=== PATIENT | female | born 1950 | race Caucasian/White ===

== ENCOUNTER → 2016-12-08 | Outpatient (CLI) | payer MEDICARE | END | disposition home or self-care (01) | LOC: LABPAT 14:42 | PROVIDERS: ATTEND Orthopaedic Surgery | DX: Z01.812 Encounter for preprocedural laboratory examination (principal) | CPT/HCPCS: 87070 ==

== ENCOUNTER 2016-12-23 07:20 | Inpatient (IN) | payer MEDICARE ==
--- NOTE | 2016-12-22 10:36 | HP ---
DATE OF ADMISSION: CHIEF COMPLAINT: Right knee pain. HISTORY OF PRESENT ILLNESS: The patient is a 65-year-old retired female who presents with progressive right knee pain secondary to osteoarthrosis, despite extensive conservative treatment. She has tried previous medications along with injections with only partial temporary relief. She notes knee pain severely limits her normal function and activities. PAST MEDICAL HISTORY: Significant for arthritis, hypertension. PAST SURGICAL HISTORY: Significant for cholecystectomy, hysterectomy, left total knee arthroplasty, right foot surgery and tonsillectomy. CURRENT MEDICATIONS: 1. Aleve. 2. Aspirin. 3. Atenolol. 4. Benadryl. 5. Lisinopril. 6. Prilosec. 7. Simvastatin. She denies drug allergies. FAMILY HISTORY: Significant for COPD and Parkinson's. SOCIAL HISTORY: Negative for current tobacco or alcohol use. A 16-point review of systems otherwise reviewed and is noncontributory. On examination, the patient is approximately 5 foot 1, 184 pounds of endomorphic habitus. HEENT exam is nonfocal. Neck is supple. She is nontender about the cervical, thoracic and lumbar spine. She has painless passive motion of the right hip. Straight leg raise is negative. Active motion right knee -7 to 105 degrees of flexion. She has a moderate effusion. She is tender about the medial joint line. Collaterals are stable, Solomon is negative, Elke's is equivocal. She has genu varum alignment. Her distal neurovascular exam appears be intact in the right lower extremity. Previous x-rays to include weight-bearing, notch, lateral, and merchant views of the right knee obtained in the office show severe medial and patellofemoral compartment narrowing. IMPRESSION: 1. Right knee severe medial and patellofemoral compartment osteoarthrosis. 2. Increased body mass index. RECOMMENDATIONS: I talked to the patient at length regarding her treatment options. At this point, she opts to proceed with surgery. We will plan to proceed with right total knee arthroplasty. Risks and benefits are discussed at length in layman's terms. We will institute DVT prophylaxis postoperatively. The patient underwent preoperative medical evaluation by Dr. Ledesma.
[~2016-12-23 07:20] MED LIST: ACETAMINOPHEN TAB 500 MG TAB PO ONE; DEXAMETHASONE SOD PHOSPHATE 10 MG/ML 1 ML VIAL IV ONE; HYDROmorphone 1 MG/ML 1 ML SYRINGE IVP PRN; LACTATED RINGERS 1,000 ML IV SCH; MELOXICAM 7.5 MG TAB PO ONE; MIDAZOLAM 2 MG/2 ML VIAL IV PRN; ONDANSETRON 4 MG/2 ML VIAL IVP ONE; TRANEXAMIC ACID 1,000 MG in SODIUM CHLORIDE 0.9% 100 ML IVPB ONE; ceFAZolin 2 GM in SODIUM CHLORIDE 0.9% 100 ML IVPB ONE
[2016-12-23 11:57] VITALS: RESP 16
[2016-12-23] MEDS ORDERED: LIDOCAINE 1% 20 ML VIAL (10MG/ML) FOR IV START INTRADERMA ONE (12:03)
[2016-12-23] MEDS ORDERED: ROPIVACAINE 1,100 MG, SODIUM CHLORIDE 0.9% 330 ML MISCELLANE PRN ×2 (13:27)
--- NOTE | 2016-12-23 13:30 | P.ONQ ---
Anesthesiology Proc Note - PNB - Peripheral Nerve Block Performed Right Adductor Canal Time Out Performed: Yes (12:16) Indication: Acute Post-Operative Pain, Requested by physician (Dr Cabrales) Sedation Type: Sedate with meaningful contact maintained Preparation: Sterile Dressing Position: Supine Catheter: Indwelling Needle Types: On-Q Needle Size: 100mm (4") Needle Gauge: 20 Technique: Ultrasound Injectate: 0.5% Ropivacaine (see comment for volume) (22cc) Blood Aspirated: No Pain Paresthesia on Injection Noted: No Resistance on Injection: Normal Events: Uneventful and Well Tolerated
[2016-12-23] MEDS ORDERED: ROPIVACAINE 246.25 MG, EPINEPHrine 0.5 MG, KETOROLAC 30 MG, cloNIDine HCL/PF 80 MCG, WA... MISCELLANE ONE ×5 (13:40)
[2016-12-23] MEDS ORDERED: GLYCOPYRROLATE 0.2 MG/ML 2 ML VIAL ONE (14:06)
[2016-12-23] MEDS ORDERED: MIDAZOLAM 2 MG/2 ML VIAL ONE (14:06)
[2016-12-23] MEDS ORDERED: LIDOCAINE 1% INJ 10MG/ML (20 ML MDV) ONE (14:06)
[2016-12-23] MEDS ORDERED: ROCURONIUM BROMIDE 10 MG/ML 10 ML VIAL IV ONE (14:06)
[2016-12-23] MEDS ORDERED: PROPOFOL 10 MG/ML 20 ML VIAL IV ONE (14:06)
[2016-12-23] MEDS ORDERED: NEOSTIGMINE 1 MG/ML 10 ML VIAL ONE (14:06)
[2016-12-23] MEDS ORDERED: SUCCINYLCHOLINE CHLORIDE 100 MG/5 ML SYR IV ONE (14:06)
[2016-12-23] MEDS ORDERED: fentaNYL (PF) 50 MCG/ML 2 ML AMP ONE (14:06)
[2016-12-23] MEDS ORDERED: ceFAZolin 3,000 MG in SODIUM CHLORIDE 0.9% IRRIGATIO 3,000 ML IRRIGATION ONE (14:52)
[2016-12-23] MEDS ORDERED: LACTATED RINGERS 1,000 ML IV ONE ×2 (15:05→16:08)
[2016-12-23] MEDS ORDERED: HYDROmorphone 1 MG/ML 1 ML SYRINGE IVP PRN ×2 (16:21)
[2016-12-23] MEDS ORDERED: HYDROcodone/APAP 5-325MG 1 EACH TAB PO PRN (16:21)
[2016-12-23] MEDS ORDERED: ONDANSETRON 4 MG/2 ML VIAL IVP PRN (16:21)
[2016-12-23] MEDS ORDERED: traMADol 50 MG TAB PO PRN (16:21)
[2016-12-23] MEDS ORDERED: MAGNESIUM HYDROXIDE 2,400 MG/10 ML CUP PO PRN (16:21)
[2016-12-23] MEDS ORDERED: NALOXONE 0.4 MG/ML 1 ML VIAL IV PRN (16:21)
--- NOTE | 2016-12-23 16:44 | P.OP ---
Date of Procedure: 12/23/16 Preoperative Diagnosis: Severe right knee tricompartmental osteoarthrosis-primary Postoperative Diagnosis: Same Procedure(s) Performed: Right total knee gwlbvincrrnq-khhaurnn-dcvlgzra retaining Implants: Depuy Attune size 5 cemented femoral component, size 4 cemented tibial component , 9 mm articular surface, 35 mm cemented patellar component. This is a cruciate retaining implant. Anesthesia: GETA, regional, local Surgeon: Alex Cabrales Senior Tax Specialist #1: Mani Augustine Estimated Blood Loss (ml): 50 Pathology: other (Bone fragments) Condition: stable Disposition: PACU Indications for Procedure: The patient's a 65-year-old female presents with progressive right knee pain secondary to osteoarthrosis despite conservative measures. A discussion of the risks and benefits of operative intervention versus continued conservative measures was made with patient. She opted to proceed with surgery. Operative risks to include infection, neurovascular injury, development of blood clots, possible component loosening, possible component failure and need for subsequent procedures was discussed. Informed consent was obtained. Operative Findings: Severe tricompartmental osteoarthrosis Description of Procedure: The patient was brought to the operating room, and after induction of general anesthesia as a spinal anesthetic was not obtainable, the right lower extremity was prepped and draped in a normal fashion. The limb was elevated to facilitate exsanguination. The tourniquet was inflated to 270 mm mode. A longitudinal incision extending 3 finger breaths above this year pole of patella extending to the medial aspect of the tibial tubercle was then made. The skin and subcutaneous tissues were divided sharply. Electrocautery was used for hemostasis. A medial parapatellar arthrotomy was performed. The medial soft tissues to include the superficial and deep portions of the medial collateral ligament as well as the medial hamstring tendons were elevated subperiosteally. Medial proximal tibial osteophytes were carefully removed. The patella was everted. The portion of the retropatellar fat pad was excised sharply. The knee was then flexed. The anterior cruciate ligament was sacrificed. Blunt retractors were placed. A starting hole was made in the distal femur 1 cm anterior to the posterior cruciate ligament origin. An intramedullary guide was then gently inserted planning on 5 valgus distal cut with 9 mm distal resection. The cutting block was pinned in place. The distal cut was then made. The posterior referencing sizing guide was utilized. 3 of external rotation was built into the system and verified off the trans- epicondylar axis and the posterior condyles. I felt size 5 was most appropriate. The cutting block was pinned in place. The anterior, posterior, and chamfer cuts were then made. The bone fragments were removed. The notch cut was then made with the appropriate guide. The trial size 5 femoral component was placed and was fully seated. There was good anterior to posterior and medial to lateral fit. The peg holes were drilled. The trial component was removed. An extra medullary tibial guide was utilized in line with the tibial shaft and second metatarsal distally. I planned on 7 mm of posterior slope. I planned on 2 mm resection from the medial compartment. The cutting block was pinned in place. The posterior cruciate ligament was protected with a retractor. The proximal tibial cut was made in the bone was removed in one fragment. The tibia sized most appropriate size 4. The remnants of the medial and lateral menisci were excised the capsule junction with electrocautery. The posterior osteophytes off the distal femur were carefully removed a curved osteotome. The flexion and extension gaps were checked and felt to be symmetric. The trial femoral and tibial components placed along with a 9 mm articular surface. I was able to obtain full flexion and extension with good stability with varus and valgus stress. After several flexion and extension cycles the tibial rotation was marked with electrocautery in line with the medial one third of the tibial tubercle. The patella was prepared with the reamer taking this down to 14 mm of bone stock. A good flush cut was made. Patella sized most appropriately 35 mm. The peg holes were drilled. The trial components placed. The knee was taken through range of motion. I had good patellofemoral tracking with no hands technique. The trial components were removed. The tibia was prepared in the appropriate rotation with appropriate drill and keel punch. The bony surfaces were prepared with pulsatile lavage and dried. The posterior soft tissues were injected with ropivacaine. The tibial component was then cemented in placed and was fully seated. Excess cement was removed. The femoral component cemented in placed and was fully seated. Excess cement was removed. The trial 9 m articular surface was placed and the knee was put in full extension. The patella component was cemented in placed and was fully seated. Excess cement was removed. After the cement had sufficiently hardened, the knee was again taken through range of motion. Again I had good stability with varus and valgus stress in flexion and extension. The trial articular surface was removed and the final 9 mm articular surface placed. This was fully seated. Care was taken to avoid any soft tissue interposition. Pulsatile lavage was utilized. The medial parapatellar arthrotomy was closed with running #2 Ethibond suture. A deep drain was placed exiting laterally. The tourniquet was deflated with proximally 70 minutes total tourniquet time. Final hemostasis was obtained with electrocautery. The subcu tissues reapproximated interrupted 2-0 Vicryl sutures. The skin was repaired with 3-0 subcuticular strata fix suture. Skin tape and adhesive was applied. A sterile dressing was applied. The patient was awoken from general anesthesia and transferred to the recovery room in good condition. Blood loss was estimated at 80 mL. No complications were incurred. Sponge and needle counts were correct at the end the case.
--- NOTE | 2016-12-23 16:52 | XR ---
EXAMINATION TYPE: XR knee limited RT DATE OF EXAM: 12/23/2016 4:44 PM COMPARISON: NONE TECHNIQUE: One view submitted HISTORY: Post op FINDINGS: There is a prosthetic knee in near anatomic alignment. There is soft tissue edema and emphysema. Boss rgical drain noted. IMPRESSION: 1. Postoperative change. Appears in near-anatomic alignment
[2016-12-23] MEDS ORDERED: ROPIVACAINE 5 MG/ML 30 ML VIAL MISCELLANE ONE (16:54)
[2016-12-23] MEDS: SENNOSIDES-DOCUSATE SODIUM 1 EACH TAB PO SCH (20:11)
[2016-12-23] MEDS ORDERED: ACETAMINOPHEN TAB 500 MG TAB PO PRN (20:56)
[2016-12-23] MEDS: ceFAZolin 2 GM in SODIUM CHLORIDE 0.9% 100 ML IVPB SCH (21:20)
[2016-12-23] MEDS: DULoxetine HCL 60 MG CAPSULE.DR PO SCH (21:22)
[2016-12-23] MEDS: CHOLECALCIFEROL 1,000 UNIT TAB PO SCH (21:22)
[2016-12-23] MEDS: diphenhydrAMINE 25 MG CAP PO PRN (21:22)
[2016-12-23] MEDS: PANTOPRAZOLE 40 MG TABLET PO SCH (21:22)
[2016-12-23] MEDS: ATORVASTATIN 20 MG TAB PO SCH (21:22)
[2016-12-23 21:30] VITALS: BMI 29.2
[2016-12-23] MEDS: HYDROcodone/APAP 5-325MG 1 EACH TAB PO PRN (23:03)
--- NOTE | 2016-12-23 23:08 | P.CONS ---
History of Present Illness - Reason for Consult Consult date: 12/23/16 Medical management Requesting physician: Alex Cabrales - Chief Complaint Post right total knee arthroplasty, hypertension, hyperlipidemia, hypothyro - History of Present Illness 65-year-old female with past medical history of hypertension, hyperlipidemia hypothyroidism and Raynaud's who had left total knee arthroplasty long time ago and has done very well with it. Patient had developed severe increased arthritis of the right knee for the last 2 years become much worse the last few month had affected her ability to ambulate be active and be able to enjoy life. Patient was seen Dr. Caraballo with her failure to conservative management patient was scheduled for elective right total knee arthroplasty which was done today successfully with no major complication. Patient was admitted to the surgical floor afterward has been watch and monitor hemodynamically pain is under control so far patient is doing well. Review of Systems Constitutional: Reports fatigue, Reports lethargy, Reports malaise, Reports weakness, Denies as per HPI, Denies anorexia, Denies chills, Denies chronic headaches, Denies chronic pain, Denies daytime sleepiness, Denies fever, Denies night sweats, Denies poor appetite, Denies sweats, Denies weight gain, Denies weight loss Eyes: bilateral as per HPI Ears: bilateral: decreased hearing Ears, nose, mouth and throat: Reports ant. neck pain, Reports nasal discharge, Reports sinus pain, Reports sinus pressure, Denies as per HPI, Denies bleeding gums, Denies dental pain, Denies dysphagia, Denies epistaxis, Denies headache, Denies hoarseness, Denies mouth pain, Denies nasal congestion, Denies neck fullness/pressure, Denies neck lump, Denies nose pain, Denies odynophagia, Denies post-nasal drip, Denies swelling in mouth, Denies swelling in throat, Denies sore throat, Denies vertigo, Denies voice changes Cardiovascular: Reports leg edema, Denies as per HPI, Denies chest pain, Denies claudication, Denies decreased exercise tolerance, Denies dyspnea on exertion, Denies edema, Denies high blood pressure, Denies irregular heart beat, Denies lightheadedness, Denies orthopnea, Denies palpitations, Denies paroxysmal nocturnal dyspnea, Denies phlebitis, Denies rapid heart beat, Denies shortness of breath, Denies syncope Respiratory: Reports congestion, Reports cough, Denies as per HPI, Denies cough with sputum, Denies dyspnea, Denies excessive sputum, Denies hemoptysis, Denies home oxygen, Denies pain, Denies pain on inspiration, Denies pleurisy, Denies respiratory infections, Denies sleep apnea, Denies snoring, Denies wheezing Gastrointestinal: Reports abdominal pain, Reports dyspepsia, Reports early satiety, Reports indigestion, Reports nausea, Denies as per HPI, Denies belching , Denies bloating, Denies BRBPR, Denies change in bowel habits, Denies coffee ground emesis, Denies constipation, Denies diarrhea, Denies excessive gas, Denies heartburn, Denies hematemesis, Denies hematochezia, Denies jaundice, Denies lactose intolerance, Denies loss of appetite, Denies melena, Denies vomiting Genitourinary: Denies as per HPI, Denies abnormal vaginal bleeding, Denies decreased libido, Denies difficulty conceiving, Denies difficulty voiding, Denies dysmenorrhea, Denies dyspareunia, Denies dysuria, Denies flank pain, Denies genital sores, Denies hematuria, Denies hot flashes, Denies incomplete emptying, Denies kidney stones, Denies menorrhagia, Denies mixed incontinence, Denies nocturia, Denies pelvic pain, Denies post void dribbling, Denies , Denies prolapse symptoms, Denies stress incontinence, Denies urge incontinence , Denies urgency, Denies urinary frequency, Denies vaginal discharge, Denies vaginal dryness, Denies vaginal itching, Denies vaginal odor Musculoskeletal: Reports myalgias, Reports neck pain, Reports neck stiffness, Denies as per HPI, Denies arm numbness/tingling, Denies atrophy, Denies fractures, Denies frequent falls, Denies gait dysfunction, Denies hot joints, Denies leg numbness/tingling, Denies limitation of motion, Denies loss of height , Denies low back pain, Denies morning stiffness, Denies muscle cramps, Denies muscle weakness, Denies prior amputations, Denies redness of joints, Denies shooting arm pain, Denies shooting leg pain Integumentary: Reports pruritus, Reports rash, Denies as per HPI, Denies acne, Denies boils, Denies brittle nails, Denies change in hair/nails, Denies color changes, Denies darkening of skin, Denies depigmentation, Denies dryness, Denies foot/leg ulcers, Denies growths, Denies hirsutism, Denies lesions, Denies onychomycosis, Denies sores, Denies striae, Denies unusual bruising, Denies wounds Neurological: Denies as per HPI, Denies aphasia, Denies ataxia, Denies balance difficulties, Denies burning pain, Denies change in mentation, Denies change in smell/taste, Denies change in speech, Denies confusion, Denies convulsions, Denies double vision, Denies gait dysfunction, Denies head injury, Denies headaches, Denies hearing difficulties, Denies lack of coordination, Denies loss of vision, Denies memory loss, Denies migraines, Denies motor disturbance, Denies numbness, Denies paralysis, Denies paresthesias, Denies seizures, Denies sensory deficit, Denies spasticity, Denies syncope, Denies tic, Denies tingling , Denies transient paralysis, Denies tremors, Denies vertigo, Denies weakness, Denies visual changes Psychiatric: Reports anhedonia, Reports depression, Reports mood swings, Reports sadness/tearfulness, Denies as per HPI, Denies anxiety, Denies anxiety attacks, Denies change in appetite, Denies change in libido, Denies change in sleep habits, Denies confusion, Denies difficulty concentrating, Denies disorientation, Denies hallucinations, Denies hopelessness, Denies hypersomnia, Denies insomnia, Denies irritability, Denies memory loss, Denies paranoia, Denies sleep disturbances, Denies suicidal ideation Endocrine: Reports nocturia, Reports polyphagia, Reports polyuria, Denies as per HPI, Denies cold intolerance, Denies deepening of the voice, Denies excessive sweating, Denies excessive thirst, Denies fatigue, Denies flushing, Denies heat intolerance, Denies high blood sugars, Denies increase in ring/shoe/ hat size, Denies low blood sugars, Denies palpitations, Denies polydipsia, Denies proptosis, Denies recent glucocorticoid use, Denies thyroid mass, Denies weight change Hematologic/Lymphatic: Denies as per HPI, Denies easy bleeding, Denies easy bruising, Denies lymphadenopathy, Denies lymphedema, Denies thrombophilia Allergic/Immunologic: Denies as per HPI, Denies allergic rhinitis, Denies anaphylaxis, Denies angioedema, Denies gluten intolerance, Denies persistent infections, Denies seasonal allergies, Denies urticaria, Denies wheezing Past Medical History Past Medical History: Chest Pain / Angina, Hyperlipidemia, Hypertension, Osteoarthritis (OA), Thyroid Disorder Additional Past Medical History / Comment(s): Raynauds, varicose veins, hx frequent UTI's History of Any Multi-Drug Resistant Organisms: None Reported Past Surgical History: Cholecystectomy, Heart Catheterization, Hysterectomy, Joint Replacement, Orthopedic Surgery, Tonsillectomy Additional Past Surgical History / Comment(s): left knee replacement, surgery hammertoes darrell feet, heel spur rt foot, wrist right tendonitis surgery Past Anesthesia/Blood Transfusion Reactions: Family History of Problems w/ Anesthesia Additional Past Anesthesia/Blood Transfusion Reaction / Comm: sister-pt not sure of what problems(will try to find out prior to surgery) Past Psychological History: Depression Smoking Status: Never smoker Past Alcohol Use History: Rare Past Drug Use History: None Reported - Past Family History Mother Family Medical History: Congestive Heart Failure (CHF) Father Family Medical History: Myocardial Infarction ([place]) Medications and Allergies Home Medications Medication Instructions Recorded Confirmed Type Acetaminophen [Tylenol] 500 mg PO Q4H PRN 12/18/16 12/23/16 History Aspirin [Adult Low Dose Aspirin EC] 81 mg PO DAILY 12/18/16 12/23/16 History Cholecalciferol [Vitamin D3] 1,000 unit PO BID 12/18/16 12/23/16 History DULoxetine HCL [Cymbalta] 60 mg PO HS 12/18/16 12/23/16 History Lisinopril [Zestril] 10 mg PO DAILY 12/18/16 12/23/16 History Multivitamins, Thera [Multivitamin] 1 tab PO DAILY 12/18/16 12/23/16 History NIFEdipine [NIFEdipine ER] 60 mg PO DAILY 12/18/16 12/23/16 History Naproxen Sodium [Aleve] 220 mg PO Q12HR 12/18/16 12/23/16 History Omeprazole 40 mg PO BID 12/18/16 12/23/16 History Simvastatin [Zocor] 40 mg PO HS 12/18/16 12/23/16 History diphenhydrAMINE HCL [Benadryl] 25 mg PO Q4H PRN 12/18/16 12/23/16 History Allergies Allergy/AdvReac Type Severity Reaction Status Date / Time No Known Allergies Allergy Verified 12/23/16 17:10 Physical Exam Vitals: Vital Signs Temp Pulse Pulse Resp BP BP Pulse Ox 12/23/16 20:36 97 12/23/16 19:30 89 121/79 12/23/16 19:15 87 124/74 12/23/16 19:00 85 120/71 12/23/16 18:45 86 116/70 12/23/16 18:30 88 121/68 12/23/16 18:15 82 121/70 12/23/16 18:00 85 111/70 12/23/16 17:45 93 116/72 12/23/16 17:30 97.1 F L 85 16 115/69 97 12/23/16 17:15 87 16 127/55 96 12/23/16 17:00 85 16 129/65 97 12/23/16 16:45 88 16 124/65 97 12/23/16 16:34 98.0 F 91 16 123/64 97 12/23/16 11:55 98.2 F 95 16 126/73 95 Intake and Output 12/23/16 12/23/16 12/23/16 06:59 14:59 22:59 Intake Total 1101 4099 Output Total 225 Balance 1101 3874 Intake: IV 1101 4099 Output: Urine 175 Estimated Blood Loss 50 Other: Weight 72.575 kg Patient Weight 12/24/16 06:59 Weight 72.575 kg - Constitutional General appearance: no average body habitus, cooperative, no disheveled, no mild distress, no morbidly obese, no acute distress, no obese, no severe distress, no thin - EENT Eyes: no abnormal pupil, no anicteric sclerae, no disc margins sharp, no edentulous, no EOMI, no PERRLA, no fundus normal, no photophobia, no dentition normal, no poor dentition, no ptosis, no scleral icterus, normal appearance ENT: no hard of hearing, no hearing grossly normal, no NA/AT, no normal oropharynx, no other, pharyngeal erythema, no thrush, no tonsillar exudates, no tonsillar swelling Ears: bilateral: normal - Neck Neck: no lymphadenopathy, normal ROM, no other, no rigidity, no stridor, no thyromegaly Carotids: bilateral: upstroke normal Thyroid: bilateral: normal size - Respiratory Respiratory: bilateral: CTA - Cardiovascular Rhythm: regular Heart sounds: normal: S1, S2 Abnormal Heart Sounds: systolic murmur - Gastrointestinal General gastrointestinal: no absent bowel sounds, no decreased bowel sounds, no distended, no hepatomegaly, no hyperactive bowel sounds, normal bowel sounds, no organomegaly, no rigid, no scaphoid, soft, no splenomegaly, no tenderness, no umbilical hernia, no ventral hernia - Integumentary Integumentary: no calor, no cellulitis, no cyanotic, no decreased turgor, no flushed, no jaundiced, normal, no normal turgor, pale, no rash, no ulcer - Neurologic Neurologic: CNII-XII intact - Musculoskeletal Musculoskeletal: gait normal, generalized weakness, strength equal bilaterally, no right sided weakness, no left sided weakness - Psychiatric Psychiatric: A&O x's 3, appropriate affect Assessment and Plan Plan: 1 post right total knee arthroplasty: Stable resume home meds, watch patient hemodynamic status, GI, DVT, pulmonary prophylaxis protocol will be use. 2 hypertension: Has been well controlled on nifedipine and lisinopril continue both medication. 3 hyperlipidemia: Has been on Zocor 40 mg daily. 4 severe GERD: Has been on omeprazole 40 mg twice a day continue medication. 5 depression: Has been on Cymbalta 60 mg daily. 6 DVT prophylaxis: Patient was started on Xarelto 10 mg daily for the next 4 weeks. 7 pain management: Patient has a block currently and was started on hydrocodone orally as needed. CODE STATUS: Full code. Dr. Cabrales thank you very much for the consult if I can be any further help to please let me know.
[2016-12-24] MEDS: diphenhydrAMINE 25 MG CAP PO PRN ×2 (01:10→22:16)
[2016-12-24] MEDS: HYDROcodone/APAP 5-325MG 1 EACH TAB PO PRN ×4 (04:16→19:59)
[2016-12-24] MEDS: ceFAZolin 2 GM in SODIUM CHLORIDE 0.9% 100 ML IVPB SCH (05:24)
[2016-12-24 07:20] LABS: Basophils % (A) 0 %; CHCM 33.2; Eosinophils % (A) 0 %; HDW 2.36; HGB 10.9 gm/dL (11.4-16.0); Luc # (Auto) 0.15; Luc % (Auto) 2; Lymphocytes # (A) 1.4 k/uL (1.0-4.8); Lymphocytes % (A) 18 %; MCH 31.9 pg (25.0-35.0); MCV 96.8 fL (80.0-100.0); Mean Platelet Volume 6.7; Monocytes # (A) 0.5 k/uL (0-1.0); Monocytes % (A) 7 %; Neutrophils % (A) 74 %; RBC 3.41 m/uL (3.80-5.40); RDW 12.3 % (11.5-15.5); WBC 8.2 k/uL (3.8-10.6); WBC (Perox) 8.68
[2016-12-24] MEDS: PANTOPRAZOLE 40 MG TABLET PO SCH ×2 (08:48→17:57)
[2016-12-24] MEDS: FAMOTIDINE 20 MG TAB PO SCH (08:48)
[2016-12-24] MEDS: ASPIRIN 81 MG CHEW PO SCH (08:48)
[2016-12-24] MEDS: RIVAROXABAN 10 MG TAB PO SCH (08:49)
[2016-12-24] MEDS: CHOLECALCIFEROL 1,000 UNIT TAB PO SCH ×2 (08:49→19:59)
[2016-12-24] MEDS: LISINOPRIL 10 MG TAB PO SCH (08:49)
[2016-12-24] MEDS: MULTIVITAMINS, THERA 1 EACH TAB PO SCH (08:50)
--- NOTE | 2016-12-24 10:10 | P.PN ---
Progress Note - Text . Postoperative day # 1 status post total right knee arthroplasty, and adductor canal catheter placed for postoperative analgesia, currently at ropivacaine 0.2% 8 mL per hour and continuous infusion, catheter site local. There is no erythema, and there is no tenderness, visual analogue scale is 4/10 , patient using oral pain medication for breakthrough pain. Assessment and plan= Acute postoperative pain, adductor canal catheter for pain control, pain is well controlled we'll continue the same management.
--- NOTE | 2016-12-24 12:29 | P.PN ---
Subjective Principal diagnosis: Status post right total knee arthroplasty Patient is seen today resting in her hospital bed, she appears comfortable. Pain is well-controlled at this time. She denies any chest pain, shortness of breath, fever chills, lightheadedness. Objective - Vital Signs Vital signs: Vital Signs Temp 98.9 F 12/24/16 11:57 Pulse 86 12/24/16 11:57 Resp 16 12/24/16 11:57 BP 142/64 12/24/16 11:57 Pulse Ox 95 12/24/16 11:57 Intake & Output 12/23/16 12/24/16 12/24/16 18:59 06:59 18:59 Intake Total 5200 500 500 Output Total 225 1450 1900 Balance 4975 -950 -1400 Weight 72.575 kg Intake: IV 5200 500 Lactated Ringers 1,000 ml 450 @ 50 mls/hr IV .Q20H TONY Rx#:[id number] ceFAZolin 2 gm In Sodium 50 Chloride 0.9% 100 ml @ 100 mls/hr IVPB ONCE ONE Rx#:[id number] Oral 500 Output: Drainage 250 Right Knee 250 Urine 175 1200 1900 Uretheral (Sandra) 1200 1900 Estimated Blood Loss 50 Other: Voiding Method Indwelling Catheter Indwelling Catheter - Exam Right lower extremity: Incision is clean, dry and intact. Minimal swelling present around the knee. Calf is soft, no tenderness with palpation. Plantar flexion, dorsiflexion, EHL , FHL are intact. Sensory exam to light touch starting extremities intact, cap refills less than 2 seconds - Labs CBC & Chem 7: 12/24/16 06:58 Labs: Abnormal Lab Results - Last 24 Hours (Table) 12/24/16 Range/Units 06:58 RBC 3.41 L (3.80-5.40) m/uL Hgb 10.9 L (11.4-16.0) gm/dL Hct 33.0 L (34.0-46.0) % Assessment and Plan Plan: Assessment: 1. Postop day #1 status post right total knee arthroplasty Plan: 1. Pain control, continue supportive oral medications 2. Continue use of therapy and CPM 3. Ice and elevate/daily dressing changes 4. Encourage his spirometer 5. GI and DVT prophylaxis 6. Medical recommendations 7. Discharge planning: Patient will likely be discharged home tomorrow Time with Patient: Less than 30
--- NOTE | 2016-12-24 15:57 | P.PN ---
Subjective Principal diagnosis: Post right total knee arthroplasty, hypertension, hyperlipidemia, hypothyro 65-year-old female with past medical history of hypertension, hyperlipidemia hypothyroidism and Raynaud's who had left total knee arthroplasty long time ago and has done very well with it. Patient had developed severe increased arthritis of the right knee for the last 2 years become much worse the last few month had affected her ability to ambulate be active and be able to enjoy life. Patient was seen Dr. Caraballo with her failure to conservative management patient was scheduled for elective right total knee arthroplasty which was done today successfully with no major complication. Patient was admitted to the surgical floor afterward has been watch and monitor hemodynamically pain is under control so far patient is doing well. Pain is well managed through the night, CHILD PROTECTIVE SERVICES SPECIALIST was stopped, fully catheter was removed and patient was start ambulating today with PT. Objective - Vital Signs Vital signs: Vital Signs Temp 97.6 F 12/24/16 15:00 Pulse 86 12/24/16 15:00 Resp 16 12/24/16 15:00 BP 136/58 12/24/16 15:00 Pulse Ox 97 12/24/16 15:00 Intake & Output 12/23/16 12/24/16 12/24/16 18:59 06:59 18:59 Intake Total 5200 500 1000 Output Total 225 1450 1900 Balance 4975 -950 -900 Weight 72.575 kg Intake: IV 5200 500 Lactated Ringers 1,000 ml 450 @ 50 mls/hr IV .Q20H [facility] Rx#:[id number] ceFAZolin 2 gm In Sodium 50 Chloride 0.9% 100 ml @ 100 mls/hr IVPB ONCE ONE Rx#:[id number] Oral 1000 Output: Drainage 250 Right Knee 250 Urine 175 1200 1900 Uretheral (Sandra) 1200 1900 Estimated Blood Loss 50 Other: Voiding Method Indwelling Catheter Indwelling Catheter # Voids 1 - Constitutional General appearance: Present: cooperative, no acute distress. Absent: average body habitus, disheveled, mild distress, morbidly obese, obese, severe distress , thin - EENT Eyes: Present: normal appearance. Absent: abnormal pupil, anicteric sclerae, disc margins sharp, edentulous, EOMI, PERRLA, fundus normal, photophobia, dentition normal, poor dentition, ptosis, scleral icterus ENT: Present: hard of hearing, normal oropharynx. Absent: hearing grossly normal, NA/AT, other, pharyngeal erythema, thrush, tonsillar exudates, tonsillar swelling Ears: bilateral: normal - Neck Neck: Present: normal ROM. Absent: lymphadenopathy, other, rigidity, stridor, thyromegaly Carotids: bilateral: upstroke normal Thyroid: bilateral: normal size - Respiratory Respiratory: bilateral: CTA, diminished - Cardiovascular Rhythm: regular Heart sounds: normal: S1, S2 Abnormal Heart Sounds: Present: systolic murmur - Gastrointestinal General gastrointestinal: Present: decreased bowel sounds, normal bowel sounds, soft. Absent: absent bowel sounds, distended, hepatomegaly, hyperactive bowel sounds, organomegaly, rigid, scaphoid, splenomegaly, tenderness, umbilical hernia, ventral hernia - Integumentary Integumentary Comment(s): Right knee incision looks fine with no induration hematoma or bleeding no calf tenderness and no swelling in the legs. Integumentary: Present: normal, pale, rash. Absent: calor, cellulitis, cyanotic , decreased turgor, flushed, jaundiced, normal turgor, ulcer - Neurologic Neurologic: Present: CNII-XII intact - Musculoskeletal Musculoskeletal: Present: gait normal, generalized weakness, strength equal bilaterally. Absent: right sided weakness, left sided weakness - Psychiatric Psychiatric: Present: A&O x's 3, appropriate affect. Absent: intact judgment & insight - Labs CBC & Chem 7: 12/24/16 06:58 Labs: Abnormal Lab Results - Last 24 Hours (Table) 12/24/16 Range/Units 06:58 RBC 3.41 L (3.80-5.40) m/uL Hgb 10.9 L (11.4-16.0) gm/dL Hct 33.0 L (34.0-46.0) % Assessment and Plan Plan: 1 post right total knee arthroplasty: Stable resume home meds, watch patient hemodynamic status, GI, DVT, pulmonary prophylaxis protocol will be use. 2 hypertension: Has been well controlled on nifedipine and lisinopril continue both medication. 3 hyperlipidemia: Has been on Zocor 40 mg daily. 4 severe GERD: Has been on omeprazole 40 mg twice a day continue medication. 5 depression: Has been on Cymbalta 60 mg daily. 6 DVT prophylaxis: Patient was started on Xarelto 10 mg daily for the next 4 weeks. 7 pain management: Patient has a block currently and was started on hydrocodone orally as needed. Off IV pain meds and tolerating medication well. CODE STATUS: Full code.
[2016-12-24] MEDS: ATORVASTATIN 20 MG TAB PO SCH ×2 (19:59→20:11)
[2016-12-24] MEDS: DULoxetine HCL 60 MG CAPSULE.DR PO SCH (19:59)
[2016-12-24] MEDS: SENNOSIDES-DOCUSATE SODIUM 1 EACH TAB PO SCH (20:01)
[2016-12-25] MEDS: HYDROcodone/APAP 5-325MG 1 EACH TAB PO PRN ×3 (00:59→12:00)
[2016-12-25 07:13] LABS: Basophils % (A) 0 %; CH 31.9; CHCM 32.8; Eosinophils # (A) 0.2 k/uL (0-0.7); Eosinophils % (A) 4 %; HDW 2.36; HGB 11.4 gm/dL (11.4-16.0); Luc # (Auto) 0.12; Luc % (Auto) 2; Lymphocytes # (A) 1.2 k/uL (1.0-4.8); Lymphocytes % (A) 22 %; MCH 31.7 pg (25.0-35.0); MCHC 32.4 g/dL (31.0-37.0); MCV 97.7 fL (80.0-100.0); Mean Platelet Volume 6.7; Monocytes # (A) 0.5 k/uL (0-1.0); Monocytes % (A) 9 %; Neutrophils # (A) 3.4 k/uL (1.3-7.7); Neutrophils % (A) 62 %; RBC 3.59 m/uL (3.80-5.40); RDW 12.4 % (11.5-15.5); WBC 5.4 k/uL (3.8-10.6); WBC (Perox) 5.46
[2016-12-25 07:33] VITALS: BP 126/72; PULSE 82; TEMP 98.1
[2016-12-25 07:39] LABS: ALT 36 U/L (9-52); AST 29 U/L (14-36); Alkaline Phosphatase 63 U/L (38-126); Anion Gap 6 mmol/L; Blood Urea Nitrogen 11 mg/dL (7-17); Calcium 8.5 mg/dL (8.4-10.2); Carbon Dioxide 29 mmol/L (22-30); Chloride 103 mmol/L (98-107); Glucose 100 mg/dL (74-99); Non-African American GFR(MDRD) >60 (>60 ml/min/1.73 sqM); Potassium 4.3 mmol/L (3.5-5.1); Sodium 138 mmol/L (137-145); Total Bilirubin 0.7 mg/dL (0.2-1.3); Total Protein 5.7 g/dL (6.3-8.2)
--- NOTE | 2016-12-25 08:27 | P.PN ---
Progress Note - Text The patient is status post right adductor canal catheter placement. The catheter was placed for postoperative pain control, status post total right arthroplasty. Ropivacaine 0.2% is infusing at 14 mLs per hour. The patient has no complaints of right lower extremity numbness or weakness. Patient's VAS score is 4 -10. The patient has received some supplemental oral pain medicine. Assessment: Patient's adductor canal catheter is in place and working appropriately. Plan: continue infusion and adjust it as needed.
[2016-12-25] MEDS: LISINOPRIL 10 MG TAB PO SCH (09:38)
[2016-12-25] MEDS: CHOLECALCIFEROL 1,000 UNIT TAB PO SCH (09:38)
[2016-12-25] MEDS: MULTIVITAMINS, THERA 1 EACH TAB PO SCH (09:38)
[2016-12-25] MEDS: RIVAROXABAN 10 MG TAB PO SCH (09:38)
[2016-12-25] MEDS: FAMOTIDINE 20 MG TAB PO SCH (09:38)
[2016-12-25] MEDS: ASPIRIN 81 MG CHEW PO SCH (09:38)
[2016-12-25] MEDS: PANTOPRAZOLE 40 MG TABLET PO SCH (09:39)
--- NOTE | 2016-12-25 11:06 | P.DS ---
Providers Date of admission: 12/23/16 11:29 Expected date of discharge: 12/25/16 Attending physician: Alex Cabrales Consults: 12/23/16 16:21 Consult Physician Routine Consulting Provider: Fitz Ledesma Reason/Comments: Medical management Do you want consulting provider notified?: Yes Primary care physician: Fitz Ledesma Hospital Course: Date of admission: 12/23/2016 Date of discharge: 12/25/2016 Admission diagnosis: Status post right total knee arthroplasty Discharge diagnosis: Same Attending physician: Dr. Cabrales Surgical procedures: Right total knee arthroplasty Brief history: Patient is a 65-year-old female with a history of progressive primary right knee osteoarthritis. At this point patient has failed conservative treatment measures and has opted to proceed with a elective right total knee arthroplasty. Hospital course: Details of patient's surgery can be found in operative report. Patient tolerated the procedure well and was subsequently transported to orthopedic floor. Patient's orthopeidc and medical care was provided daily. Patient had daily laboratory tests performed for evaluation of overall blood counts. Patient had daily physical therapy to include strengthening range of motion as well as education with walker ambulation. Patient had daily CPM usage as part of their physical therapy program. Patient was treated with Xarelto for their postoperative DVT prophylaxis during their inpatient stay. Patient was noted to have a relatively uneventful postoperative course. Patient reported satisfactory pain control with oral pain medications by postoperative day 0. Patient showed satisfactory progress with physical therapy. Patient moved steadily through the program and had no difficulty meeting the goals by postoperative day 2. Given patient's otherwise satisfactory course and having met physical therapy goals, plan is to discharge patient home on postoperative day 2. Discharge condition/disposition: Patient will be discharged home in stable condition. Discharge medications: Instructions are given on resumption of patient's normal daily medications per primary care recommendation, in addition patient will be prescribed [place] 5 mg/325 mg, tramadol 50 mg, Colace 100 mg, Xarelto 10 mg. Discharge instructions: 1. Wound care and infection precautions, keep incision dry and covered while showering, no lotions, creams, moisturizers. No soaking, tubs, pools, hottubs. Do not scrub over the incision. 2. Weight-bear as tolerated with walker / cane until follow-up. 3. Ice and elevate when necessary. Do not exceed 20 minutes per hour with ice pack. 4. Utilize compression sleeve until seen at first follow up appointment. 5. Visiting nursing care. 6. Home physical therapy including home CPM. 7. Pain meds and anticoagulants per prescription. 8. Pain medication has potential to cause constipation. Increase oral fluid and fiber intake. Contact primary care provider if you have not had a bowel movement within 48 hours after discharge 9. No anti-inflammatory medication until discussed at first post operative visit, this including Motrin, Aleve, Mobic, Diclofenac. 10. Follow up in office at 2 weeks postop with Orlin Augustine PA-C 11. Follow up with your primary care doctor 7-10 days after discharge. 12. Contact [facility] with any questions, . Procedures: Right total knee arthroplasty Patient Condition at Discharge: Good Plan - Discharge Summary New Discharge Prescriptions: Docusate [Colace] 100 mg PO DAILY #20 capsule Hydrocodone/Acetaminophen [[place] 5-325] 1 - 2 each PO Q6HR PRN #60 tab PRN Reason: Pain Rivaroxaban [Xarelto] 10 mg PO DAILY #12 tab traMADol HCl [Ultram] 50 mg PO Q6H PRN #40 tab PRN Reason: Pain Discharge Medication List Acetaminophen [Tylenol] 500 mg PO Q4H PRN 12/18/16 [History] Aspirin [Adult Low Dose Aspirin EC] 81 mg PO DAILY 12/18/16 [History] Cholecalciferol [Vitamin D3] 1,000 unit PO BID 12/18/16 [History] DULoxetine HCL [Cymbalta] 60 mg PO HS 12/18/16 [History] Lisinopril [Zestril] 10 mg PO DAILY 12/18/16 [History] Multivitamins, Thera [Multivitamin] 1 tab PO DAILY 12/18/16 [History] NIFEdipine [NIFEdipine ER] 60 mg PO DAILY 12/18/16 [History] Naproxen Sodium [Aleve] 220 mg PO Q12HR 12/18/16 [History] Omeprazole 40 mg PO BID 12/18/16 [History] Simvastatin [Zocor] 40 mg PO HS 12/18/16 [History] diphenhydrAMINE HCL [Benadryl] 25 mg PO Q4H PRN 12/18/16 [History] Rivaroxaban [Xarelto] 10 mg PO DAILY #12 tab 12/23/16 [Rx] Docusate [Colace] 100 mg PO DAILY #20 capsule 12/25/16 [Rx] Hydrocodone/Acetaminophen [[place] 5-325] 1 - 2 each PO Q6HR PRN #60 tab 12/25/16 [Rx] traMADol HCl [Ultram] 50 mg PO Q6H PRN #40 tab 12/25/16 [Rx] Follow up Appointment(s)/Referral(s): Mani Augustine PAC [PHYSICIAN PULL WORKER] - 2 Weeks [facility] Visiting Nurse, [NON-STAFF] - Patient Instructions/Handouts: Knee Replacement (DC) Activity/Diet/Wound Care/Special Instructions: Walker - has at home CPM - has at home Orthopedic Discharge Instructions: 1. Wound care and infection precautions, keep incision dry and covered while showering, no lotions, creams, moisturizers. No soaking, pools, hot tubs. Do not scrub over incision. 2. Weight-bear as tolerated with walker / cane until follow-up. 3. Ice and elevate when necessary. Do not exceed 20 minutes per hour with ice pack. 4. Utilize compression sleeve until seen at first follow up appointment. 5. Visiting nursing care. 6. Home physical therapy including home CPM. 7. Pain meds and anticoagulants per prescription. 8. Pain medication has potential to cause constipation. Increase oral fluid and fiber intake. Contact primary care provider if you have not had a bowel movement within 48 hours after discharge. 9. No anti-inflammatory medication until discussed at first post operative visit, this including Motrin, Aleve, Mobic, Diclofenac. 10. Follow up in office at 2 weeks postop with Orlin Augustine PA-C 11. Follow up with your primary care doctor 7-10 days after discharge. 12. Contact [facility] with any questions, . Discharge Disposition: HOME WITH HOME HEALTH SERVICES
--- NOTE | 2016-12-25 11:06 | P.PN ---
Subjective Principal diagnosis: Status post right total knee arthroplasty Patient is seen today resting in her hospital bed, she appears comfortable. Pain is well-controlled at this time. She denies any chest pain, shortness of breath, fever chills, lightheadedness. Objective - Vital Signs Vital signs: Vital Signs Temp 98.1 F 12/25/16 07:00 Pulse 82 12/25/16 07:00 Resp 16 12/25/16 07:00 BP 126/72 12/25/16 07:00 Pulse Ox 93 L 12/25/16 07:00 Intake & Output 12/24/16 12/25/16 12/25/16 18:59 06:59 18:59 Intake Total 1500 240 Output Total 1900 Balance -400 240 Intake: Oral 1500 240 Output: Urine 1900 Uretheral (Sandra) 1900 Other: Voiding Method Indwelling Catheter Toilet Toilet # Voids 1 1 1 - Exam Right lower extremity: Incision is clean, dry and intact. Minimal swelling present around the knee. Calf is soft, no tenderness with palpation. Plantar flexion, dorsiflexion, EHL , FHL are intact. Sensory exam to light touch starting extremities intact, cap refills less than 2 seconds - Labs CBC & Chem 7: 12/25/16 06:35 12/25/16 06:35 Labs: Abnormal Lab Results - Last 24 Hours (Table) 12/25/16 12/25/16 Range/Units 06:35 06:35 RBC 3.59 L (3.80-5.40) m/uL Glucose 100 H (74-99) mg/dL Total Protein 5.7 L (6.3-8.2) g/dL Albumin 3.3 L (3.5-5.0) g/dL Assessment and Plan Plan: Assessment: 1. Postop day #2 status post right total knee arthroplasty Plan: 1. Pain control, continue supportive oral medications 2. Continue use of therapy and CPM 3. Ice and elevate/daily dressing changes 4. Encourage his spirometer 5. GI and DVT prophylaxis 6. Medical recommendations 7. Discharge planning: Patient will likely discharged home when stable Time with Patient: Less than 30
--- NOTE | 2016-12-30 14:28 | P.PN ---
Subjective 65-year-old female with past medical history of hypertension, hyperlipidemia hypothyroidism and Raynaud's who had left total knee arthroplasty long time ago and has done very well with it. Patient had developed severe increased arthritis of the right knee for the last 2 years become much worse the last few month had affected her ability to ambulate be active and be able to enjoy life. Patient was seen Dr. Caraballo with her failure to conservative management patient was scheduled for elective right total knee arthroplasty which was done today successfully with no major complication. Patient was admitted to the surgical floor afterward has been watch and monitor hemodynamically pain is under control so far patient is doing well. Pain is well managed through the night, SUPERVISOR BEET END was stopped, fully catheter was removed and patient was start ambulating today with PT. 12/25: Patient is being prepared for discharge home today. Xarelto samples will be available for patient to pepper picker at Dr. Ledesma's office. Medication reconciliation completed. Objective - Vital Signs Vital signs: Vital Signs Temp 98.1 F 12/25/16 07:00 Pulse 82 12/25/16 07:00 Resp 16 12/25/16 07:00 BP 126/72 12/25/16 07:00 Pulse Ox 93 L 12/25/16 07:00 Intake & Output 12/24/16 12/25/16 12/25/16 18:59 06:59 18:59 Intake Total 1500 240 Output Total 1900 Balance -400 240 Intake: Oral 1500 240 Output: Urine 1900 Uretheral (Sandra) 1900 Other: Voiding Method Indwelling Catheter Toilet Toilet # Voids 1 1 1 - Exam General appearance: Present: cooperative, no acute distress. Absent: average body habitus, disheveled, mild distress, morbidly obese, obese, severe distress , thin - EENT Eyes: Present: normal appearance. Absent: abnormal pupil, anicteric sclerae, disc margins sharp, edentulous, EOMI, PERRLA, fundus normal, photophobia, dentition normal, poor dentition, ptosis, scleral icterus ENT: Present: hard of hearing, normal oropharynx. Absent: hearing grossly normal, NA/AT, other, pharyngeal erythema, thrush, tonsillar exudates, tonsillar swelling Ears: bilateral: normal - Neck Neck: Present: normal ROM. Absent: lymphadenopathy, other, rigidity, stridor, thyromegaly Carotids: bilateral: upstroke normal Thyroid: bilateral: normal size - Respiratory Respiratory: bilateral: CTA, diminished - Cardiovascular Rhythm: regular Heart sounds: normal: S1, S2 Abnormal Heart Sounds: Present: systolic murmur - Gastrointestinal General gastrointestinal: Present: decreased bowel sounds, normal bowel sounds, soft. Absent: absent bowel sounds, distended, hepatomegaly, hyperactive bowel sounds, organomegaly, rigid, scaphoid, splenomegaly, tenderness, umbilical hernia, ventral hernia - Integumentary Integumentary Comment(s): Right knee incision looks fine with no induration hematoma or bleeding no calf tenderness and no swelling in the legs. Integumentary: Present: normal, pale, rash. Absent: calor, cellulitis, cyanotic , decreased turgor, flushed, jaundiced, normal turgor, ulcer - Neurologic Neurologic: Present: CNII-XII intact - Musculoskeletal Musculoskeletal: Present: gait normal, generalized weakness, strength equal bilaterally. Absent: right sided weakness, left sided weakness - Psychiatric Psychiatric: Present: A&O x's 3, appropriate affect. Absent: intact judgment & insight - Labs CBC & Chem 7: 12/25/16 06:35 12/25/16 06:35 Labs: Abnormal Lab Results - Last 24 Hours (Table) 12/25/16 12/25/16 Range/Units 06:35 06:35 RBC 3.59 L (3.80-5.40) m/uL Glucose 100 H (74-99) mg/dL Total Protein 5.7 L (6.3-8.2) g/dL Albumin 3.3 L (3.5-5.0) g/dL Assessment and Plan Plan: 1 post right total knee arthroplasty: Stable resume home meds, watch patient hemodynamic status, GI, DVT, pulmonary prophylaxis protocol will be use. 2 hypertension: Has been well controlled on nifedipine and lisinopril continue both medication. 3 hyperlipidemia: Has been on Zocor 40 mg daily. 4 severe GERD: Has been on omeprazole 40 mg twice a day continue medication. 5 depression: Has been on Cymbalta 60 mg daily. 6 DVT prophylaxis: Patient was started on Xarelto 10 mg daily for the next 4 weeks. 7 pain management: Patient has a block currently and was started on hydrocodone orally as needed. Off IV pain meds and tolerating medication well. CODE STATUS: Full code. Discharge plan: Return home with [facility] Impression and plan of care have been directed as dictated by the signing physician. Elly Davis nurse practitioner acting as scribe for signing physician. Time with Patient: Greater than 30
== END 2016-12-25 13:30 | disposition home health service (06) | DRG 470 ==
LOC: 2ORMAIN 11:29 → 3SUR 16:12
PROVIDERS: ADMIT Orthopaedic Surgery; ATTEND Orthopaedic Surgery
PROC: 0JH Subcutaneous Tissue and Fascia, Insertion (ICD-10-PCS; 2016-12-23)
PROC: 3E0T3BZ Introduction of Anesthetic Agent into Peripheral Nerves and Plexi, Percutaneous Approach (ICD-10-PCS; 2016-12-23)
PROC: 0SRC0J9 Replacement of Right Knee Joint with Synthetic Substitute, Cemented, Open Approach (ICD-10-PCS; principal; 2016-12-23 13:20)
DX: M17.11 Unilateral primary osteoarthritis, right knee (principal); I10 Essential (primary) hypertension; E03.9 Hypothyroidism, unspecified; E78.5 Hyperlipidemia, unspecified; G89.18 Other acute postprocedural pain; I73.00 Raynaud's syndrome without gangrene; M21.169 Varus deformity, not elsewhere classified, unspecified knee; F32.9 Major depressive disorder, single episode, unspecified; I83.90 Asymptomatic varicose veins of unspecified lower extremity; K21.9 Gastro-esophageal reflux disease without esophagitis; Z79.82 Long term (current) use of aspirin; Z79.899 Other long term (current) drug therapy; Z96.652 Presence of left artificial knee joint; Z82.49 Family history of ischemic heart disease and other diseases of the circulatory system
CPT/HCPCS: 80053; 85025; 88300; 94760

== ENCOUNTER → 2017-03-25 | Outpatient (CLI) | payer MEDICARE ==
--- NOTE | 2017-03-25 16:42 | WWHP ---
CHIEF COMPLAINT: Patient is here for her routine gynecologic exam and mammogram. HPI: This is a 66-year-old G1, P0-0-1-0 with an LMP of 2002. The patient is without gynecologic complaints. She is status post FRANKO/BSO in 2002 for benign reasons. PAST MEDICAL HISTORY: Chronic hypertension, elevated cholesterol, depression, arthritis, osteopenia, gastroesophageal reflux disease and Raynaud syndrome. MEDICATIONS: 1. Lisinopril 10 mg daily. 2. Procardia ER 60 mg daily. 3. Simvastatin 40 mg daily. 4. Mobic 7.5 mg b.i.d. 5. Omeprazole 40 mg b.i.d. 6. Duloxetine 60 mg daily. 7. Lomotil p.r.n. 8. Aleve p.r.n. 9. Vitamin D3, 1000 units b.i.d. 10. Aspirin 81 mg daily. ALLERGIES: No known drug allergies. PAST SURGICAL HISTORY: Left knee replacement surgery in the past, right knee replacement surgery 2016, FRANKO/BSO in 2002, colonoscopy 2011, cholecystectomy, heel spur surgery, D&C and tonsillectomy in the past. 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 SOCIAL HISTORY: She denies tobacco and drug use and has 0 to 1 alcoholic drink per month. She is a retired, but enjoys gardening and walking her dogs. She is not seeing anybody at this time and is not sexually active. REVIEW OF SYSTEMS: She has lost about 33 pounds over the last year. This was after gaining about 40 pounds from the years prior to the last year. She denies respiratory, cardiac or GI problems. She denies maltreatment or falling. : She denies any significant problems with urinary leakage. PHYSICAL EXAM: Blood pressure 118/66. Height 5 feet 1-1/2 inches. Weight 163 pounds. Temperature 96.4, pulse 91. This is a well-developed, well-nourished white female who is alert and oriented x3, in no acute distress. HEENT is within normal limits. NECK: Supple without mass or thyromegaly. CHEST AND LUNGS: Clear to auscultation. HEART: Regular rate and rhythm. Breasts are without mass or discharge. Axillary is negative for adenopathy. BACK: Negative for CVA tenderness. ABDOMEN: Soft, nontender, without palpable masses. PELVIC: External genitalia reveal moderate atrophy without lesions. Vagina reveals moderate atrophy without lesions. There is no evidence of prolapse. Bimanual is negative for mass or tenderness. Rectovaginal is negative for mass or tenderness and is negative for occult blood. EXTREMITIES: Nontender. IMPRESSION: 1. A 66-year-old menopausal female, status post total abdominal hysterectomy/bilateral salpingo-oophorectomy for benign reasons with normal gynecologic exam. 2. History of osteopenia. PLAN: 1. Pap smears have been discontinued. 2. Self-breast examination was discussed. 3. Mammogram will be done today. 4. Osteoporosis prevention was discussed. Will plan on repeating bone density test in 1 year. 5. She does get flu shots in the fall. 6. She will return in 1 year.
--- NOTE | 2017-03-27 08:29 | MM ---
Reason for exam: screening (asymptomatic). Last mammogram was performed 1 year and 5 months ago. History: Patient is postmenopausal and is nulliparous. Family history of breast cancer in grandmother at age 50. Took hormonal contraceptives for 15 years beginning at age 18. Physical Findings: A clinical breast exam by your physician is recommended on an annual basis and results should be correlated with mammographic findings. MG 3D Screening Mammo W/Cad Bilateral CC and MLO view(s) were taken. Prior study comparison: October 26, 2015, bilateral MG 3d screening mammo w/cad. October 16, 2014, bilateral MG screening mammo w CAD. February 03, 2013, bilateral digital screening mammo w/CAD. There are scattered fibroglandular densities. No significant changes when compared with prior studies. ASSESSMENT: Negative, BI-RAD 1 RECOMMENDATION: Routine screening mammogram of both breasts in 1 year.
== END | disposition home or self-care (01) ==
LOC: WWCWWP 09:54
PROVIDERS: ATTEND Obstetrics & Gynecology
DX: Z12.31 Encounter for screening mammogram for malignant neoplasm of breast (principal)
CPT/HCPCS: 77063; G0202

== ENCOUNTER → 2017-12-14 | Outpatient (CLI) | payer MEDICARE ==
--- NOTE | 2017-12-14 13:49 | CT ---
EXAMINATION TYPE: CT brain wo con DATE OF EXAM: 12/14/2017 COMPARISON: NONE HISTORY: syncope, bruising to Lt eye CT DLP: [address] of the brain was performed. The ventricles, basal cisterns and sulci overlying the cerebral convexities demonstrate mild enlargem ent. There is no evidence for intracranial hemorrhage or sulcal effacement. There is decreased attenuation about the periventricular white matter and deep white matter of both c erebral hemispheres, compatible with chronic small vessel ischemia. Differential diagnosis does inclu de demyelination. No mass effects are seen.No midline shift. Osseous calvarium is intact. If symptoms persist consider MRI. IMPRESSION: 1. Age related atrophic and chronic small vessel ischemic change without acute intracranial process s een at this time.
== END | disposition home or self-care (01) ==
LOC: RADCTMAIN 13:02
PROVIDERS: ATTEND Internal Medicine Geriatric Medicine
DX: G31.9 Degenerative disease of nervous system, unspecified (principal); I67.82 Cerebral ischemia
CPT/HCPCS: 70450

== ENCOUNTER → 2017-12-15 | Outpatient (CLI) | payer MEDICARE ==
--- NOTE | 2017-12-15 08:06 | US ---
EXAMINATION TYPE: US carotid duplex BILAT DATE OF EXAM: 12/15/2017 COMPARISON: NONE CLINICAL HISTORY: R55 Syncope and Collapse. EXAM MEASUREMENTS: RIGHT: Peak Systolic Velocity (PSV) cm/sec ----- Right CCA: 93.0 ----- Right ICA: 95.2 ----- Right ECA: 95.2 ICA/CCA ratio: 1.0 RIGHT: End Diastole cm/sec ----- Right CCA: 27.0 ----- Right ICA: 25.9 ----- Right ECA: 18.2 LEFT: Peak Systolic Velocity (PSV) cm/sec ----- Left CCA: 95.2 ----- Left ICA: 91.9 ----- Left ECA: 72.1 ICA/CCA ratio: 1.0 LEFT: End Diastole cm/sec ----- Left CCA: 20.4 ----- Left ICA: 34.7 ----- Left ECA: 16.0 VERTEBRALS (direction of flow): Right Vertebral: Antegrade Left Vertebral: Antegrade Rhythm: Normal IMPRESSION: No significant stenosis seen, no elevated velocities, mild bilateral plaque. Criteria for Assigning % of Stenosis / Diameter reduction (Estimation based on the indirect measurements of the internal carotid artery velocities (ICA PSV). 1. Normal (no stenosis)=ICA PSV < 125 cm/s: ratio < 2.0: ICA EDV<40 cm/s. 2. Less than 50% stenosis=ICA PSV < 125 cm/s: ratio < 2.0: ICA EDV<40 cm/s. 3. 50 to 69% stenosis=ICA PSV of 125 to 230 cm/s: ration 2.0 ? 4.0: ICA EDV 40-100 cm/s. 4. Greater than 70% stenosis to near occlusion= ICA PSV > 230 cm/s: ratio > 4.0: ICA EDV > 100 cm/s. 5. Near occlusion= ICA PSV velocities may be low or undetectable: variable ratio and ICA EDV. 6. Total occlusion=unable to detect flow.
== END | disposition home or self-care (01) ==
LOC: RADUSWWP 07:35
PROVIDERS: ATTEND Internal Medicine Geriatric Medicine
DX: I65.23 Occlusion and stenosis of bilateral carotid arteries (principal)
CPT/HCPCS: 93880

== ENCOUNTER → 2017-12-23 | Outpatient (CLI) | payer MEDICARE ==
--- NOTE | 2017-12-23 16:33 | XR ---
Facial bones HISTORY: Pain, contusion 3 views of the facial bones Bone mineralization is maintained. No displaced fracture is evident. No abnormal fluid collection in the paranasal sinuses to suggest acute hemorrhage. Orbits thought to be intact. Patient is rotated ho wever. IMPRESSION: No displaced fracture is evident, correlate for point tenderness, consider CT scan for in creased sensitivity as indicated.
== END | disposition home or self-care (01) ==
LOC: RADXRMAIN 13:42
PROVIDERS: ATTEND Internal Medicine Geriatric Medicine
DX: R51 Headache (principal)
CPT/HCPCS: 70150

== ENCOUNTER → 2018-03-30 | Outpatient (CLI) | payer MEDICARE ==
[2018-03-30 11:42] VITALS: BP 114/75; PULSE 80; RESP 16; TEMP 98.2; BMI 31.4
--- NOTE | 2018-03-30 12:37 | P.HPOB ---
History of Present Illness H&P Date: 03/30/18 Chief Complaint: The patient is here for her routine gynecologic exam and mammogram. This is a 67-year-old with an LMP of 2002. She is status post FRANKO BSO for benign reasons. She has been experiencing intermittent low abdominal and pelvic pains for about 6 months. She states they do not seem to be related to any one particular activity. She describes it as a pressure occasionally makes her stop what she is doing and she is doubled over. The discomfort usually stops after a while when she stops what she is doing. She rates the pain at 3 out of 10 at this time. The pain can get up to an 8 out of 10. She also has occasional right flank discomfort that can be associated with the pain. She has been having normal bowel movements. She denies any dysuria or urinary urgency. She denies any prolapse from the vaginal opening. Review of Systems She has gained about 3 pounds over the last year. She denies respiratory, cardiac, or G.I. problems. She denies maltreatment. She did fall in December 2017. She has been undergoing a workup for this including a cardiac workup. : she denies any significant problems with urinary leakage. Past Medical History Past Medical History: Chest Pain / Angina, GERD/Reflux, Hyperlipidemia, Hypertension, Osteoarthritis (OA), Thyroid Disorder Additional Past Medical History / Comment(s): Raynauds, varicose veins, hx frequent UTI's, arthritis and osteopenia. 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 She just did have a FRANKO BSO for endometriosis and abnormal bleeding. History of Any Multi-Drug Resistant Organisms: None Reported Past Surgical History: Cholecystectomy, Heart Catheterization, Hysterectomy ( FRANKO BSO in 2002), Joint Replacement, Orthopedic Surgery, Tonsillectomy Additional Past Surgical History / Comment(s): left knee replacement, surgery hammertoes darrell feet, heel spur rt foot, wrist right tendonitis surgery, D&C. Colonoscopy 2011. Past Anesthesia/Blood Transfusion Reactions: Family History of Problems w/ Anesthesia Additional Past Anesthesia/Blood Transfusion Reaction / Comment(s): sister-pt not sure of what problems(will try to find out prior to surgery) Past Psychological History: Depression Smoking Status: Never smoker Past Alcohol Use History: Rare (1 to 2 per year) Past Drug Use History: None Reported Additional History: She is single and is not sexually active. She is retired. - Past Family History Mother Family Medical History: Congestive Heart Failure (CHF) Father Family Medical History: Congestive Heart Failure (CHF), Myocardial Infarction ( [place]) Medications and Allergies Home Medications Medication Instructions Recorded Confirmed Type Acetaminophen [Tylenol] 500 mg PO Q4H PRN 12/18/16 12/23/16 History Aspirin [Adult Low Dose Aspirin EC] 81 mg PO DAILY 12/18/16 12/23/16 History Cholecalciferol [Vitamin D3] 1,000 unit PO BID 12/18/16 12/23/16 History DULoxetine HCL [Cymbalta] 60 mg PO HS 12/18/16 12/23/16 History Lisinopril [Zestril] 10 mg PO DAILY 12/18/16 12/23/16 History Multivitamins, Thera [Multivitamin] 1 tab PO DAILY 12/18/16 12/23/16 History NIFEdipine [NIFEdipine ER] 60 mg PO DAILY 12/18/16 12/23/16 History Naproxen Sodium [Aleve] 220 mg PO Q12HR 12/18/16 12/23/16 History Omeprazole 40 mg PO BID 12/18/16 03/30/18 History Simvastatin [Zocor] 40 mg PO HS 12/18/16 03/30/18 History diphenhydrAMINE HCL [Benadryl] 25 mg PO Q4H PRN 12/18/16 12/23/16 History Rivaroxaban [Xarelto] 10 mg PO DAILY #12 tab 12/23/16 Rx Baclofen [Lioresal] 5 mg PO BID PRN #20 tablet 12/25/16 Rx Docusate [Colace] 100 mg PO DAILY #20 capsule 12/25/16 Rx Hydrocodone/Acetaminophen [[place] 1 - 2 each PO Q6HR PRN #60 tab 12/25/16 Rx 5-325] traMADol HCl [Ultram] 50 mg PO Q6H PRN #40 tab 12/25/16 Rx Aspirin [Adult Low Dose Aspirin EC] 80 mg PO DAILY 03/30/18 03/30/18 History DULoxetine HCL [Cymbalta] 60 mg PO DAILY 03/30/18 03/30/18 History Ergocalciferol (Vitamin D2) 1,000 unit PO 03/30/18 History [Vitamin D2] Lisinopril [Zestril] 03/30/18 History Lisinopril [Zestril] 10 mg PO DAILY 03/30/18 03/30/18 History Multivitamin [Men's Multi-Vitamin] PO DAILY 03/30/18 History Naproxen Sodium [Aleve] 220 mg PO DAILY 03/30/18 03/30/18 History Allergies Allergy/AdvReac Type Severity Reaction Status Date / Time No Known Allergies Allergy Verified 12/23/16 17:10 Exam - Vital Signs Vital signs: Vital Signs Temp Pulse Resp BP 03/30/18 11:29 98.2 F 80 16 114/75 Intake and Output 03/29/18 03/30/18 03/30/18 22:59 06:59 14:59 Other: Weight 75.296 kg Height 5'1", BMI 31.4. This is a well-developed well-nourished white female who is alert and oriented times 3 in no acute distress. HEENT: Within normal limits. NECK: Supple without mass or thyromegaly. CHEST AND LUNGS: Clear to auscultation. HEART: Regular rate and rhythm. BREASTS: Are without mass or discharge. AXILLARY EXAM: Negative for adenopathy. BACK: Negative for CVA tenderness. ABDOMEN: Soft, with mild bilateral low abdominal tenderness without rebound tenderness, and without palpable masses. PELVIC EXAM: External genitalia appears normal with mild to moderate atrophy. Vagina appears normal of mild to moderate atrophy. There is no evidence of prolapse. Bimanual examination is negative for mass but there is mild generalized pelvic tenderness is greatest on the left side. RECTAL EXAM: Rectovaginal exam is negative for mass or tenderness and is negative for occult blood. EXTREMITIES: Nontender. IMPRESSION: 1. 67-year-old menopausal female who status post FRANKO BSO for benign reasons. 2. 6 month history of intermittent low abdominal and pelvic pains with mild low abdominal and pelvic tenderness greatest on the left side. There are no palpable masses. At this time I doubt gynecologic pain. Differential diagnosis will include ovarian remnant cyst, pelvic adhesions, G.I. discomfort, hernia and other non-gynecologic pain. At this time I do not see evidence of pelvic organ prolapse. 3. History of osteopenia. PLAN: 1. Pap smears have been discontinued. 2. Self breast awareness was discussed. 3. The patient will be scheduled for pelvic ultrasound. 4. Screening mammogram will be done today. 5. Osteoporosis prevention was discussed. Bone density testing will be done today. 6. Clean catch urinalysis and culture with sensitivity has been obtained. 7. She does get flu shots in the fall. 8. She will return in one year and PRN.
[2018-03-30 14:46] LABS: Appearance,Urine Clear (Clear); Bilirubin,Urine Negative (Negative); Blood,Urine Negative (Negative); Color,Urine Light Yellow; Glucose,Urine (UA) Negative (Negative); Ketones,Urine Negative (Negative); Leukocyte Esterase,Urine Negative (Negative); Nitrite,Urine Negative (Negative); PH, Urine 7.5 (5.0-8.0); Protein,Urine Negative (Negative); Specific Gravity,Urine 1.005 (1.001-1.035); Urobilinogen,Urine <2.0 mg/dL (<2.0)
--- NOTE | 2018-03-30 14:56 | BD ---
EXAMINATION TYPE: Axial Bone Density DATE OF EXAM: 03/30/2018 COMPARISON: NONE CLINICAL HISTORY: Height: 5 FT Weight: 163 FRAX RISK QUESTIONS: History of Fracture in Adulthood: YES Secondary Osteoporosis: Rheumatoid Arthritis: YES RISK FACTORS HISTORY OF: Surgery to Spine/Hip(right/left)/Wrist (right/left): RT WRIST When: 1968 Family History of Osteoporosis: YES Active: YES Postmenopausal woman: AGE 52 MEDICATIONS: Additional Medications: LISINOPRIL.SIMVASTATIN, OMEPRAZOLE,DULOXETINE,VIT D, LOMOTIL Additional History: EXAM MEASUREMENTS: Bone mineral densitometry was performed using the [employer] System. Bone mineral density as measured about the Lumbar spine is: ----- L1-L4(G/cm2): 1.506 T Score Values are as follows: ----- L2: 2.4 ----- L3: 1.6 ----- L4: 4.0 ----- L1-L4: 2.7 Bone mineral density has: DECREASED -5.8 % since study of: 2015 Bone mineral density about the R hip (g/cm2): 0.756 Bone mineral density about the L hip (g/cm2): 0.947 T Score values are as follows: -----R Neck: -2.0 -----L Neck: -0.7 -----R Total: -1.8 -----L Total: -0.5 Bone mineral density has: DECREASED -4.1 % since study of: 2015 IMPRESSION: Osteopenia (T Score between -2.5 and -1). There is slightly increased risk of fracture and the patient may be considered for treatment. Re-Screen 2-5 years. NOTE: T-SCORE=SD OF THE YOUNG ADULT MEAN.
--- NOTE | 2018-03-31 11:26 | MM ---
Reason for exam: screening (asymptomatic). Last mammogram was performed 1 year ago. History: Patient is postmenopausal and is nulliparous. Family history of breast cancer in grandmother at age 50. Took hormonal contraceptives for 15 years beginning at age 18. Physical Findings: A clinical breast exam by your physician is recommended on an annual basis and results should be correlated with mammographic findings. MG 3D Screening Mammo W/Cad Bilateral CC and MLO view(s) were taken. Prior study comparison: March 25, 2017, bilateral MG 3d screening mammo w/cad. October 26, 2015, bilateral MG 3d screening mammo w/cad. The breast tissue is heterogeneously dense. This may lower the sensitivity of mammography. Focal asymmetry upper outer left breast is stable. No significant changes when compared with prior studies. ASSESSMENT: Benign, BI-RAD 2 RECOMMENDATION: Routine screening mammogram of both breasts in 1 year.
--- NOTE | 2018-03-31 14:25 | P.PN ---
Progress Note - Text Progress Note Date: 03/31/18 OUTPATIENT FOLLOW-UP NOTE TEST(S)/RESULTS: negative urinalysis and bone density showing osteopenia 2017. METHOD OF NOTIFICATION: the patient was notified of the above results by phone. PATIENT COMMENTS: patient has made an appointment for a pelvic ultrasound DIAGNOSIS: osteopenia DISCUSSION: PLAN: await urine culture. Pelvic ultrasound in the near future.
== END | disposition home or self-care (01) ==
LOC: WWCWWP 11:19
PROVIDERS: ATTEND Obstetrics & Gynecology
DX: Z12.31 Encounter for screening mammogram for malignant neoplasm of breast (principal); M85.80 Other specified disorders of bone density and structure, unspecified site; R10.2 Pelvic and perineal pain; Z78.0 Asymptomatic menopausal state
CPT/HCPCS: 77063; 77067; 77080; 81003; 87086

== ENCOUNTER → 2018-04-07 | Outpatient (CLI) | payer MEDICARE ==
--- NOTE | 2018-04-07 15:31 | US ---
EXAMINATION TYPE: US pelvic complete DATE OF EXAM: 04/07/2018 COMPARISON: NONE CLINICAL HISTORY: R10.32 LLQ Pin,R10.2 Pelvic Pain. TECHNIQUE: . Transabdominal sonographic images of the pelvis were acquired. Date of LMP: 15 years ago EXAM MEASUREMENTS: Uterus: Surgically absent Endometrial Stripe: Surgically absent Right Ovary: Surgically absent Left Ovary: Surgically absent Urinary bladder is sonolucent. Posterior wall is normal. 1. Uterus: Surgically absent 2. Endometrium: Surgically absent 3. Right Ovary: Surgically absent 4. Left Ovary: Surgically absent 5. Bilateral Adnexa: wnl 6. Posterior cul-de-sac: wnl No abnormalities visualized at the patient's area of pain in the LLQ. IMPRESSION: 1. Normal post hysterectomy pelvic ultrasound.
== END | disposition home or self-care (01) ==
LOC: RADUSWWP 13:58
PROVIDERS: ATTEND Obstetrics & Gynecology
DX: R10.2 Pelvic and perineal pain (principal); Z90.710 Acquired absence of both cervix and uterus; R10.32 Left lower quadrant pain
CPT/HCPCS: 76856

== ENCOUNTER 2018-06-01 11:47 | Day surgery (SDC) | payer MEDICARE ==
[~2018-06-01 11:47] MED LIST changes: -ACETAMINOPHEN TAB 500 MG TAB PO ONE; -DEXAMETHASONE SOD PHOSPHATE 10 MG/ML 1 ML VIAL IV ONE; -HYDROmorphone 1 MG/ML 1 ML SYRINGE IVP PRN; -LACTATED RINGERS 1,000 ML IV SCH; -MELOXICAM 7.5 MG TAB PO ONE; -MIDAZOLAM 2 MG/2 ML VIAL IV PRN; -ONDANSETRON 4 MG/2 ML VIAL IVP ONE; +SODIUM CHLORIDE 0.9% 1,000 ML IV SCH; -TRANEXAMIC ACID 1,000 MG in SODIUM CHLORIDE 0.9% 100 ML IVPB ONE; +ceFAZolin 1,000 MG in SODIUM CHLORIDE 0.9% IRRIGATIO 250 ML IRRIGATION ONE; -ceFAZolin 2 GM in SODIUM CHLORIDE 0.9% 100 ML IVPB ONE; +ceFAZolin IN SWFI 2 GM/20 ML SYRINGE IVP ONE
[2018-06-01 12:09] VITALS: RESP 20; TEMP 98.2
[2018-06-01] MEDS ORDERED: IV FLUID CONTINUATION 1,000 ML IV ONE ×2 (13:03→14:17)
[2018-06-01] MEDS ORDERED: MIDAZOLAM 2 MG/2 ML VIAL ONE (14:17)
[2018-06-01] MEDS ORDERED: MIDAZOLAM 2 MG/2 ML VIAL IV ONE (14:23)
[2018-06-01 14:24] VITALS: PULSE 74
[2018-06-01] MEDS ORDERED: LIDOCAINE 1% INJ 10MG/ML (20 ML MDV) ONE (14:26)
--- NOTE | 2018-06-01 14:48 | P.PCN ---
Preoperative Diagnosis: Indication for the procedure: Recurrent dizzy spells be syncope and syncope despite stopping nifedipine and reducing the dose of lisinopril Twelve-lead ECG Sinus mechanism normal PA narrow QRS normal ST segments, no delta waves no epsilon waves no ST segment abnormalities in the precordial leads normal QT interval Tilt table test Baseline blood pressure 130/72 mmHg Baseline heart rate 66 beats a minute Patient was tilted upright at an angle of 70 per protocol. A 17 mm drop in systolic blood pressure patient felt dizzy. Heart rate increased to 79 beats a minute but remained in the low 80s with blood pressures between 110-120 mmHg the most part. No symptoms thereafter When she was laid supine blood pressure again increased to 133/72 mmHg in the heart rate dropped mildly to 66 bpm. She felt lightheaded momentarily with change in body position back to the supine position Impression Mild orthostatic hypotension with dizziness No evidence for neurocardiogenic syncope
--- NOTE | 2018-06-01 14:49 | P.PCN ---
Preoperative Diagnosis: Loop monitor implant Primary physicians: Dr. Ledesma Chief Of Service: Dr. Solano Indication: Recurrent presyncope and syncope despite medication adjustment Patient was brought to the EP lab in a fasting state. Written informed consent was obtained prior to the procedure. The left pectoral area was prepped and draped per protocol. Intravenous antibiotic was administered preoperatively. A subcutaneous Loop monitor was implanted successfully and the wound was closed per protocol. The device was programmed to detect significant aleksandar- arrhythmic and tachy-arrhythmic events, per protocol. Device and programming details: See syncope protocol Patient underwent EP procedure under conscious sedation/moderate sedation, monitoring of the level of consciousness and physiologic parameters including but not limited to vital signs and oxygenation. Patient tolerated the procedure well without any acute complications. Start time: 1425 Stop time: 1436
--- NOTE | 2018-06-01 14:52 | P.PCN ---
Preoperative Diagnosis: Dear Reginaldphilomena Mclaughlin continues to have episodes of presyncope and syncope. The twelve -lead ECG is normal Her tilt table test showed mild orthostatic hypotension with dizziness but there was no evidence for progressive drop in blood pressure with continued standing. There was no evidence for neurocardiogenic syncopal he either She underwent implantation of a loop monitor to look for any tachycardia or bradycardia arrhythmias that could be precipitating events despite discontinuation of nifedipine and reduction in the dose of lisinopril Thank you for entrusting me with the care of the patient Sincerely Efrain Perrin
[2018-06-01 16:46] VITALS: BP 119/71
== END 2018-06-01 15:55 | disposition home or self-care (01) ==
LOC: CATHEP 11:47
PROVIDERS: ATTEND Internal Medicine Clinical Cardiac Electrophysiology
DX: I95.1 Orthostatic hypotension (principal); Z79.899 Other long term (current) drug therapy; I10 Essential (primary) hypertension; E78.5 Hyperlipidemia, unspecified; Z82.49 Family history of ischemic heart disease and other diseases of the circulatory system; I73.00 Raynaud's syndrome without gangrene; Z87.891 Personal history of nicotine dependence; Z95.1 Presence of aortocoronary bypass graft; I25.5 Ischemic cardiomyopathy; Z79.01 Long term (current) use of anticoagulants; Z79.4 Long term (current) use of insulin
CPT/HCPCS: 33282; 93660; C1764; J2250; J0690

== ENCOUNTER → 2019-01-04 | Outpatient (CLI) | payer MEDICARE ==
[2019-01-04 17:05] LABS: Basophils % (A) 1 %; Eosinophils # (A) 0.1 k/uL (0-0.7); Eosinophils % (A) 3 %; HCT 37.1 % (34.0-46.0); HGB 11.6 gm/dL (11.4-16.0); Lymphocytes # (A) 1.1 k/uL (1.0-4.8); Lymphocytes % (A) 24 %; MCH 28.1 pg (25.0-35.0); MCHC 31.4 g/dL (31.0-37.0); MCV 89.6 fL (80.0-100.0); Mean Platelet Volume 7.1; Monocytes # (A) 0.3 k/uL (0-1.0); Monocytes % (A) 8 %; Neutrophils # (A) 2.7 k/uL (1.3-7.7); Neutrophils % (A) 61 %; Platelet Count 234 k/uL (150-450); RBC 4.15 m/uL (3.80-5.40); WBC 4.4 k/uL (3.8-10.6)
== END ==
LOC: LABWHC1 16:02
PROVIDERS: ATTEND Nurse Practitioner Family
DX: D64.9 Anemia, unspecified (principal)
CPT/HCPCS: 36415; 85025

== ENCOUNTER → 2019-02-24 | Outpatient (CLI) | payer MEDICARE ==
[2019-02-24 17:50] LABS: Basophils % (A) 1 %; Eosinophils # (A) 0.2 k/uL (0-0.7); Eosinophils % (A) 4 %; HCT 36.5 % (34.0-46.0); HGB 11.5 gm/dL (11.4-16.0); Hypochromasia Slight; Lymphocytes # (A) 1.7 k/uL (1.0-4.8); Lymphocytes % (A) 37 %; MCH 27.8 pg (25.0-35.0); MCHC 31.7 g/dL (31.0-37.0); MCV 87.8 fL (80.0-100.0); Mean Platelet Volume 7.1; Monocytes # (A) 0.3 k/uL (0-1.0); Monocytes % (A) 7 %; Neutrophils # (A) 2.2 k/uL (1.3-7.7); Neutrophils % (A) 48 %; Platelet Count 279 k/uL (150-450); RBC 4.15 m/uL (3.80-5.40); RDW 13.9 % (11.5-15.5); WBC 4.6 k/uL (3.8-10.6)
[2019-02-25 01:34] LABS: Folate, Serum 20.8 ng/mL; Iron Saturation 4.74 (12.00-45.00)
== END | disposition home or self-care (01) ==
LOC: LABWHC1 17:27
PROVIDERS: ATTEND Internal Medicine Geriatric Medicine
DX: D64.9 Anemia, unspecified (principal)
CPT/HCPCS: 36415; 82607; 82728; 82746; 83540; 83550; 85025

== ENCOUNTER → 2019-04-20 | Outpatient (CLI) | payer MEDICARE ==
[2019-04-20 11:51] LABS: Basophils % (A) 1 %; Eosinophils # (A) 0.2 k/uL (0-0.7); Eosinophils % (A) 6 %; HCT 42.4 % (34.0-46.0); HGB 13.6 gm/dL (11.4-16.0); Lymphocytes # (A) 0.9 k/uL (1.0-4.8); Lymphocytes % (A) 23 %; MCH 29.5 pg (25.0-35.0); MCV 92.2 fL (80.0-100.0); Mean Platelet Volume 6.8; Monocytes # (A) 0.3 k/uL (0-1.0); Monocytes % (A) 8 %; Neutrophils # (A) 2.4 k/uL (1.3-7.7); Neutrophils % (A) 59 %; Platelet Count 245 k/uL (150-450); RDW 15.2 % (11.5-15.5); WBC 4.1 k/uL (3.8-10.6)
[2019-04-21 06:03] LABS: EBV - EA (IgG) 76.1 U/mL (<9.0); Toxoplasma Antibody (IgG) <3.0 IU/mL (<7.2); Toxoplasma Antibody (IgM) <3.0 AU/mL (<8.0)
[2019-04-21 10:06] LABS: Parvovirus B-19 IgM Antibodies 0.15 INDEX (<=0.90)
[2019-04-21 10:07] LABS: Parvovirus B-19 IgG Antibodies 3.76 INDEX (<=0.90)
[2019-04-21 16:01] LABS: Lyme IgG/IgM 0.07 Index
== END ==
LOC: LABWHC1 10:12
PROVIDERS: ATTEND Internal Medicine Geriatric Medicine
DX: D72.819 Decreased white blood cell count, unspecified (principal); R53.82 Chronic fatigue, unspecified
CPT/HCPCS: 36415; 85025; 86618; 86644; 86645; 86663; 86664; 86665; 86747; 86777; 86778

== ENCOUNTER → 2019-06-22 | Outpatient (CLI) | payer MEDICARE ==
[2019-06-22 11:44] VITALS: BP 122/76; PULSE 84; RESP 18; TEMP 98.5
--- NOTE | 2019-06-22 12:23 | P.HPOB ---
History of Present Illness H&P Date: 06/22/19 Chief Complaint: The patient is here for her routine gynecologic exam and ma mmogram. This is a 68-year-old with an LMP of 2002. She is status post FRANKO BSO for benign reasons. The patient is without gynecologic complaints. Review of Systems Weight has been stable. She denies respiratory, cardiac and G.I. problems. She denies maltreatment. She did fall in 2018 and underwent a workup for this at that time. : she denies any significant problems with urinary leakage. Past Medical History Past Medical History: GERD/Reflux, Hyperlipidemia, Osteoarthritis (OA) Additional Past Medical History / Comment(s): Raynauds, varicose veins, hx frequent UTI's, osteopenia. Past [place] history: she has no history of STDs. [facility] BSO was done for endometriosis and abnormal bleeding. History of Any Multi-Drug Resistant Organisms: None Reported Past Surgical History: Cholecystectomy, Heart Catheterization, Hysterectomy, Joint Replacement, Orthopedic Surgery, Tonsillectomy Additional Past Surgical History / Comment(s): D&C, Jonel knee replacements, jonel knee arthroscopy, jonel carpal tunnel, rt foot heel spur. FRANKO BSO in 2002. Colonoscopy 2011. Past Anesthesia/Blood Transfusion Reactions: Family History of Problems w/ Anesthesia Additional Past Anesthesia/Blood Transfusion Reaction / Comment(s): sister-pt not sure of what problems Past Psychological History: Depression Smoking Status: Never smoker Past Alcohol Use History: Rare Past Drug Use History: None Reported Additional History: She is single and is not sexually active. She is retired. - Past Family History Mother Family Medical History: No Reported History Father Family Medical History: Congestive Heart Failure (CHF), Myocardial Infarction ([place]) Medications and Allergies Home Medications Medication Instructions Recorded Confirmed Type Acetaminophen [Tylenol] 500 mg PO Q4H PRN 12/18/16 06/22/19 History Cholecalciferol [Vitamin D3 (25 1,000 unit PO BID 12/18/16 06/22/19 History Mcg = 1000 Iu)] DULoxetine HCL [Cymbalta] 60 mg PO HS 12/18/16 06/22/19 History Omeprazole 40 mg PO BID 12/18/16 06/22/19 History Multivitamin [Men's Multi-Vitamin] 1 tab PO DAILY 03/30/18 06/22/19 History Cetirizine HCl [Zyrtec] 10 mg PO DAILY PRN 05/26/18 06/22/19 History Simvastatin [Zocor] 20 mg PO HS 05/26/18 06/22/19 History ALPRAZolam [Xanax] 0.25 mg PO DAILY PRN 06/22/19 06/22/19 History Acyclovir 800 mg PO DAILY 06/22/19 06/22/19 History Ascorbic Acid [Vitamin C] 500 mg PO DAILY 06/22/19 06/22/19 History Cephalexin [Keflex] 2,000 mg PO DAILY 06/22/19 06/22/19 History Diphenoxylate HCl/Atropine 1 - 2 tab PO QID PRN 06/22/19 06/22/19 History [Lomotil 2.5-0.025 mg Tablet] Ferrous Sulfate [Feosol] 325 mg PO DAILY 06/22/19 06/22/19 History Fludrocortisone Acetate 0.1 mg PO DAILY 06/22/19 06/22/19 History Allergies Allergy/AdvReac Type Severity Reaction Status Date / Time No Known Allergies Allergy Verified 06/22/19 11:30 Exam Vital Signs Temp Pulse Resp BP Pulse Ox 06/22/19 11:43 98.5 F 84 18 122/76 92 L Intake and Output 06/21/19 06/22/19 06/22/19 22:59 06:59 14:59 Other: Weight 73.936 kg Height 5'0", weight 163 pounds, BMI 31.8. This is a well-developed well-nourished white female who is alert and oriented times 3 in no acute distress. HEENT: Within normal limits. NECK: Supple without mass or thyromegaly. CHEST AND LUNGS: Clear to auscultation. HEART: Regular rate and rhythm. BREASTS: Are without mass or discharge. AXILLARY EXAM: Negative for adenopathy. BACK: Negative for CVA tenderness. ABDOMEN: Soft, mildly obese, nontender, without palpable masses. PELVIC EXAM: External genitalia appears normal with mild to moderate atrophy. Vagina appears normal with mild to moderate atrophy. There is no evidence of prolapse. Bimanual examination is negative for mass or tenderness. RECTAL EXAM: Rectovaginal exam is negative for mass or tenderness and is negative for occult blood. EXTREMITIES: Nontender. IMPRESSION: 1. 68-year-old menopausal female status post FRANKO BSO for benign reasons with normal gynecologic exam. 2. History of osteopenia. PLAN: 1. Pap smears have been discontinued. 2. Self breast awareness was discussed with the patient. 3. Screening mammogram will be done today. 4. Osteoporosis prevention was discussed. I have stressed the importance of adequate calcium, vitamin D and regular exercise. Recommended amounts of calcium and vitamin D were also discussed. We will plan on repeating bone density testing and 1 to 2 years. Her last bone density test was done on 03/30/2018. 5. She does get flu shots in the fall. 6. The patient was advised to return in 1-2 years for her well woman examination.
--- NOTE | 2019-06-23 14:17 | MM ---
Reason for exam: screening (asymptomatic). Last mammogram was performed 1 year and 3 months ago. History: Patient is postmenopausal and is nulliparous. Family history of breast cancer in grandmother at age 50. Took hormonal contraceptives for 15 years beginning at age 18. Physical Findings: A clinical breast exam by your physician is recommended on an annual basis and results should be correlated with mammographic findings. MG 3D Screening Mammo W/Cad Bilateral CC and MLO view(s) were taken. Prior study comparison: March 30, 2018, bilateral MG 3d screening mammo w/cad. March 25, 2017, bilateral MG 3d screening mammo w/cad. There are scattered fibroglandular densities. Left lateral asymmetry at posterior depth is unchanged from 2016. Left cardiac loop recorder. ASSESSMENT: Benign, BI-RAD 2 RECOMMENDATION: Routine screening mammogram of both breasts in 1 year.
== END ==
LOC: WWCWWP 11:11
PROVIDERS: ATTEND Obstetrics & Gynecology
DX: Z12.31 Encounter for screening mammogram for malignant neoplasm of breast (principal)
CPT/HCPCS: 77063; 77067

== ENCOUNTER → 2020-01-20 | Outpatient (CLI) | payer MEDICARE ==
[2020-01-20 23:47] LABS: African American GFR (CKD) 75.6 (60.0-200.0); Anion Gap 8.9 mmol/L (4.00-12.00); BUN/Creat Ratio 17.78 Ratio (12.00-20.00); Calcium 9.5 mg/dL (8.7-10.3); Carbon Dioxide 28.1 mmol/L (21.6-31.8); Non-African American GFR(CKD) 65.2 (60.0-200.0); Potassium 3.8 mmol/L (3.5-5.5)
== END ==
LOC: LABWHC1 16:56
PROVIDERS: ATTEND Physician Assistant
DX: R63.4 Abnormal weight loss (principal); I95.1 Orthostatic hypotension
CPT/HCPCS: 36415; 80048; 84443

== ENCOUNTER → 2020-07-13 | Outpatient (CLI) | payer MEDICARE ==
[2020-07-13 18:37] LABS: Gliadin AB IgA, Deaminated NEGATIVE (NEGATIVE); Gliadin AB IgA, Unit 2.5 U/mL; Gliadin AB IgG, Deaminated NEGATIVE (NEGATIVE)
== END | disposition home or self-care (01) ==
LOC: LABWHC1 07:37
PROVIDERS: ATTEND Nurse Practitioner
DX: K52.9 Noninfective gastroenteritis and colitis, unspecified (principal)
CPT/HCPCS: 36415; 83516; 83630; 85652; 86140; 87045; 87046; 87328; 87329

== ENCOUNTER → 2020-09-04 | Outpatient (CLI) | payer MEDICARE ==
[2020-09-04 11:39] VITALS: BP 113/64; PULSE 89; RESP 18; TEMP 98.4
--- NOTE | 2020-09-04 12:19 | P.HPOB ---
History of Present Illness H&P Date: 09/04/20 Chief Complaint: The patient is here for her routine gynecologic exam and ma mmogram. This is a 69-year-old with an LMP of 2002. She is status post FRANKO/BSO for benign reasons. She is complaining of left breast tenderness which had become much worse over the past 2 weeks. She does not feel any lump and denies any breast discharge or blood from the nipple. She has been undergoing workup for GI symptoms including diarrhea and vomiting with a 30 pound weight loss over the past year. She recently had a colonoscopy earlier this month with results pending. She is seeing Dr. Juarez for these problems. Review of Systems She has lost about 31 pounds over the past year as in the HPI. She denies respiratory or cardiac problems. GI: She has been having significant diarrhea with occasional vomiting and is undergoing a workup for these symptoms with Dr. Juarez. She has had occasional lightheadedness. Past Medical History Past Medical History: GERD/Reflux, Hyperlipidemia, Osteoarthritis (OA) Additional Past Medical History / Comment(s): Raynauds, varicose veins, hx frequent UTI's, osteopenia. Hiatal hernia. 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 FRANKO BSO was done for endometriosis and abnormal bleeding. History of Any Multi-Drug Resistant Organisms: None Reported Past Surgical History: Cholecystectomy, Heart Catheterization, Hysterectomy, Joint Replacement, Orthopedic Surgery, Tonsillectomy Additional Past Surgical History / Comment(s): D&C, Jonel knee replacements, jonel knee arthroscopy, jonel carpal tunnel, rt foot heel spur. FRANKO BSO in 2002. Cardiac loop recorder placed in 2017. Colonoscopy 2019. Past Anesthesia/Blood Transfusion Reactions: Family History of Problems w/ Anesthesia Additional Past Anesthesia/Blood Transfusion Reaction / Comment(s): sister-pt not sure of what problems Past Psychological History: Depression Smoking Status: Never smoker Past Alcohol Use History: Rare (1 per year) Past Drug Use History: None Reported Additional History: She is single and is not sexually active. She is retired. - Past Family History Mother Family Medical History: No Reported History Father Family Medical History: Congestive Heart Failure (CHF), Myocardial Infarction ([place]) Medications and Allergies Home Medications Medication Instructions Recorded Confirmed Type Acetaminophen [Tylenol] 500 mg PO Q4H PRN 12/18/16 09/04/20 History Cholecalciferol [Vitamin D3 (25 1,000 unit PO BID 12/18/16 09/04/20 History Mcg = 1000 Iu)] Cetirizine HCl [Zyrtec] 10 mg PO DAILY PRN 05/26/18 09/04/20 History Simvastatin [Zocor] 20 mg PO HS 05/26/18 09/04/20 History Cephalexin [Keflex] 2,000 mg PO DAILY 06/22/19 09/04/20 History Amitriptyline HCl 25 mg PO HS 09/04/20 09/04/20 History Ascorbic Acid [Vitamin C] 500 mg PO DAILY 09/04/20 09/04/20 History Dicyclomine [Bentyl] 20 mg PO QID 09/04/20 09/04/20 History Diphenoxylate HCl/Atropine 2 tab PO QID PRN 09/04/20 09/04/20 History [Lomotil 2.5-0.025 mg Tablet] Multivit-Min/Iron/Folic/Lutein 1 each PO DAILY 09/04/20 09/04/20 History [Centrum Silver Women Tablet] Pantoprazole Sodium 40 mg PO BID 09/04/20 09/04/20 History Rifaximin [Xifaxan] 550 mg PO DAILY 09/04/20 09/04/20 History Vitamin C/Biotin [Hair, Skin and 1 each PO DAILY 09/04/20 09/04/20 History Nails] clonazePAM 1 mg PO TID 09/04/20 09/04/20 History Allergies Allergy/AdvReac Type Severity Reaction Status Date / Time No Known Allergies Allergy Verified 09/04/20 11:22 Exam Vital Signs Temp Pulse Resp BP Pulse Ox 09/04/20 11:33 98.4 F 89 18 113/64 97 Intake and Output 09/03/20 09/04/20 09/04/20 22:59 06:59 14:59 Other: Weight 59.874 kg Height 4 feet 11-1/2 inches, weight 132 pounds, BMI 26.2. This is a well-developed well-nourished white female who is alert and oriented times 3 in no acute distress. HEENT: Within normal limits. NECK: Supple without mass or thyromegaly. CHEST AND LUNGS: Clear to auscultation. HEART: Regular rate and rhythm. BREASTS: Are without mass or discharge. There is mild to moderate left breast tenderness in the outer quadrants without palpable mass. AXILLARY EXAM: Negative for adenopathy. BACK: Negative for CVA tenderness. ABDOMEN: Soft, nontender, without palpable masses. PELVIC EXAM: External genitalia appears normal with moderate atrophy. Vagina appears normal with moderate atrophy. There is no evidence of prolapse. Bimanual examination is negative for mass or tenderness. RECTAL EXAM: Rectal examination was refused by the patient. She states she recently had a colonoscopy earlier this month with results pending and has been having lots of GI symptoms including diarrhea. EXTREMITIES: Nontender. IMPRESSION: 1. 69-year-old menopausal female status post FRANKO/BSO with normal gynecologic exam. 2. Unexplained weight loss and GI symptoms including diarrhea and vomiting. She is undergoing a workup by a GI specialist, Dr. Byrne. 3. Left outer quadrant breast mastodynia without palpable mass. 4. History of osteopenia. PLAN: 1. Pap smears have been discontinued. 2. Self breast awareness was discussed with the patient. She was advised to wear a supportive bra. She will also try to avoid caffeine and chocolate. 3. Diagnostic mammogram will be done today. 4. She is due for a bone density test and the order slip was given to the patient for this. She understands this is not urgent and should probably complete her GI workup and workup for her weight loss first. 5. She did get her flu shot recently. 6. The patient was advised to return in 1-2 years for her well woman examination.
--- NOTE | 2020-09-04 14:55 | MM ---
Reason for exam: clinical finding. Last mammogram was performed 1 year and 2 months ago. History: Patient is postmenopausal and is nulliparous. Family history of breast cancer in grandmother at age 50. Took hormonal contraceptives for 15 years beginning at age 18. Physical Findings: Dr. Miranda did breast exam. MG 3D Diag Mammo W/Cad KIRK Bilateral CC and MLO view(s) were taken. Prior study comparison: June 22, 2019, bilateral MG 3d screening mammo w/cad. March 30, 2018, bilateral MG 3d screening mammo w/cad. There are scattered fibroglandular densities. There is no discrete abnormality. Left posterior loop recorder redemonstrated. These results were verbally communicated with the patient and result sheet given to the patient on 09/04/20. ASSESSMENT: Benign, BI-RAD 2 RECOMMENDATION: Routine screening mammogram of both breasts in 1 year. Manage on a clinical basis with regard to pain.
== END | disposition home or self-care (01) ==
LOC: WWCWWP 11:12
PROVIDERS: ATTEND Obstetrics & Gynecology
DX: N64.4 Mastodynia (principal)
CPT/HCPCS: 77066; G0279; 77062

== ENCOUNTER 2023-04-08 12:41 | Emergency (ER) | payer MEDICARE ==
[2023-04-08] MEDS ORDERED: SODIUM CHLORIDE 0.9% 1,000 ML IV ONE (12:53)
[2023-04-08] MEDS ORDERED: ACETAMINOPHEN TAB 500 MG TAB PO STA (12:54)
--- NOTE | 2023-04-08 13:09 | ED ---
Fall HPI - General Chief Complaint: Fall Stated Complaint: heat stroke Time Seen by Provider: 04/08/23 12:46 Source: EMS Mode of arrival: EMS - History of Present Illness Initial Comments: 72-year-old female past medical history of depression who presents to the emergency department with slurred speech. She was outside for approximately one hour when she states that she sustained a mechanical fall. Patient fell forward. Unsure if she hit her head. States that she did not lose consciousness. She could not get up. Neighbor found the patient face down and called EMS. EMS noted the slurred speech however the patient had no other lateralizing symptoms. It was noted that the patient had a high temp and there was concern for heat stroke. Patient arrives and is answering questions appropriately. She does have a fever. Denies feeling ill before going outside. She denies any injuries from falling. No neck or back pain. No pain in her extremities. No visual changes. No chest pain. No other alleviating, precipitating or modifying factors - Related Data Home Medications Medication Instructions Recorded Confirmed Simvastatin [Zocor] 20 mg PO HS 05/26/18 04/08/23 clonazePAM 0.5 mg PO QID 09/04/20 04/08/23 Nortriptyline [Pamelor] 100 mg PO HS 04/08/23 04/08/23 OLANZapine [ZyPREXA] 10 mg PO HS 04/08/23 04/08/23 Allergies Allergy/AdvReac Type Severity Reaction Status Date / Time No Known Allergies Allergy Verified 04/08/23 13:56 Review of Systems ROS Statement: Those systems with pertinent positive or pertinent negative responses have been documented in the HPI. ROS Other: All systems not noted in ROS Statement are negative. Past Medical History Past Medical History: GERD/Reflux, Hyperlipidemia, Osteoarthritis (OA) Additional Past Medical History / Comment(s): Raynauds, varicose veins, hx frequent UTI's, osteopenia. Hiatal hernia. Past [employer] history: she has no history of STDs. [facility] BSO was done for endometriosis and abnormal bleeding. History of Any Multi-Drug Resistant Organisms: None Reported Past Surgical History: Cholecystectomy, Heart Catheterization, Hysterectomy, Joint Replacement, Orthopedic Surgery, Tonsillectomy Additional Past Surgical History / Comment(s): D&C, Jonel knee replacements, jonel knee arthroscopy, jonel carpal tunnel, rt foot heel spur. [facility] BSO in 2003. Cardiac loop recorder placed in 2018. Colonoscopy 2019. Past Anesthesia/Blood Transfusion Reactions: Family History of Problems w/ Anesthesia Additional Past Anesthesia/Blood Transfusion Reaction / Comment(s): sister-pt not sure of what problems Past Psychological History: Depression Smoking Status: Never smoker Past Alcohol Use History: Rare Past Drug Use History: None Reported - Past Family History Mother Family Medical History: No Reported History Father Family Medical History: Congestive Heart Failure (CHF), Myocardial Infarction ( CO) General Exam Limitations: no limitations General appearance: alert, in no apparent distress Head exam: Present: atraumatic, normocephalic, normal inspection Eye exam: Present: normal appearance, PERRL, EOMI. Absent: scleral icterus, conjunctival injection, periorbital swelling ENT exam: Present: normal exam, mucous membranes moist Neck exam: Present: normal inspection. Absent: tenderness, meningismus, lymphadenopathy Respiratory exam: Present: normal lung sounds bilaterally. Absent: respiratory distress, wheezes, rales, rhonchi, stridor Cardiovascular Exam: Present: normal rhythm, tachycardia, normal heart sounds. Absent: systolic murmur, diastolic murmur, rubs, gallop, clicks GI/Abdominal exam: Present: soft, normal bowel sounds. Absent: distended, tenderness, guarding, rebound, rigid Extremities exam: Present: normal inspection, full ROM, normal capillary refill. Absent: tenderness, pedal edema, joint swelling, calf tenderness Back exam: Present: normal inspection Neurological exam: Present: alert, oriented X3, CN II-XII intact Psychiatric exam: Present: normal mood, flat affect Skin exam: Present: warm, dry, intact, normal color. Absent: rash Course Vital Signs 04/08/23 04/08/23 04/08/23 12:42 12:55 14:00 Temperature 102.1 F H 100.2 F H 98.1 F Pulse Rate 110 H 104 H 96 Respiratory 18 20 18 Rate Blood Pressure 123/68 113/60 109/71 O2 Sat by Pulse 94 L 95 98 Oximetry 04/08/23 15:44 Temperature Pulse Rate 95 Respiratory 18 Rate Blood Pressure 118/80 O2 Sat by Pulse 96 Oximetry Medical Decision Making - Medical Decision Making Was pt. sent in by a medical professional or institution (, PA, [employer], urgent care, hospital, or usp...) When possible be specific @ -No Did you speak to anyone other than the patient for history (EMS, parent, family, police, friend...)? What history was obtained from this source @ -EMS provided the history of how the patient was found Did you review nursing and triage notes (agree or disagree)? Why? @ -I reviewed and agree with nursing and triage notes Were old charts reviewed (outside hosp., previous admission, EMS record, old EKG, old radiological studies, urgent care reports/EKG's, usp records)? Report findings @ -No old charts were reviewed Differential Diagnosis (chest pain, altered mental status, abdominal pain women, abdominal pain men, vaginal bleeding, weakness, fever, dyspnea, syncope, headache, dizziness, GI bleed, back pain, seizure, CVA, palpatations, mental health, musculoskeletal)? @ -Differential Altered Mental Status: Hypoglycemia, DKA, hypercapnia, ETOH, overdose, CO poisoning, trauma, myxedema coma, HTN encephalopathy, infection, encephalitis, psychosis, intercranial hemorrhage, hepatic encephalopathy, meningitis, CVA, this is not meant to be an all-inclusive list EKG interpreted by me (3pts min.). @ -EKG interpreted by me demonstrates sinus tachycardia with a rate of 107. [place] interval of 190. QRS 90. QTC of 456. J-point elevation in the inferior leads. No reciprocal changes X-rays interpreted by me (1pt min.). @ -Yes and demonstrates no acute intrathoracic process CT interpreted by me (1pt min.). @ -Yes and demonstrates no acute intracranial process U/S interpreted by me (1pt. min.). @ -None done What testing was considered but not performed or refused? (CT, X-rays, U/S, labs)? Why? @ -None What meds were considered but not given or refused? Why? @ -None Did you discuss the management of the patient with other professionals (professionals i.e. , PA, [employer], lab, RT, psych nurse, criminal justice social worker, ichthyology teacher, teacher, ict customer support officer, case monitor)? Give summary @ -No Was smoking cessation discussed for >3mins.? @ -No Was critical care preformed (if so, how long)? @ -No Were there social determinants of health that impacted care today? How? (Homelessness, low income, unemployed, alcoholism, drug addiction, transportation, low edu. Level, literacy, decrease access to med. care, skilled nursing, rehab)? @ -No Was there de-escalation of care discussed even if they declined (Discuss DNR or withdrawal of care, Hospice)? DNR status @ -No What co-morbidities impacted this encounter? (DM, HTN, Smoking, COPD, CAD, Cancer, CVA, ARF, Chemo, Hep., AIDS, mental health diagnosis, sleep apnea, morbid obesity)? @ -None Was patient admitted / discharged? Hospital course, mention meds given and route, prescriptions, significant lab abnormalities, going to OR and other pertinent info. @ -Upon arrival patient was placed into trauma 2. A thorough history and physical exam is performed. Patient does have a fever. She is given Tylenol. Laboratory studies are conducted are reviewed. Patient does have a CT of her head performed due to unknown head trauma. Chest x-ray is also performed. Patient reevaluated and fever has returned to normal. Patient feels good at this time and wants to go home. She needs to follow up with her doctor in 2 to 4 days. Return for any new or worsening symptoms. Patient discharged home in stable condition Undiagnosed new problem with uncertain prognosis? @ -Yes Drug Therapy requiring intensive monitoring for toxicity (Heparin, Nitro, Insulin, Cardizem)? @ -No Were any procedures done? @ -No Diagnosis/symptom? @ -Acute fall, for long downtime, heat exhaustion, acute pyrexia, sinus tach ycardia Acute, or Chronic, or Acute on Chronic? @ -Acute Uncomplicated (without systemic symptoms) or Complicated (systemic symptoms)? @ -Complicated Side effects of treatment? @ -No Exacerbation, Progression, or Severe Exacerbation? @ -No Poses a threat to life or bodily function? How? (Chest pain, USA, CO, pneumonia, PE, COPD, DKA, ARF, appy, cholecystitis, CVA, Diverticulitis, Homicidal, Suicidal, threat to staff... and all critical care pts) @ -Yes, had the patient not been found, she could have suffered from heat stroke - Lab Data Result diagrams: 04/08/23 13:05 04/08/23 13:05 Lab Results 04/08/23 04/08/23 04/08/23 Range/Units 13:05 13:05 13:05 WBC 3.5 L (3.8-10.6) k/uL RBC 3.83 (3.80-5.40) m/uL Hgb 12.3 (11.4-16.0) gm/dL Hct 37.0 (34.0-46.0) % MCV 96.6 (80.0-100.0) fL MCH 32.1 (25.0-35.0) pg MCHC 33.3 (31.0-37.0) g/dL RDW 12.5 (11.5-15.5) % Plt Count 174 (150-450) k/uL MPV 8.8 Neutrophils % 58 % Lymphocytes % 27 % Monocytes % 10 % Eosinophils % 2 % Basophils % 1 % Neutrophils # 2.0 (1.3-7.7) k/uL Lymphocytes # 0.9 L (1.0-4.8) k/uL Monocytes # 0.3 (0-1.0) k/uL Eosinophils # 0.1 (0-0.7) k/uL Basophils # 0.0 (0-0.2) k/uL Sodium 139 (137-145) mmol/L Potassium 5.0 (3.5-5.1) mmol/L Chloride 105 (98-107) mmol/L Carbon Dioxide 24 (22-30) mmol/L Anion Gap 10 mmol/L BUN 19 H (7-17) mg/dL Creatinine 0.71 (0.52-1.04) mg/dL Est GFR (CKD-EPI)AfAm >90 (>60 ml/min/1.73 sqM) Est GFR (CKD-EPI)NonAf 86 (>60 ml/min/1.73 sqM) Glucose 95 (74-99) mg/dL Plasma Lactic Acid Silvino (0.7-2.0) mmol/L Calcium 9.1 (8.4-10.2) mg/dL Total Bilirubin 0.6 (0.2-1.3) mg/dL AST 34 (14-36) U/L ALT 24 (4-34) U/L Alkaline Phosphatase 67 (38-126) U/L Creatine Kinase 150 H (30-135) U/L Total Protein 6.5 (6.3-8.2) g/dL Albumin 3.9 (3.5-5.0) g/dL Urine Color Yellow Urine Appearance Clear (Clear) Urine pH 7.0 (5.0-8.0) Ur Specific Commerce 1.007 (1.001-1.035) Urine Protein Negative (Negative) Urine Glucose (UA) Negative (Negative) Urine Ketones Negative (Negative) Urine Blood Negative (Negative) Urine Nitrite Negative (Negative) Urine Bilirubin Negative (Negative) Urine Urobilinogen <2.0 (<2.0) mg/dL Ur Leukocyte Esterase Small H (Negative) Urine RBC <1 (0-5) /hpf Urine WBC 1 (0-5) /hpf Ur Squamous Epith Cells <1 (0-4) /hpf Urine Mucus Rare H (None) /hpf Coronavirus (PCR) (Not Detectd) 04/08/23 04/08/23 Range/Units 13:05 13:05 WBC (3.8-10.6) k/uL RBC (3.80-5.40) m/uL Hgb (11.4-16.0) gm/dL Hct (34.0-46.0) % MCV (80.0-100.0) fL MCH (25.0-35.0) pg MCHC (31.0-37.0) g/dL RDW (11.5-15.5) % Plt Count (150-450) k/uL MPV Neutrophils % % Lymphocytes % % Monocytes % % Eosinophils % % Basophils % % Neutrophils # (1.3-7.7) k/uL Lymphocytes # (1.0-4.8) k/uL Monocytes # (0-1.0) k/uL Eosinophils # (0-0.7) k/uL Basophils # (0-0.2) k/uL Sodium (137-145) mmol/L Potassium (3.5-5.1) mmol/L Chloride (98-107) mmol/L Carbon Dioxide (22-30) mmol/L Anion Gap mmol/L BUN (7-17) mg/dL Creatinine (0.52-1.04) mg/dL Est GFR (CKD-EPI)AfAm (>60 ml/min/1.73 sqM) Est GFR (CKD-EPI)NonAf (>60 ml/min/1.73 sqM) Glucose (74-99) mg/dL Plasma Lactic Acid Silvino 1.6 (0.7-2.0) mmol/L Calcium (8.4-10.2) mg/dL Total Bilirubin (0.2-1.3) mg/dL AST (14-36) U/L ALT (4-34) U/L Alkaline Phosphatase (38-126) U/L Creatine Kinase (30-135) U/L Total Protein (6.3-8.2) g/dL Albumin (3.5-5.0) g/dL Urine Color Urine Appearance (Clear) Urine pH (5.0-8.0) Ur Specific Commerce (1.001-1.035) Urine Protein (Negative) Urine Glucose (UA) (Negative) Urine Ketones (Negative) Urine Blood (Negative) Urine Nitrite (Negative) Urine Bilirubin (Negative) Urine Urobilinogen (<2.0) mg/dL Ur Leukocyte Esterase (Negative) Urine RBC (0-5) /hpf Urine WBC (0-5) /hpf Ur Squamous Epith Cells (0-4) /hpf Urine Mucus (None) /hpf Coronavirus (PCR) Not Detected (Not Detectd) Disposition Clinical Impression: Fall, Heat collapse Disposition: HOME SELF-CARE Condition: Stable Instructions (If sedation given, give patient instructions): Fall Prevention (ED) Additional Instructions: Please follow-up with your primary care doctor in 2-4 days and return for any new or worsening symptoms Is patient prescribed a controlled substance at d/c from ED?: No Referrals: Fitz Ledesma MD [Primary Care Provider] - 1-2 days Time of Disposition: 15:08
[2023-04-08 13:23] LABS: Basophils % (A) 1 %; Eosinophils # (A) 0.1 k/uL (0-0.7); Eosinophils % (A) 2 %; HGB 12.3 gm/dL (11.4-16.0); Lymphocytes # (A) 0.9 k/uL (1.0-4.8); Lymphocytes % (A) 27 %; MCH 32.1 pg (25.0-35.0); MCHC 33.3 g/dL (31.0-37.0); MCV 96.6 fL (80.0-100.0); Mean Platelet Volume 8.8; Monocytes # (A) 0.3 k/uL (0-1.0); Monocytes % (A) 10 %; Neutrophils % (A) 58 %; Platelet Count 174 k/uL (150-450); RBC 3.83 m/uL (3.80-5.40); RDW 12.5 % (11.5-15.5); WBC 3.5 k/uL (3.8-10.6)
[2023-04-08 13:39] LABS: ALT 24 U/L (4-34); AST 34 U/L (14-36); African American GFR (CKD) >90 (>60 ml/min/1.73 sqM); Albumin 3.9 g/dL (3.5-5.0); Alkaline Phosphatase 67 U/L (38-126); Anion Gap 10 mmol/L; Blood Urea Nitrogen 19 mg/dL (7-17); Calcium 9.1 mg/dL (8.4-10.2); Carbon Dioxide 24 mmol/L (22-30); Chloride 105 mmol/L (98-107); Creatine Kinase 150 U/L (30-135); Glucose 95 mg/dL (74-99); Non-African American GFR(CKD) 86 (>60 ml/min/1.73 sqM); Sodium 139 mmol/L (137-145); Total Bilirubin 0.6 mg/dL (0.2-1.3); Total Protein 6.5 g/dL (6.3-8.2)
--- NOTE | 2023-04-08 14:02 | CT ---
EXAMINATION TYPE: CT brain cspine wo con DATE OF EXAM: 04/08/2023 COMPARISON: CT brain January 03, 2018 HISTORY: Fall, LOC. PT states hx of this CT DLP: 1333.9 mGycm. Automated Exposure Control for Dose Reduction was Utilized. TECHNIQUE: CT scan of the head and cervical spine are performed without contrast. FINDINGS: There is no acute intracranial hemorrhage or midline shift identified. Mild to moderate v entricular and sulcal prominence. [place]ada-white matter differentiation fairly well-preserved. The calvar ium is intact. The globes are intact and the visualized sinuses are clear. Cervical spine is visualized in its entirety from C1 through upper thoracic levels and demonstrates g rade 1 retrolisthesis C3 on C4 without evidence of acute fracture or dislocation. Prevertebral soft tissue appears within normal limits. The C1-C2 articulation is within normal limits on the coronal i mages. Vertebral body heights are preserved. There is [id number] disc space narrowing C3-C4 al leydi with C5-C6 and C6-C7 levels. Mild to moderate multilevel anterior spurring is seen. Posterior spu r disc complexes efface the anterior thecal sac at several levels in the cervical spine. Review of axial images shows multilevel uncovertebral facet degenerative changes causing multilevel b ilateral neural foraminal narrowing more prominent on the left. There is heterogeneous enlarged thyro id suggestive of diffuse goiter. Correlate clinically. Advise nonemergent thyroid ultrasound follow-u p to further evaluate if this is not known finding. Lung apices show no pneumothorax. IMPRESSION: 1. There is no acute fracture or dislocation evident in the cervical spine. 2. No acute intracranial hemorrhage or midline shift is seen.
--- NOTE | 2023-04-08 14:08 | XR ---
EXAMINATION TYPE: XR chest 2V DATE OF EXAM: 04/08/2023 COMPARISON: NONE TECHNIQUE: PA and lateral views submitted. HISTORY: fever FINDINGS: The lungs are clear and there is no pneumothorax, pleural effusion, or focal pneumonia. Heart size normal and no overt failure. Osseous structures demonstrate hypertrophic and degenerative changes of the spine. Hyperinflation of the lungs. Postsurgical changes in the pelvis. Loop recorder overlying the left chest. Diffuse osteopenia and arthropathy of the shoulders. IMPRESSION: 1. No acute process.
[2023-04-08 14:19] VITALS: RESP 18; TEMP 98.1
[2023-04-08 15:04] LABS: Appearance,Urine Clear (Clear); Bilirubin,Urine Negative (Negative); Blood,Urine Negative (Negative); Color,Urine Yellow; Glucose,Urine (UA) Negative (Negative); Ketones,Urine Negative (Negative); Leukocyte Esterase,Urine Small (Negative); Mucus,Urine Rare /hpf; Nitrite,Urine Negative (Negative); Protein,Urine Negative (Negative); RBC,Urine <1 /hpf (0-5); Specific Gravity,Urine 1.007 (1.001-1.035); Squamous Epithelial Cell,Urine <1 /hpf (0-4); Urobilinogen,Urine <2.0 mg/dL (<2.0); WBC,Urine 1 /hpf (0-5)
[2023-04-08 15:48] VITALS: BP 118/80; PULSE 95
== END 2023-04-08 15:48 | disposition home or self-care (01) ==
LOC: EC 12:41
DX: T67.1XXA Heat syncope, initial encounter (principal); F32.A Depression, unspecified; E78.5 Hyperlipidemia, unspecified; M19.90 Unspecified osteoarthritis, unspecified site; Z79.899 Other long term (current) drug therapy; W17.89XA Other fall from one level to another, initial encounter
CPT/HCPCS: 36415; 70450; 71046; 72125; 80053; 81001; 82550; 83605; 85025; 87635; 93005; 96360; 96361; 99285

== ENCOUNTER → 2023-07-23 | Outpatient (CLI) | payer MEDICARE ==
[2023-07-23 15:57] LABS: ALT 24 U/L (8-44); AST 22 U/L (13-35); Albumin 4.6 d/dL (3.8-4.9); Albumin/Globulin Ratio 2.42 Ratio (1.60-3.17); Alkaline Phosphatase 71 U/L (41-126); BUN/Creat Ratio 24.86 Ratio (12.00-20.00); Blood Urea Nitrogen 17.4 mg/dL (9.0-27.0); Carbon Dioxide 30.7 mmol/L (21.6-31.8); Chloride 105 mmol/L (96-109); Globulin 1.9 d/dL (1.6-3.3); Glucose 85 mg/dL (70-110); Potassium 4.3 mmol/L (3.5-5.5); Sodium 144 mmol/L (135-145); Total Bilirubin 0.4 mg/dL (0.3-1.2); Total Protein 6.5 d/dL (6.2-8.2)
[2023-07-23 16:08] LABS: Basophils # (A) 0.02 X 10*3/uL (0.00-0.10); Basophils % (A) 0.5 %; Eosinophils # (A) 0.08 X 10*3/uL (0.04-0.35); Eosinophils % (A) 1.9 %; HCT 39.5 % (37.2-46.3); HGB 12.5 d/dL (12.0-15.0); Lymphocytes # (A) 1.22 X 10*3/uL (0.90-5.00); Lymphocytes % (A) 28.9 %; MCH 31.4 pg (27.0-32.0); MCHC 31.6 d/dL (32.0-37.0); MCV 99.2 FL (80.0-97.0); Mean Platelet Volume 10.3 FL (9.5-12.2); Monocytes # (A) 0.43 X 10*3/uL (0.20-1.00); Monocytes % (A) 10.2 %; NRBC Per 100 WBC 0 X 10*3/uL (0.00-0.01); Neutrophils # (A) 2.46 X 10*3/uL (1.80-7.70); Neutrophils % (A) 58.3 %; Platelet Count 207 X 10*3/uL (140-440); RBC 3.98 X 10*6/uL (4.10-5.20); RDW 12.3 % (11.5-14.5); WBC 4.22 X 10*3/uL (4.50-10.00)
== END | disposition home or self-care (01) ==
LOC: LABWHC1 11:07
PROVIDERS: ATTEND Internal Medicine Geriatric Medicine
DX: R79.9 Abnormal finding of blood chemistry, unspecified (principal)
CPT/HCPCS: 36415; 80053; 85025

== ENCOUNTER 2023-11-15 14:38 | Inpatient (IN) | payer MEDICARE ==
[2023-11-15 15:57] LABS: Basophils % (A) 0 %; Eosinophils % (A) 0 %; HCT 37.3 % (34.0-46.0); HGB 12.6 gm/dL (11.4-16.0); Lymphocytes # (A) 1.2 k/uL (1.0-4.8); Lymphocytes % (A) 16 %; MCH 32.9 pg (25.0-35.0); MCHC 33.8 g/dL (31.0-37.0); MCV 97.3 fL (80.0-100.0); Mean Platelet Volume 7.7; Monocytes # (A) 0.7 k/uL (0-1.0); Monocytes % (A) 9 %; Neutrophils # (A) 5.2 k/uL (1.3-7.7); Neutrophils % (A) 72 %; Platelet Count 206 k/uL (150-450); RBC 3.83 m/uL (3.80-5.40); RDW 12.3 % (11.5-15.5); WBC 7.2 k/uL (3.8-10.6)
--- NOTE | 2023-11-15 16:08 | XR ---
EXAMINATION TYPE: XR chest 2V DATE OF EXAM: 11/15/2023 COMPARISON: 04/08/2023 HISTORY: 72-year-old female increased weakness, leg edema TECHNIQUE: AP and lateral views FINDINGS: Heart mildly enlarged. Hyperinflation. No consolidation or pleural effusion. IMPRESSION: Mild cardiomegaly and COPD. No acute process otherwise seen.
[2023-11-15 16:13] LABS: ALT 107 U/L (4-34); AST 271 U/L (14-36); African American GFR (CKD) >90 (>60 ml/min/1.73 sqM); Albumin 3.9 g/dL (3.5-5.0); Alkaline Phosphatase 90 U/L (38-126); Anion Gap 5 mmol/L; Appearance,Urine Clear (Clear); Bilirubin,Urine Negative (Negative); Blood Urea Nitrogen 18 mg/dL (7-17); Blood,Urine Negative (Negative); Calcium 9.2 mg/dL (8.4-10.2); Carbon Dioxide 30 mmol/L (22-30); Chloride 103 mmol/L (98-107); Color,Urine Yellow; Glucose 86 mg/dL (74-99); Glucose,Urine (UA) Negative (Negative); Ketones,Urine Negative (Negative); Leukocyte Esterase,Urine Large (Negative); Mucus,Urine Few /hpf; Nitrite,Urine Negative (Negative); Non-African American GFR(CKD) 90 (>60 ml/min/1.73 sqM); PH, Urine 6.5 (5.0-8.0); Protein,Urine Trace (Negative); RBC,Urine 4 /hpf (0-5); Sodium 138 mmol/L (137-145); Specific Gravity,Urine 1.017 (1.001-1.035); Squamous Epithelial Cell,Urine 2 /hpf (0-4); Total Bilirubin 0.8 mg/dL (0.2-1.3); Total Protein 6.5 g/dL (6.3-8.2); Urobilinogen,Urine <2.0 mg/dL (<2.0); WBC,Urine 34 /hpf (0-5)
[2023-11-15 16:22] LABS: NT-Pro-B-Type Natriuretic Pept 224 pg/mL
--- NOTE | 2023-11-15 16:23 | CT ---
EXAMINATION TYPE: CT brain wo con DATE OF EXAM: 11/15/2023 COMPARISON: 04/08/2023 HISTORY: 72-year-old female weakness ams TECHNIQUE: Examination was done in axial plane without intravenous contrast. Coronal and sagittal r econstructions performed. CT DLP: 1093.4 mGycm Automated exposure control for dose reduction was used. FINDINGS: There is no evidence of acute intracranial hemorrhage, acute ischemic changes, mass, mass-effect, or extra-axial fluid collection. There is no effacement of cerebral sulci or basal subarachnoid cister ns. There is no hydrocephalus. There is no midline shift. [place]jada-white matter distinction is preserv ed. Mild mucosal thickening ethmoid air cells. Slight leftward nasal septal deviation. Mastoid air cells well pneumatized. Orbits and globes are intact. IMPRESSION: No acute intracranial abnormality seen. Mild chronic ethmoid sinus disease.
--- NOTE | 2023-11-15 16:42 | ED ---
General Adult HPI - General Chief complaint: Weakness Stated complaint: Tremours, Limited leg use Time Seen by Provider: 11/15/23 15:24 Source: patient, family, RN notes reviewed Mode of arrival: wheelchair Limitations: no limitations - History of Present Illness Initial comments: 72 year old female with no significant past medical history presents to the emergency department with a chief complaint of generalized weakness. Patient reports that she has had difficulty walking over the last 2 days. She reports that she has had increased weakness and she is concerned that she would fall. She denies any falls, injury or trauma. She does report having bilateral lower extremity edema which she was prescribed Lasix prescribed by her PCP ho ralu has not taken any doses because she is concerned about having to use the restroom frequently. She denies Chills, cough, chest pain, headache, shortness of breath, abdominal pain - Related Data Home Medications Medication Instructions Recorded Confirmed Simvastatin [Zocor] 20 mg PO HS 05/26/18 11/15/23 clonazePAM 0.5 mg PO TID 09/04/20 11/15/23 Furosemide [Lasix] 20 mg PO DIRECTED 11/15/23 11/15/23 Ketoconazole 2% Shampoo [Nizoral] 1 applic TOPICAL WE 11/15/23 11/15/23 OLANZapine 5 mg PO DAILY 11/15/23 11/15/23 OLANZapine 15 mg PO HS 11/15/23 11/15/23 PARoxetine HCL [Paxil] 30 mg PO HS 11/15/23 11/15/23 Allergies Allergy/AdvReac Type Severity Reaction Status Date / Time No Known Allergies Allergy Verified 11/15/23 18:30 Review of Systems ROS Statement: Those systems with pertinent positive or pertinent negative responses have been documented in the HPI. ROS Other: All systems not noted in ROS Statement are negative. Past Medical History Past Medical History: GERD/Reflux, Hyperlipidemia, Osteoarthritis (OA) Additional Past Medical History / Comment(s): Raynauds, varicose veins, hx frequent UTI's, osteopenia. Hiatal hernia. Past MEDICAID BILLER history: she has no h istory of STDs. FRANKO BSO was done for endometriosis and abnormal bleeding. History of Any Multi-Drug Resistant Organisms: None Reported Past Surgical History: Cholecystectomy, Heart Catheterization, Hysterectomy, Joint Replacement, Orthopedic Surgery, Tonsillectomy Additional Past Surgical History / Comment(s): D&C, Darrell knee replacements, darrell knee arthroscopy, darrell carpal tunnel, rt foot heel spur. [facility] BSO in 2002. Cardia c loop recorder placed in 2017. Colonoscopy 2019. Past Anesthesia/Blood Transfusion Reactions: Family History of Problems w/ Anesthesia Additional Past Anesthesia/Blood Transfusion Reaction / Comment(s): sister-pt not sure of what problems Past Psychological History: Depression Smoking Status: Never smoker Past Alcohol Use History: Rare Past Drug Use History: None Reported - Past Family History Mother Family Medical History: No Reported History Father Family Medical History: Congestive Heart Failure (CHF), Myocardial Infarction (AR) General Exam - General Exam Comments Initial Comments: General: Alert, in no acute distress Head: atraumatic normocephalic. Eyes PERRL, EOMI intact, mucous membranes moist Respiratory: Lungs clear to auscultation bilaterally Cardiovascular: Heart rate regular rate and rhythm Abdominal: Soft without guarding or rebound Extremities: Normal inspection with full range of motion and normal capillary refill Neuroogic: alert and oriented 3, CN II-XII intact, able to ambulate with steady gait Skin: warm dry and intact with normal color Limitations: no limitations Course Vital Signs 11/15/23 11/15/23 11/15/23 14:45 15:48 19:20 Temperature 98.8 F Pulse Rate 88 93 80 Respiratory 20 18 17 Rate Blood Pressure 120/71 136/85 119/65 O2 Sat by Pulse 99 98 98 Oximetry - Reevaluation(s) Reevaluation #1: 11/15/23 18:04 Case is discussed with [facility] who agrees and accepts the patient for placement due to patient being able to ambulate only a few feet and increased fall risk EKG Findings - EKG Comments: EKG Findings:: i interpreted the following: EKG performed at 15:34 rate 86 bpm normal sinus rhythm NV interval 164, QRS duration 86, QT/QTc 364/407 Medical Decision Making - Medical Decision Making Was pt. sent in by a medical professional or institution (, PA, INSTRUMENT INSPECTOR, urgent care, hospital, or assisted...) When possible be specific @ -[No] Did you speak to anyone other than the patient for history (EMS, parent, family, police, friend...)? What history was obtained from this source @ -[No] Did you review nursing and triage notes (agree or disagree)? Why? @ -[I reviewed and agree with nursing and triage notes] Were old charts reviewed (outside hosp., previous admission, EMS record, old EKG, old radiological studies, urgent care reports/EKG's, assisted records)? Report findings @ -[No old charts were reviewed] Differential Diagnosis (chest pain, altered mental status, abdominal pain women, abdominal pain men, vaginal bleeding, weakness, fever, dyspnea, syncope, headache, dizziness, GI bleed, back pain, seizure, CVA, palpatations, mental health, musculoskeletal)? @ -[not applicable] EKG interpreted by me (3pts min.). @ -[As above] X-rays interpreted by me (1pt min.). @ -Chest x-ray reveals mild cardiomegaly however no focal consolidation CT interpreted by me (1pt min.). @ CT does not reveal any intracranial process U/S interpreted by me (1pt. min.). @ -[None done] What testing was considered but not performed or refused? (CT, X-rays, U/S, labs)? Why? @ -[None] What meds were considered but not given or refused? Why? @ -[None] Did you discuss the management of the patient with other professionals (pro fessionals i.e. , PA, INSTRUMENT INSPECTOR, lab, RT, psych nurse, pediatric social worker, environmental program manager, teacher, credit administration officer, director case)? Give summary @ -[No] Was smoking cessation discussed for >3mins.? @ -[No] Was critical care preformed (if so, how long)? @ -[No] Were there social determinants of health that impacted care today? How? (Homelessness, low income, unemployed, alcoholism, drug addiction, singh sportation, low edu. Level, literacy, decrease access to med. care, [facility], rehab)? @ -[No] Was there de-escalation of care discussed even if they declined (Discuss DNR or withdrawal of care, Hospice)? DNR status @ -[No] What co-morbidities impacted this encounter? (DM, HTN, Smoking, COPD, CAD, Cancer, CVA, ARF, Chemo, Hep., AIDS, mental health diagnosis, sleep apnea, morbid obesity)? @ -[None] Was patient admitted / discharged? Hospital course, mention meds given and route, prescriptions, significant lab abnormalities, going to OR and other pertinent info. @ . This is a 72-year-old female who presents the emergency department with weakness. Patient had a thorough history and physical exam performed. There is a left upper extremity tremor at rest. Heart rate regular rate and rhythm, with lungs clear to auscultation Extensive lab studies and imaging which were unremarkable. Patient was attempted to ambulate around the emergency department without succes Patient is unable to walk more than 10 steps. patient will be admitted for placement. Case is discussed with department and that should be specific suspicion. Case is discussed with Dr. Maki, ED attending who agrees with plan. Undiagnosed new problem with uncertain prognosis? @ -[No] Drug Therapy requiring intensive monitoring toxicity (Heparin, Nitro, Insulin, Cardizem)? @ -[No] Were any procedures done? @ -[No] Diagnosis/symptom? @ -Weakness Acute, or Chronic, or Acute on Chronic? @ -Acute Uncomplicated (without systemic symptoms) or Complicated (systemic symptoms)? @ -Uncomplicated Side effects of treatment? @ -[No] Exacerbation, Progression, or Severe Exacerbation? @ -[No] Poses a threat to life or bodily function? How? (Chest pain, USA, AR, pneumonia, PE, COPD, DKA, ARF, appy, cholecystitis, CVA, Diverticulitis, Homicidal, Suicidal, threat to staff... and all critical care pts) @ -yes, increased fall risk - Lab Data Result diagrams: 11/15/23 15:43 11/15/23 15:43 Lab Results 11/15/23 11/15/23 11/15/23 Range/Units 15:43 15:43 15:43 WBC 7.2 (3.8-10.6) k/uL RBC 3.83 (3.80-5.40) m/uL Hgb 12.6 (11.4-16.0) gm/dL Hct 37.3 (34.0-46.0) % MCV 97.3 (80.0-100.0) fL MCH 32.9 (25.0-35.0) pg MCHC 33.8 (31.0-37.0) g/dL RDW 12.3 (11.5-15.5) % Plt Count 206 (150-450) k/uL MPV 7.7 Neutrophils % 72 % Lymphocytes % 16 % Monocytes % 9 % Eosinophils % 0 % Basophils % 0 % Neutrophils # 5.2 (1.3-7.7) k/uL Lymphocytes # 1.2 (1.0-4.8) k/uL Monocytes # 0.7 (0-1.0) k/uL Eosinophils # 0.0 (0-0.7) k/uL Basophils # 0.0 (0-0.2) k/uL Sodium 138 (137-145) mmol/L Potassium 4.0 (3.5-5.1) mmol/L Chloride 103 (98-107) mmol/L Carbon Dioxide 30 (22-30) mmol/L Anion Gap 5 mmol/L BUN 18 H (7-17) mg/dL Creatinine 0.63 (0.52-1.04) mg/dL Est GFR (CKD-EPI)AfAm >90 (>60 ml/min/1.73 sqM) Est GFR (CKD-EPI)NonAf 90 (>60 ml/min/1.73 sqM) Glucose 86 (74-99) mg/dL Calcium 9.2 (8.4-10.2) mg/dL Total Bilirubin 0.8 (0.2-1.3) mg/dL AST 271 H (14-36) U/L ALT 107 H (4-34) U/L Alkaline Phosphatase 90 (38-126) U/L Troponin I (0.000-0.034) ng/mL NT-Pro-B Natriuret Pep 224 pg/mL Total Protein 6.5 (6.3-8.2) g/dL Albumin 3.9 (3.5-5.0) g/dL Urine Color Yellow Urine Appearance Clear (Clear) Urine pH 6.5 (5.0-8.0) Ur Specific [place] 1.017 (1.001-1.035) Urine Protein Trace H (Negative) Urine Glucose (UA) Negative (Negative) Urine Ketones Negative (Negative) Urine Blood Negative (Negative) Urine Nitrite Negative (Negative) Urine Bilirubin Negative (Negative) Urine Urobilinogen <2.0 (<2.0) mg/dL Ur Leukocyte Esterase Large H (Negative) Urine RBC 4 (0-5) /hpf Urine WBC 34 H (0-5) /hpf Ur Squamous Epith Cells 2 (0-4) /hpf Urine Mucus Few H (None) /hpf Influenza Type A (PCR) (Not Detectd) Influenza Type B (PCR) (Not Detectd) RSV (PCR) (Not Detectd) SARS-CoV-2 (PCR) (Not Detectd) 11/15/23 11/15/23 Range/Units 15:43 15:43 WBC (3.8-10.6) k/uL RBC (3.80-5.40) m/uL Hgb (11.4-16.0) gm/dL Hct (34.0-46.0) % MCV (80.0-100.0) fL MCH (25.0-35.0) pg MCHC (31.0-37.0) g/dL RDW (11.5-15.5) % Plt Count (150-450) k/uL MPV Neutrophils % % Lymphocytes % % Monocytes % % Eosinophils % % Basophils % % Neutrophils # (1.3-7.7) k/uL Lymphocytes # (1.0-4.8) k/uL Monocytes # (0-1.0) k/uL Eosinophils # (0-0.7) k/uL Basophils # (0-0.2) k/uL Sodium (137-145) mmol/L Potassium (3.5-5.1) mmol/L Chloride (98-107) mmol/L Carbon Dioxide (22-30) mmol/L Anion Gap mmol/L BUN (7-17) mg/dL Creatinine (0.52-1.04) mg/dL Est GFR (CKD-EPI)AfAm (>60 ml/min/1.73 sqM) Est GFR (CKD-EPI)NonAf (>60 ml/min/1.73 sqM) Glucose (74-99) mg/dL Calcium (8.4-10.2) mg/dL Total Bilirubin (0.2-1.3) mg/dL AST (14-36) U/L ALT (4-34) U/L Alkaline Phosphatase (38-126) U/L Troponin I <0.012 (0.000-0.034) ng/mL NT-Pro-B Natriuret Pep pg/mL Total Protein (6.3-8.2) g/dL Albumin (3.5-5.0) g/dL Urine Color Urine Appearance (Clear) Urine pH (5.0-8.0) Ur Specific [place] (1.001-1.035) Urine Protein (Negative) Urine Glucose (UA) (Negative) Urine Ketones (Negative) Urine Blood (Negative) Urine Nitrite (Negative) Urine Bilirubin (Negative) Urine Urobilinogen (<2.0) mg/dL Ur Leukocyte Esterase (Negative) Urine RBC (0-5) /hpf Urine WBC (0-5) /hpf Ur Squamous Epith Cells (0-4) /hpf Urine Mucus (None) /hpf Influenza Type A (PCR) Not Detected (Not Detectd) Influenza Type B (PCR) Not Detected (Not Detectd) RSV (PCR) Not Detected (Not Detectd) SARS-CoV-2 (PCR) Not Detected (Not Detectd) Disposition Clinical Impression: Weakness Disposition: ADMITTED IP TO THIS [facility] Condition: Fair Is patient prescribed a controlled substance at d/c from ED?: No Time of Disposition: 18:07
[2023-11-15] MEDS ORDERED: NALOXONE 0.4 MG/ML 1 ML VIAL IV PRN (18:12)
[2023-11-16 07:02] LABS: Basophils % (A) 0 %; Eosinophils # (A) 0.1 k/uL (0-0.7); Eosinophils % (A) 1 %; HCT 36.2 % (34.0-46.0); HGB 12.2 gm/dL (11.4-16.0); Lymphocytes # (A) 1.1 k/uL (1.0-4.8); Lymphocytes % (A) 18 %; MCH 32.7 pg (25.0-35.0); MCHC 33.6 g/dL (31.0-37.0); MCV 97.3 fL (80.0-100.0); Mean Platelet Volume 8.9; Monocytes # (A) 0.7 k/uL (0-1.0); Monocytes % (A) 12 %; Neutrophils # (A) 4.2 k/uL (1.3-7.7); Neutrophils % (A) 68 %; Platelet Count 182 k/uL (150-450); RBC 3.72 m/uL (3.80-5.40); RDW 12.6 % (11.5-15.5); WBC 6.2 k/uL (3.8-10.6)
[2023-11-16 07:33] LABS: African American GFR (CKD) >90 (>60 ml/min/1.73 sqM); Anion Gap 7 mmol/L; Blood Urea Nitrogen 17 mg/dL (7-17); Calcium 8.7 mg/dL (8.4-10.2); Carbon Dioxide 28 mmol/L (22-30); Chloride 106 mmol/L (98-107); Glucose 88 mg/dL (74-99); Non-African American GFR(CKD) >90 (>60 ml/min/1.73 sqM); Potassium 4.1 mmol/L (3.5-5.1); Sodium 141 mmol/L (137-145)
[2023-11-16] MEDS: ACETAMINOPHEN TAB 325 MG TAB PO PRN (09:03)
[2023-11-16 11:10] LABS: ALT 107 U/L (4-34); AST 217 U/L (14-36)
[2023-11-16] MEDS: clonazePAM 0.5 MG TAB PO SCH ×3 (11:50→20:27)
[2023-11-16] MEDS: FUROSEMIDE 20 MG TAB PO SCH (11:50)
[2023-11-16] MEDS: ASPIRIN 81 MG PO SCH (11:50)
--- NOTE | 2023-11-16 13:02 | US ---
EXAMINATION TYPE: US carotid duplex BILAT DATE OF EXAM: 11/16/2023 COMPARISON: NONE CLINICAL INDICATION: Female, 72 years old with history of stroke; Weakness, stroke TECHNIQUE: Carotid duplex ultrasound examination. Indirect Doppler criteria was utilized. FINDINGS: EXAM MEASUREMENTS: RIGHT: Peak Systolic Velocity (PSV) cm/sec ----- Right CCA: 74.5 ----- Right ICA: 80.7 ----- Right ECA: 67.8 ICA/CCA ratio: 1.08 RIGHT: End Diastole cm/sec ----- Right CCA: 19.5 ----- Right ICA: 17.0 ----- Right ECA: 10.3 LEFT: Peak Systolic Velocity (PSV) cm/sec ----- Left CCA: 75.0 ----- Left ICA: 84.9 ----- Left ECA: 84.9 ICA/CCA ratio: 0.94 LEFT: End Diastole cm/sec ----- Left CCA: 17.0 ----- Left ICA: 17.0 ----- Left ECA: 4.6 VERTEBRALS (direction of flow): Right Vertebral: Antegrade Left Vertebral: Antegrade Rhythm: Normal FIBERGLASS DOWEL DRAWING OPERATOR NOTES: Mild plaque bilateral bifurcations. No evidence of increased velocities IMPRESSION: No significant flow-limiting stenosis bilateral carotid bifurcations Criteria for Assigning % of Stenosis / Diameter reduction (Estimation based on the indirect measurements of the internal carotid artery velocities (ICA PSV). 1. Normal (no stenosis)=ICA PSV < 125 cm/s: ratio < 2.0: ICA EDV<40 cm/s. 2. Less than 50% stenosis=ICA PSV < 125 cm/s: ratio < 2.0: ICA EDV<40 cm/s. 3. 50 to 69% stenosis=ICA PSV of 125 to 230 cm/s: ration 2.0 ? 4.0: ICA EDV 40-100 cm/s. 4. Greater than 70% stenosis to near occlusion= ICA PSV > 230 cm/s: ratio > 4.0: ICA EDV > 100 cm/s. 5. Near occlusion= ICA PSV velocities may be low or undetectable: variable ratio and ICA EDV. 6. Total occlusion=unable to detect flow.
--- NOTE | 2023-11-16 13:28 | HP ---
HISTORY AND PHYSICAL CHIEF COMPLAINTS: Weakness and tremors of the left arm. HISTORY OF PRESENT ILLNESS: This is a 72-year-old woman with a past medical history of multiple medical problems, had generalized weakness for the last 2 days. The patient was sitting at home, has noted shaking tremors that started on the left upper arm and the patient came to [facility] and admitted for further evaluation and treatment. There is no history of any fever, rigors, or chills. CT scan did not show any acute stroke at this time. Neurology evaluation in progress. There is no history of any fever, rigor or chills. Urine showed possible UTI. There is no dysuria at this time. PAST MEDICAL HISTORY: Reviewed include GERD, DJD, Raynaud's, UTIs, rest of the history and rest of the chart is also reviewed. HOME MEDICATIONS: Lasix, doses and rest of medications reviewed. ALLERGIES: None. FAMILY HISTORY: No history of heart disease or strokes in the family. SOCIAL HISTORY: No history of smoking or alcohol. REVIEW OF SYSTEMS: A 14-point review is negative except as mentioned earlier. PHYSICAL EXAMINATION: VITAL SIGNS: Pulse 70, blood pressure 120/62, and respirations 16. HEENT: Conjunctivae normal. NECK: No jugular venous distention. CARDIOVASCULAR: S1, S2 muffled. RESPIRATIONS: Clear to auscultation. ABDOMEN: Soft, nontender. No masses palpable. LEGS: No edema, no swelling. NERVOUS SYSTEM: Diffusely weak, left more than the right and clonic jerks on the left upper arm present. Minimal weakness grade 4 present throughout the left SKIN: No ulcer, rash, bleeding. JOINTS: No active deforming arthropathy. LYMPHATICS: No lymphadenopathy LABORATORY DATA: WBC 6.2, rest of the labs are noted. AST is 271 and 107. ASSESSMENT: 1. Weakness and clonic jerks on the left side, rule out acute stroke. 2. Rule out acute UTI. 3. Elevated LFTs, rule out mild hepatitis. 4. GERD. 5. Hyperlipidemia. 6. DJD. 7. History of Raynaud. 8. History of recurrent UTI. 9. History of cholecystectomy. 10.Multiple medical issues. RECOMMENDATIONS: This 72-year-old woman presented with multiple complex medical issues. At this time, I recommend to continue the current medications, neuro checks will be performed. A full neurovascular workup for the possibility of acute stroke. I would recommend Neurology consultation, 2D echo, carotid Doppler. I would also recommend Ecotrin empirically. Otherwise, I would recommend DVT prophylaxis, empiric antibiotics, urine cultures, exact etiology of an underlying pathology of complex problems is unknown at this time. Prognosis remains guarded. See orders for details. Further recommendations to follow. MMODL / IJN: [id number] / MTDD
[2023-11-16] MEDS ORDERED: ALPRAZolam 0.5 MG TAB PO STA (15:10)
--- NOTE | 2023-11-16 15:59 | P.CNNES ---
History of Present Illness Consult date: 11/16/23 Requesting physician: Jalyn Watson Reason for Consult: Left arm tremor History of Present Illness: Patient is a 72-year-old right-handed female came to the hospital yesterday at 2:38 PM for new onset tremors of the left hand, and difficulty walking. Patient has history of depression, and is currently taking Zyprexa 5 mg in the morning, 15 mg at bedtime for last 6 months. Patient states that on Thursday, 2 days ago, she was fine in the morning. In the afternoon she started having tremors of the left hand, and difficulty walking. At baseline, she does not use any assistive device. She denies any neck pain, low back pain, any slurred speech, facial droop, problem with the vision, any focal paralysis, numbness or tingling. She does get headaches off and on, about 20 headaches a month lasting for an hour and resolves with Tylenol. Patient denies any tobacco or alcohol use. Denies diabetes or hypertension. Vital signs arrival blood pressure 120/71, pulse rate 88 temperature 98.8. Blood test shows normal CBC, Chem-7, with elevated hepatic panel with AST 271, ALT 107, troponin is negative, UA shows large amount of leukocyte esterase, 34 wbc's. Influenza screen, RSV and gil virus PCR negative. CT head revealed no acute intracranial abnormality seen. Mild chronic ethmoid sinus disease. Chest x-ray showed mild cardiomegaly and COPD. EKG shows sinus rhythm. Home medications includes simvastatin 21 g, clonazepam 0.5 mg 3 times a day, olanzapine 5 mg in the morning and 15 mg at bedtime, Paxil 30 mg, Lasix 20 mg as needed. Patient has been on simvastatin for almost a year. Review of Systems Constitutional: Denies chills, Denies fever Eyes: denies blurred vision, denies decreased vision, denies diplopia, denies pain Ears: deny: decreased hearing, ear discharge Ears, nose, mouth and throat: Reports headache, Denies sore throat, Denies vertigo Cardiovascular: Denies chest pain, Denies shortness of breath Respiratory: Reports excessive sputum, Denies cough Gastrointestinal: Denies abdominal pain, Denies diarrhea, Denies nausea, Denies vomiting Genitourinary: Denies mixed incontinence, Denies urgency Musculoskeletal: Denies low back pain, Denies myalgias, Denies neck pain Integumentary: Denies pruritus, Denies rash Neurological: Reports as per HPI, Reports tremors, Denies vertigo Psychiatric: Reports depression, Denies anxiety Endocrine: Denies fatigue, Denies weight change Hematologic/Lymphatic: Reports easy bruising, Denies easy bleeding Past Medical History Past Medical History: GERD/Reflux, Hyperlipidemia, Osteoarthritis (OA) Additional Past Medical History / Comment(s): Raynauds, varicose veins, hx frequent UTI's, osteopenia. Hiatal hernia. 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 FRANKO BSO was done for endometriosis and abnormal bleeding. History of Any Multi-Drug Resistant Organisms: None Reported Past Surgical History: Cholecystectomy, Heart Catheterization, Hysterectomy, Joint Replacement, Orthopedic Surgery, Tonsillectomy Additional Past Surgical History / Comment(s): D&C, Jonel knee replacements, jonel knee arthroscopy, jonel carpal tunnel, rt foot heel spur. FRANKO BSO in 2002. Cardiac loop recorder placed in 2017. Colonoscopy 2019. Past Anesthesia/Blood Transfusion Reactions: Family History of Problems w/ Anesthesia Additional Past Anesthesia/Blood Transfusion Reaction / Comment(s): sister-pt not sure of what problems Past Psychological History: Depression Smoking Status: Never smoker Past Alcohol Use History: Rare Past Drug Use History: None Reported - Past Family History Mother Family Medical History: No Reported History Father Family Medical History: Congestive Heart Failure (CHF), Myocardial Infarction (VT) Medications and Allergies Home Medications Medication Instructions Recorded Confirmed Type Simvastatin [Zocor] 20 mg PO HS 05/26/18 11/15/23 History clonazePAM 0.5 mg PO TID 09/04/20 11/15/23 History Furosemide [Lasix] 20 mg PO DIRECTED 11/15/23 11/15/23 History Ketoconazole 2% Shampoo [Nizoral] 1 applic TOPICAL WE 11/15/23 11/15/23 History OLANZapine 5 mg PO DAILY 11/15/23 11/15/23 History OLANZapine 15 mg PO HS 11/15/23 11/15/23 History PARoxetine HCL [Paxil] 30 mg PO HS 11/15/23 11/15/23 History Allergies Allergy/AdvReac Type Severity Reaction Status Date / Time No Known Allergies Allergy Verified 11/15/23 18:30 Physical Examination - Vital Signs Vital Signs: Vital Signs Temp Pulse Pulse Resp BP BP Pulse Ox 11/16/23 07:34 98.4 F 70 16 122/64 95 11/16/23 02:00 98.3 F 66 16 132/76 97 11/15/23 20:00 80 16 11/15/23 19:57 99.6 F 80 16 150/73 94 L 11/15/23 19:20 80 17 119/65 98 11/15/23 15:48 93 18 136/85 98 11/15/23 14:45 98.8 F 88 20 120/71 99 Intake and Output 11/15/23 11/16/23 11/16/23 22:59 06:59 14:59 Intake Total 590 Balance 590 Intake: Oral 590 Other: Voiding Method Toilet # Voids 1 2 Weight 58.967 kg Patient is an elderly female, very pleasant, in no acute distress. Patient is alert awake oriented to time place and person. She knows it is November and the year is 2023 and that she is in [facility] in [place]. Speech and language functions are normal. Patient can name and repeat very well. No aphasia or dysarthria. Attention, concentration and fund of knowledge is adequate. Patient is slightly masked face, decreased frequency of blinking. Patient is sitting in the recliner, somewhat tilted to her right side. On cranial nerve examination, pupils are equal, round and reacting to light, v isual almodovar are full on confrontation, with no neglect on double simultaneous stimulation. Extraocular muscles are intact with no nystagmus. Face is symmetric, tongue protrudes to the midline. Palatal elevation and sensation normal, hearing and shoulder shrug normal, facial sensation normal. On muscle strength testing, there is no pronator drift and the strength is normal in arms and legs distally and proximally, except hip flexion, which is about 3+4-bilaterally. Deep tendon reflexes are (right/left) biceps 1/2, brachioradialis 1/2, reflexes are very hypoactive in the lower limbs and plantars are flat bilaterally. Sensory to touch is equal with no neglect on double simultaneous stimulation. Cerebellar function showed no ataxia for tcemte-fl-rvit testing, although she is somewhat tremulous, jerky for bbzzgz-sd-petv testing left more than right. No dysdiadochokinesia. No ataxia for idhy-pm-ssvt testing on either side. Tone is moderately to severely increased bilaterally with evidence of cogwheeling and rigidity, and bulk of muscles is normal. No obvious resting tremors noticed on either side. Patient has somewhat arrhythmic, jerks of outstretched hands. Gait deferred.. On general examination, there is no carotid bruit or murmur, S1-S2 audible. Chest is clear on consultation. Abdomen is soft nontender. No organomegaly, bowel sounds present. Peripheral pulses are present. No peripheral edema. 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 Patient has developed difficulty with her mobility, and tremors of the hands, left more than right. Examination revealed moderate to severe rigidity with cogwheeling, bradykinesia. No tremors at rest noted. Unusual feature is acute onset, as she was fine Thursday morning, and symptoms started Thursday afternoon. She feels her symptoms have improved. * Depression * Elevated LFTs, possible due to simvastatin. Plan: * Patient has developed drug-induced parkinsonism. Patient takes Zyprexa for depression. I suggested patient discussed with her physician about probably switching to another antidepressant. In the meantime, we will start Cogentin 0.5 mg twice a day to help with extrapyramidal features/side effects of Zyprexa. * We will check B12, folate, TSH, CPK, ammonia, RPR. * Follow LFTs, and if still abnormal, would suggest stopping statins. * It appears, primary team has initiated CVA workup. * Carotid Doppler revealed no flow limiting stenosis of bilateral carotids. Antegrade flow in both vertebral arteries. * Neurology will follow clinically. Thank you for the consult.
--- NOTE | 2023-11-16 17:13 | MR ---
EXAMINATION TYPE: MR brain wo con DATE OF EXAM: 11/16/2023 COMPARISON: None HISTORY: Left arm and lower extremity twitching and numbness. CONTRAST: Performed utilizing 0 mL intravenous Gadavist gadolinium contrast. TECHNIQUE: Multiplanar, multiecho imaging on a 3.0 Rebecca magnet is performed through the brain. Stud y is performed within 24 hours of arrival to the hospital. The craniovertebral junction is normal. The pituitary is a rounded at the sella. There is some hypoe choic density within the posterior inferior sella. Underlying microadenoma should be considered. Cran iocaudal dimension is 1.0 cm. Diffusion-weighted imaging is performed. No abnormal hyperintensity is present to suggest an acute i ntracranial infarct or acute ischemic change. There are scattered punctate areas of hyperintensity on T2 and Inversion Recovery weighted sequences which are non-specific but can be related to microvascular ischemic changes. Ventricles and sulci are appropriate for the patient age. IMPRESSION: 1. Scattered deep white matter changes which are nonspecific. Differential diagnosis could include mi crovascular ischemic change, vasculitis, multiple sclerosis, Lyme disease, migraine headaches. 2. Prominent pituitary. Dedicated contrast pituitary MRI is recommended for additional evaluation. Mi croadenoma may be present.
[2023-11-16] MEDS ORDERED: DOCUSATE 100 MG CAP PO PRN (20:10)
[2023-11-16] MEDS: HEPARIN SODIUM,PORCINE 5,000 UNIT/ML 1 ML VIAL SQ SCH (20:27)
[2023-11-16] MEDS: OLANZapine 7.5 MG TAB PO SCH (20:27)
[2023-11-16] MEDS: ATORVASTATIN 10 MG TAB PO SCH (20:27)
[2023-11-16] MEDS: BENZTROPINE MESYLATE 0.5 MG TAB PO SCH (20:27)
[2023-11-16] MEDS: PARoxetine 10 MG TAB PO SCH (20:28)
[2023-11-17 03:15] LABS: Creatine Kinase 3643 U/L (26-186)
[2023-11-17] MEDS: SODIUM CHLORIDE 0.9% 1,000 ML IV SCH ×2 (03:56→20:09)
[2023-11-17] MEDS: HEPARIN SODIUM,PORCINE 5,000 UNIT/ML 1 ML VIAL SQ SCH ×2 (08:56→21:14)
[2023-11-17] MEDS: ASPIRIN 81 MG PO SCH (08:56)
[2023-11-17] MEDS: FUROSEMIDE 20 MG TAB PO SCH (08:56)
[2023-11-17] MEDS: BENZTROPINE MESYLATE 0.5 MG TAB PO SCH ×2 (08:57→21:14)
[2023-11-17] MEDS: clonazePAM 0.5 MG TAB PO SCH ×3 (08:57→21:14)
[2023-11-17] MEDS: OLANZapine 5 MG TAB PO SCH (08:58)
[2023-11-17] MEDS: ACETAMINOPHEN TAB 325 MG TAB PO PRN (09:05)
[2023-11-17 10:47] LABS: Basophils # (A) 0.02 X 10*3/uL (0.00-0.10); Basophils % (A) 0.4 %; Eosinophils # (A) 0.11 X 10*3/uL (0.04-0.35); Eosinophils % (A) 2.3 %; HCT 35.6 % (37.2-46.3); Lymphocytes # (A) 1.25 X 10*3/uL (0.90-5.00); Lymphocytes % (A) 26.4 %; MCH 30.9 pg (27.0-32.0); MCHC 30.9 g/dL (32.0-37.0); Mean Platelet Volume 10.5 FL (9.5-12.2); Monocytes # (A) 0.58 X 10*3/uL (0.20-1.00); Monocytes % (A) 12.3 %; NRBC Per 100 WBC 0 X 10*3/uL (0.00-0.01); Neutrophils # (A) 2.76 X 10*3/uL (1.80-7.70); Neutrophils % (A) 58.4 %; Platelet Count 186 X 10*3/uL (140-440); RBC 3.56 X 10*6/uL (4.10-5.20); RDW 12.4 % (11.5-14.5); WBC 4.73 X 10*3/uL (4.50-10.00)
[2023-11-17 11:08] LABS: ALT 82 U/L (8-44); AST 119 U/L (13-35); Albumin 3.3 g/dL (3.8-4.9); Albumin/Globulin Ratio 1.74 Ratio (1.60-3.17); Alkaline Phosphatase 74 U/L (41-126); Blood Urea Nitrogen 20.1 mg/dL (9.0-27.0); Calcium 8.6 mg/dL (8.7-10.3); Chloride 107 mmol/L (96-109); Globulin 1.9 g/dL (1.6-3.3); Glucose 90 mg/dL (70-110); Sodium 144 mmol/L (135-145); Total Bilirubin 0.4 mg/dL (0.3-1.2); Total Protein 5.2 g/dL (6.2-8.2)
[2023-11-17] MEDS ORDERED: polyethylene glycoL 3350 17 GM POWD.PACK PO PRN (13:33)
--- NOTE | 2023-11-17 16:28 | CA ---
Transthoracic Echo Report Name: Shelia Mclaughlin Age: 72 Gender: F : 1950 Exam Date: 11/17/2023 14:56 Exam Location: [facility] Ht (in): 60 Wt (lb): 130 Ordering Physician: Geovani Linton MD Attending/Referring Phys: Occupational Analyst Anu Ballard RDCS Procedure CPT: Indications: stroke Cardiac Hx: Technical Quality: Fair Contrast 1: Total Dose (mL): Contrast 2: Total Dose (mL): MEASUREMENTS (Male / Female) Normal Values 2D ECHO LV Diastolic Diameter PLAX 4.0 cm 4.2 - 5.9 / 3.9 - 5.3 cm LV Systolic Diameter PLAX 2.7 cm IVS Diastolic Thickness 1.2 cm 0.6 - 1.0 / 0.6 - 0.9 cm LVPW Diastolic Thickness 1.5 cm 0.6 - 1.0 / 0.6 - 0.9 cm LV Relative Wall Thickness 0.7 LA Volume 71.6 cm??? 18 - 58 / 22 - 52 cm??? LA Volume Index 44.9 cm???/m??? 16 - 28 cm???/m??? M-MODE Aortic Root Diameter MM 3.1 cm LA Systolic Diameter MM 4.6 cm LA Ao Ratio MM 1.5 AV Cusp Separation MM 2.1 cm DOPPLER AV Peak Velocity 160.6 cm/s AV Peak Gradient 10.3 mmHg AV Mean Velocity 115.0 cm/s AV Mean Gradient 5.8 mmHg AV Velocity Time Integral 31.5 cm LVOT Peak Velocity 117.7 cm/s LVOT Peak Gradient 5.5 mmHg LVOT Velocity Time Integral 21.3 cm MV Area PHT 3.7 cm??? Mitral E Point Velocity 77.7 cm/s Mitral A Point Velocity 133.7 cm/s Mitral E to A Ratio 0.6 MV Deceleration Time 205.1 ms MV E' Velocity 7.2 cm/s Mitral E to MV E' Ratio 10.8 TR Peak Velocity 233.1 cm/s TR Peak Gradient 21.7 mmHg Right Ventricular Systolic Press 26.5 mmHg FINDINGS Left Ventricle Mildly increased left ventricular wall thickness. Left ventricular cavity size normal. Normal left ventricular systolic function with no obvious regional wall motion abnormalities. Left ventricular ejection fraction is estimated at 55-60 %. Right Ventricle Normal right ventricular size and function. Right ventricular systolic pressure within normal limits. Right Atrium Normal right atrial size. Left Atrium Moderately increased left atrial volume. Mildly increased left atrial area. Mitral Valve Structurally normal mitral valve. Mitral valve thickened. Mild mitral annular calcification. Mild mitral regurgitation. Aortic Valve Trileaflet aortic valve. Thickened aortic valve without stenosis. Trace aortic regurgitation. Tricuspid Valve Structurally normal tricuspid valve. Mild tricuspid regurgitation. Pulmonic Valve Structurally normal pulmonic valve. Trace pulmonic regurgitation. Pericardium No pericardial effusion. Aorta Normal size aortic root and proximal ascending aorta. CONCLUSIONS Normal LV systolic function Mitral annular calcification with mild mitral regurgitation Previewed by: Dr. Alex Juarez MD (Electronically Signed) Final Date: 17 November 2023 16:27
[2023-11-17] MEDS: ATORVASTATIN 10 MG TAB PO SCH (21:14)
[2023-11-17] MEDS: OLANZapine 7.5 MG TAB PO SCH (21:14)
[2023-11-17] MEDS: PARoxetine 10 MG TAB PO SCH (21:14)
[2023-11-18] MEDS: SODIUM CHLORIDE 0.9% 1,000 ML IV SCH ×2 (03:15→19:42)
[2023-11-18] MEDS: HEPARIN SODIUM,PORCINE 5,000 UNIT/ML 1 ML VIAL SQ SCH ×2 (07:53→21:07)
[2023-11-18] MEDS: BENZTROPINE MESYLATE 0.5 MG TAB PO SCH ×2 (07:54→21:07)
[2023-11-18] MEDS: ASPIRIN 81 MG PO SCH (07:54)
[2023-11-18] MEDS: FUROSEMIDE 20 MG TAB PO SCH (07:54)
[2023-11-18] MEDS: clonazePAM 0.5 MG TAB PO SCH ×3 (07:54→21:07)
[2023-11-18] MEDS: OLANZapine 5 MG TAB PO SCH (07:55)
--- NOTE | 2023-11-18 09:18 | PN ---
PROGRESS NOTE DATE OF SERVICE: 11/17/2023 SUBJECTIVE: This 72-year-old woman was admitted with weakness and significant jerks, found to have Parkinson's, seen by Neurology. MRI has been done, which showed scattered deep white matter changes, otherwise prominent pituitary. PAST MEDICAL HISTORY: Reviewed. PHYSICAL EXAMINATION: VITAL SIGNS: Blood pressure 112/60, respirations 17. HEENT: Conjunctivae normal. NECK: No jugular venous distention. CARDIOVASCULAR: S1, S2 muffled. RESPIRATIONS: Diminished at the bases. ABDOMEN: Soft. NERVOUS SYSTEM: No focal deficits. LABORATORY DATA: Creatine kinase is 3643. ASSESSMENT: 1. Weakness and chronic jerks on the left side, possibly acute on chronic parkinsonism. 2. Possible TIA. 3. Rule out acute UTI. 4. Acute rhabdomyolysis, possibly. 5. Elevated LFTs, possibly mild hepatitis. 6. Gastroesophageal reflux disease. 7. Hyperlipidemia. 8. Gait dysfunction. 9. DJD. 10.History of Raynaud's. 11.History of recurrent UTI. 12.History of cholecystectomy. 13.History of multiple medical issues. RECOMMENDATIONS: Recommended to continue current management, continue symptomatic treatment. Cultures are negative so far. PT/OT evaluation. Neurology input appreciated. Guarded prognosis. Further recommendations to follow. MMODL / IJN: [id number] /
--- NOTE | 2023-11-18 09:40 | P.PN ---
Subjective Progress Note Date: 11/17/23 Patient was seen for a follow-up. Patient is sitting comfortably in the recliner. Patient states that she is feeling better. Denies any side effect of medication. Objective - Vital Signs Vital signs: Vital Signs Temp 98.6 F 11/17/23 12:40 Pulse 62 11/17/23 12:40 Resp 17 11/17/23 12:40 BP 112/67 11/17/23 12:40 Pulse Ox 97 11/17/23 12:40 FiO2 Intake & Output 11/16/23 11/17/23 11/17/23 18:59 06:59 18:59 Output Total 550 Balance -550 Output: Urine 550 Other: Voiding Method Toilet Toilet External Catheter # Voids 1 1 # Bowel Movements 1 - Exam Patient's mentation appears better. Patient is not as rigid. She is not as b radykinetic. No resting tremors. Tremors of outstretched hands improved. Tone is mild to moderately increased bilaterally, which is also better as compared to yesterday. - Labs CBC & Chem 7: 11/17/23 05:34 11/17/23 05:34 Labs: Abnormal Lab Results - Last 24 Hours (Table) 11/16/23 11/17/23 11/17/23 Range/Units 16:01 05:34 05:34 RBC 3.56 L (4.10-5.20) X 10*6/uL Hgb 11.0 L (12.0-15.0) g/dL Hct 35.6 L (37.2-46.3) % MCV 100.0 H (80.0-97.0) FL MCHC 30.9 L (32.0-37.0) g/dL BUN/Creatinine Ratio 33.50 H (12.00-20.00) Ratio Calcium 8.6 L (8.7-10.3) mg/dL AST 119 H (13-35) U/L ALT 82 H (8-44) U/L Creatine Kinase 3643 A* (26-186) U/L Total Protein 5.2 L (6.2-8.2) g/dL Albumin 3.3 L (3.8-4.9) g/dL Microbiology - Last 24 Hours (Table) 11/16/23 11:27 Blood Culture - Preliminary Blood Assessment and Plan Assessment: * 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 Patient has developed difficulty with her mobility, and tremors of the hands, left more than right. Examination revealed moderate to severe rigidity with cogwheeling, bradykinesia. No tremors at rest noted. Unusual feature is acute onset, as she was fine Thursday morning, and symptoms started Thursday afternoon. She feels her symptoms have improved. * Depression * Elevated LFTs, possible due to simvastatin. Plan: * Patient has developed drug-induced parkinsonism. Patient takes Zyprexa for depression. I suggested patient discuss with her physician about probably switching to another low potency antipsychotic on an antidepressant. In the meantime, we will start Cogentin 0.5 mg twice a day to help with extrapyramidal features/side effects of Zyprexa. Patient's parkinsonian features improved since starting on Cogentin. * B12 717, folate 13.8, TSH 1.40, CPK 3643, ammonia 16, RPR nonreactive. Need to repeat CPK. * Repeat LFTs are improving, with AST 119, ALT 82, and if still abnormal, would suggest stopping statins. * It appears, primary team has initiated CVA workup. * MRI brain revealed scattered deep white matter changes, which are nonspecific. Differential diagnosis could include microvascular ischemic change, vasculitis, multiple sclerosis, Lyme disease, migraine headaches. Prominent pituitary. Dedicated contrast pituitary MRI is recommended for additional evaluation. Microadenoma may be present. This may be followed up as an outpatient. * 2-D echo revealed normal left ventricular systolic function, with EF 55-60%. No regional wall motion abnormalities. Moderately increased left atrial volume. No significant valvular abnormalities. * Continue aspirin 81 mg and Lipitor 10 mg. * Carotid Doppler revealed no flow limiting stenosis of bilateral carotids. Antegrade flow in both vertebral arteries. * Neurologically clear otherwise.
[2023-11-18 10:47] LABS: Basophils # (A) 0.03 X 10*3/uL (0.00-0.10); Basophils % (A) 0.7 %; Eosinophils # (A) 0.13 X 10*3/uL (0.04-0.35); HCT 36.5 % (37.2-46.3); HGB 11.4 g/dL (12.0-15.0); Lymphocytes # (A) 1.18 X 10*3/uL (0.90-5.00); Lymphocytes % (A) 27.6 %; MCH 31.7 pg (27.0-32.0); MCHC 31.2 g/dL (32.0-37.0); MCV 101.4 FL (80.0-97.0); Mean Platelet Volume 11.2 FL (9.5-12.2); Monocytes # (A) 0.44 X 10*3/uL (0.20-1.00); Monocytes % (A) 10.3 %; NRBC Per 100 WBC 0 X 10*3/uL (0.00-0.01); Neutrophils # (A) 2.49 X 10*3/uL (1.80-7.70); Neutrophils % (A) 58.2 %; Platelet Count 183 X 10*3/uL (140-440); RDW 12.3 % (11.5-14.5); WBC 4.28 X 10*3/uL (4.50-10.00)
[2023-11-18 10:58] LABS: Blood Urea Nitrogen 16.5 mg/dL (9.0-27.0); Calcium 8.8 mg/dL (8.7-10.3); Carbon Dioxide 26.6 mmol/L (21.6-31.8); Chloride 109 mmol/L (96-109); Glucose 87 mg/dL (70-110); Potassium 4.3 mmol/L (3.5-5.5); Sodium 145 mmol/L (135-145)
[2023-11-18 13:02] VITALS: RESP 16
[2023-11-18] MEDS ORDERED: KETOCONAZOLE 2% SHAMPOO 1 APPLIC/ML TOPICAL SCH (21:00)
[2023-11-18] MEDS: OLANZapine 7.5 MG TAB PO SCH (21:06)
[2023-11-18] MEDS: ATORVASTATIN 10 MG TAB PO SCH (21:07)
[2023-11-18] MEDS: PARoxetine 10 MG TAB PO SCH (21:07)
--- NOTE | 2023-11-19 05:55 | P.PN ---
Subjective Progress Note Date: 11/18/23 This is a 72-year-old female who was recently admitted with generalized weakness and significant jerks mostly on the left side found to have parkinsonian tremors possibly secondary to medication effect with neurology following closely. MRI of the brain was done showing scattered deep white matter changes otherwise a prominent pituitary. Patient with generalized weakness being evaluated by physical therapy recommending subacute rehab in case management following insurance authorization has been submitted and pending. Patient is afebrile with no reported chest pain or shortness of breath. Patient is tolerating diet and denies nausea or vomiting. Patient reports her tremors and shaking has imp roved. Review of systems: Constitutional: No reports of fatigue, fever, or chills Cardiovascular: No reports of chest pain or palpitations Respiratory: No reports of shortness of breath or cough GI: reports of nausea, no reports of of vomiting, : No reports of dysuria or retention Neurovascular: reports of generalized weakness All medications have been reviewed PHYSICAL EXAMINATION: GENERAL: The patient is alert and oriented x4, Well developed, well nourished. Elderly-appearing HEENT: Pupils are round and equally reacting to light. EOMI. no scleral icterus. No conjunctival pallor. Normocephalic, atraumatic. No pharyngeal erythema. No thyromegaly. CARDIOVASCULAR: S1 and S2 muffled PULMONARY: diminished breath sounds bilaterally with no wheezing or rhonchi noted. ABDOMEN: soft. Nontender on exam. non-distended, normoactive bowel sounds. No palpable organomegaly. MUSCULOSKELETAL: No joint swelling or deformity. EXTREMITIES: No cyanosis, clubbing, or pedal edema. NEUROLOGICAL: Gross neurological examination did not reveal any focal deficits. Diffuse weakness SKIN: No rashes. Assessment: Weakness and chronic jerks on the left side possibly acute on chronic Parkinson, more suspicious of medication effect per neurology Possible TIA versus CVA, rule out Possible acute urinary tract infection, ruled out, cultures were negative Acute rhabdomyolysis, possibly Elevated LFTs, trending down GERD Hyperlipidemia History of Raynaud's disease Osteoarthritis history GI prophylaxis DVT prophylaxis Full code Plan: Recommend to continue with current medications and management with neurology following. Patient has undergone a workup with concerns of medication effect of her antidepressants. Patient was seen and evaluated by physical therapy recommending rehab for strength and mobility and insurance authorization went peer to peer and was denied recommending she can have outpatient rehab and/or look into long-term care Encouraged increased activity as tolerated with case management following and will obtain a walker to assist with ADLs. Patient was previously using a cane although gait is somewhat unsteady with this Continue to monitor for improvement in symptoms and adjust medications accordingly. Patient to follow-up with primary care provider regarding these medication adjustments and tapering Working on discharge planning and patient will be discharged in the next 24 hours The impression and plan of care has been dictated by Clara Espinal, nurse practitioner as directed. Dr. Royer MD I have performed a history and examination and MDM of this patient, discussed the same with the dictator, and agree with the dictator's assessment and plan as written ,documented as a scribe. Based on total visit time, I have performed more than 50% of the visit. Any additional findings or plans will be noted. Objective - Vital Signs Vital signs: Vital Signs Temp 98.2 F 11/18/23 12:20 Pulse 82 11/18/23 12:20 Resp 16 11/18/23 12:20 BP 103/63 11/18/23 12:20 Pulse Ox 95 11/18/23 12:20 FiO2 Intake & Output 11/17/23 11/18/23 11/18/23 18:59 06:59 18:59 Intake Total 360 Output Total 0 650 Balance 0 -290 Intake: Oral 360 Output: Urine 0 650 Straight 650 Other: Voiding Method External Catheter External Catheter # Voids 1 1 # Bowel Movements 1 1 1 - Labs CBC & Chem 7: 11/18/23 05:28 11/18/23 05:28 Labs: Abnormal Lab Results - Last 24 Hours (Table) 11/18/23 11/18/23 Range/Units 05:28 05:28 WBC 4.28 L (4.50-10.00) X 10*3/uL RBC 3.60 L (4.10-5.20) X 10*6/uL Hgb 11.4 L (12.0-15.0) g/dL Hct 36.5 L (37.2-46.3) % MCV 101.4 H (80.0-97.0) FL MCHC 31.2 L (32.0-37.0) g/dL BUN/Creatinine Ratio 27.50 H (12.00-20.00) Ratio Microbiology - Last 24 Hours (Table) 11/16/23 19:05 Urine Culture - Final Urine,Voided 11/16/23 11:27 Blood Culture - Preliminary Blood
[2023-11-19] MEDS: ASPIRIN 81 MG PO SCH (10:07)
[2023-11-19] MEDS: clonazePAM 0.5 MG TAB PO SCH (10:07)
[2023-11-19] MEDS: HEPARIN SODIUM,PORCINE 5,000 UNIT/ML 1 ML VIAL SQ SCH (10:08)
[2023-11-19] MEDS: FUROSEMIDE 20 MG TAB PO SCH (10:08)
[2023-11-19] MEDS: BENZTROPINE MESYLATE 0.5 MG TAB PO SCH (10:08)
[2023-11-19] MEDS: OLANZapine 5 MG TAB PO SCH (10:08)
[2023-11-19] MEDS: SODIUM CHLORIDE 0.9% 1,000 ML IV SCH (10:30)
[2023-11-19 12:09] VITALS: BP 104/65; PULSE 79; TEMP 98.7
--- NOTE | 2023-11-20 09:41 | P.PN ---
Subjective Progress Note Date: 11/19/23 Patient was seen for a follow-up. Patient is laying comfortably in the bed. Patient states that she is feeling better. Denies any side effect of medication. Regarding tremors, patient states "they're good". Objective - Vital Signs Vital signs: Vital Signs Temp 98.7 F 11/19/23 11:30 Pulse 79 11/19/23 11:30 Resp 16 11/19/23 11:30 BP 104/65 11/19/23 11:30 Pulse Ox 98 11/19/23 11:30 FiO2 Intake & Output 11/18/23 11/19/23 11/19/23 18:59 06:59 18:59 Intake Total 800 Balance 800 Intake: Oral 800 Other: Voiding Method Toilet Toilet # Voids 1 1 # Bowel Movements 1 - Exam Patient's mentation appears better. Patient is not as rigid. She is not as bradykinetic. No resting tremors. Patient has mild tremors of outstretched hands. Tone is mild to moderately increased bilaterally, which is also better as compared to the initial examination. 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 Patient has developed difficulty with her mobility, and tremors of the hands, left more than right. Examination revealed moderate to severe rigidity with cogwheeling, bradykinesia. No tremors at rest noted. Unusual feature is acute onset, as she was fine Thursday morning, and symptoms started Thursday afternoon. She feels her symptoms have improved. * Depression * Elevated LFTs, possible due to simvastatin. Plan: * Patient has developed drug-induced parkinsonism. Patient takes Zyprexa for depression. I suggested patient discuss with her physician about probably switching to another low potency antipsychotic on an antidepressant. In the meantime, we will start Cogentin 0.5 mg twice a day to help with extrapyramidal features/side effects of Zyprexa. Patient's parkinsonian features improved since starting on Cogentin. * B12 717, folate 13.8, TSH 1.40, CPK 3643, ammonia 16, RPR nonreactive. Repeat CPK looks like was canceled. * Repeat LFTs are improving, with AST 119, ALT 82, and if still abnormal, would suggest stopping statins. * It appears, primary team has initiated CVA workup. * MRI brain revealed scattered deep white matter changes, which are nonspecific. Differential diagnosis could include microvascular ischemic change, vasculitis, multiple sclerosis, Lyme disease, migraine headaches. Prominent pituitary. Dedicated contrast pituitary MRI is recommended for additional evaluation. Microadenoma may be present. This may be followed up as an outpatient. * 2-D echo revealed normal left ventricular systolic function, with EF 55-60%. No regional wall motion abnormalities. Moderately increased left atrial volume. No significant valvular abnormalities. * Continue aspirin 81 mg and Lipitor 10 mg. * Carotid Doppler revealed no flow limiting stenosis of bilateral carotids. Antegrade flow in both vertebral arteries. * Neurologically clear otherwise.
--- NOTE | 2023-11-20 15:14 | P.DS ---
Providers Date of admission: 11/16/23 11:20 Expected date of discharge: 11/19/23 Attending physician: Geovani Linton Consults: 11/15/23 18:12 Consult Physician Routine Consulting Provider: Stalin Ortega Consult Reason/Comments: left arm tremor Do you want consulting provider notified?: Yes Primary care physician: Fitz Ledesma [facility] Course: Final diagnosis Weakness and chronic jerks on the left side possibly acute on chronic Parkinson, more suspicious of medication effect per neurology Possible TIA versus CVA, ruled out Possible acute urinary tract infection, ruled out, cultures were negative Acute rhabdomyolysis, possibly Elevated LFTs, trending down GERD Hyperlipidemia History of Raynaud's disease Osteoarthritis history GI prophylaxis DVT prophylaxis Full code Discharge disposition Patient is being discharged in a stable condition with guarded prognosis to home with home care. Patient will follow-up with Dr. Ledesma in the outpatient setting upon discharge. Patient is to continue with current medications as mentioned below close outpatient follow-up with neurology as scheduled. Total time taken is greater than 35 minutes. Hospital course This is a 72-year-old female who was recently admitted with generalized weakness and left-sided twitching with jerking likely parkinsonian effect from medications including her antidepressant. Patient underwent neurological evaluation including MRI which was negative and made adjustments to medications and also recommends slowly tapering off these medications and continuing with Cogentin and close outpatient follow-up with neurology. Patient was weak and evaluated by physical therapy and required insurance authorization which went peer to peer and was denied stating she could go to long-term care or have home care with rehab in the outpatient setting. Patient will be going home and has been instructed to follow-up with primary care provider this week. Patient may need referral from PCP for neurology evaluation. Currently no reports of chest pain, shortness of breath, or palpitations. Patient is afebrile. No reports of nausea or vomiting and patient is tolerating diet. Patient will be discharged home today. Physical exam: Gen: This is a 72-year-old female who is awake, alert and oriented 3, well- developed, well-nourished HEENT: Head is atraumatic, normocephalic. Pupils equal, round. Sclerae is anicteric. NECK: Supple. No JVD. No lymphadenopathy. No thyromegaly. LUNGS: Clear to auscultation. No wheezes or rhonchi. No intercostal retractions. HEART: Regular rate and rhythm. No murmur. ABDOMEN: Soft. Bowel sounds are present. No masses. No tenderness. EXTREMITIES: No pedal edema. No calf tenderness. NEUROLOGICAL: Patient is awake, alert and oriented x3. Cranial nerves 2 through 12 are grossly intact. diffusely weak Please refer to medication reconciliation sheet for a list of medications. The impression and plan of care has been dictated by Clara Espinal, Nurse Practitioner as directed. Dr. Royer MD I have performed a history and examination and MDM of this patient, discussed the same with the dictator, and agree with the dictator's assessment and plan as written ,documented as a scribe. Based on total visit time, I have performed more than 50% of the visit. Patient Condition at Discharge: Fair Plan - Discharge Summary Discharge Rx Participant: No New Discharge Prescriptions: New Furosemide [Lasix] 20 mg PO DAILY #30 tab polyethylene glycoL 3350 [Miralax] 17 gm PO DAILY #30 packet Aspirin 81 mg PO DAILY #30 tab Benztropine Mesylate [Cogentin] 0.5 mg PO BID #60 tablet Acetaminophen Tab [Tylenol] 650 mg PO Q6H #20 tab Continue Simvastatin [Zocor] 20 mg PO HS clonazePAM 0.5 mg PO TID OLANZapine 15 mg PO HS PARoxetine HCL [Paxil] 30 mg PO HS OLANZapine 5 mg PO DAILY Ketoconazole 2% Shampoo [Nizoral] 1 applic TOPICAL WE Discontinued Furosemide [Lasix] 20 mg PO DIRECTED Discharge Medication List Simvastatin [Zocor] 20 mg PO HS 05/26/18 [History] clonazePAM 0.5 mg PO TID 09/04/20 [History] Ketoconazole 2% Shampoo [Nizoral] 1 applic TOPICAL WE 11/15/23 [History] OLANZapine 5 mg PO DAILY 11/15/23 [History] OLANZapine 15 mg PO HS 11/15/23 [History] PARoxetine HCL [Paxil] 30 mg PO HS 11/15/23 [History] Acetaminophen Tab [Tylenol] 650 mg PO Q6H #20 tab 11/19/23 [Rx] Aspirin 81 mg PO DAILY #30 tab 11/19/23 [Rx] Benztropine Mesylate [Cogentin] 0.5 mg PO BID #60 tablet 01/11/24 [Rx] Furosemide [Lasix] 20 mg PO DAILY #30 tab 11/19/23 [Rx] polyethylene glycoL 3350 [Miralax] 17 gm PO DAILY #30 packet 11/19/23 [Rx] Follow up Appointment(s)/Referral(s): [facility], [NON-STAFF] - 1 Week Fitz Ledesma MD [Primary Care Provider] - 11/26/23 10:00 am Jer Eastman MD [Medical Doctor] - 1 Week (The office requires you to call to make this appointment.) Patient Instructions/Handouts: Tremors (DC) Activity/Diet/Wound Care/Special Instructions: Activity Limited until follow-up Follow-up with primary care provider on discharge discuss with primary care provider regarding adjustments to medications and weaning off current antidepressants due to side effects Discharge Disposition: HOME WITH HOME HEALTH SERVICES
== END 2023-11-19 14:50 | disposition home health service (06) | DRG 57 ==
LOC: EC 14:38 → 5NMEDONC 18:23 → OBSVTOIN 11-16 11:20
PROVIDERS: ADMIT Hospitalist; ATTEND Hospitalist
DX: G21.19 Other drug induced secondary parkinsonism (principal); M62.82 Rhabdomyolysis; Z74.09 Other reduced mobility; F32.A Depression, unspecified; J44.9 Chronic obstructive pulmonary disease, unspecified; Z11.52 Encounter for screening for COVID-19; T43.595A Adverse effect of other antipsychotics and neuroleptics, initial encounter; E78.5 Hyperlipidemia, unspecified; X58.XXXA Exposure to other specified factors, initial encounter; I73.00 Raynaud's syndrome without gangrene; J32.2 Chronic ethmoidal sinusitis; K21.9 Gastro-esophageal reflux disease without esophagitis; M19.90 Unspecified osteoarthritis, unspecified site; R74.01 Elevation of levels of liver transaminase levels; I08.3 Combined rheumatic disorders of mitral, aortic and tricuspid valves; M85.80 Other specified disorders of bone density and structure, unspecified site; Z87.440 Personal history of urinary (tract) infections; Z90.49 Acquired absence of other specified parts of digestive tract; Z90.710 Acquired absence of both cervix and uterus; Z91.81 History of falling; Z96.653 Presence of artificial knee joint, bilateral; Z79.899 Other long term (current) drug therapy; Z82.49 Family history of ischemic heart disease and other diseases of the circulatory system; Z87.01 Personal history of pneumonia (recurrent)
CPT/HCPCS: 36415; 70450; 70551; 71046; 80048; 80053; 81001; 82140; 82550; 82607; 82746; 83880; 84443; 84450; 84460; 84484; 85025; 85652; 86140; 86780; 87040; 87086; 87636; 93005; 93306; 93880; 99285

== ENCOUNTER 2024-07-06 12:42 | Emergency (ER) | payer MEDICARE ==
[2024-07-06 13:10] LABS: Basophils % (A) 0 %; Eosinophils # (A) 0.1 k/uL (0-0.7); Eosinophils % (A) 1 %; HCT 37.6 % (34.0-46.0); HGB 12.5 gm/dL (11.4-16.0); Lymphocytes # (A) 0.4 k/uL (1.0-4.8); Lymphocytes % (A) 7 %; MCH 32.3 pg (25.0-35.0); MCHC 33.3 g/dL (31.0-37.0); MCV 96.9 fL (80.0-100.0); Mean Platelet Volume 7.4; Monocytes # (A) 0.4 k/uL (0-1.0); Monocytes % (A) 6 %; Neutrophils # (A) 5.7 k/uL (1.3-7.7); Neutrophils % (A) 86 %; Platelet Count 183 k/uL (150-450); RBC 3.88 m/uL (3.80-5.40); RDW 12.5 % (11.5-15.5); WBC 6.6 k/uL (3.8-10.6)
[2024-07-06] MEDS: ACETAMINOPHEN SUPPOSITORY 650 MG SUPP RECTAL STA (13:11)
[2024-07-06] MEDS: LORazepam 2 MG/ML INJ IV STA (13:11)
[2024-07-06] MEDS: SODIUM CHLORIDE 0.9% 1,000 ML IV ONE ×2 (13:13→13:14)
--- NOTE | 2024-07-06 13:21 | XR ---
EXAMINATION TYPE: XR chest 1V portable DATE OF EXAM: 07/06/2024 1:04 PM CLINICAL INDICATION: Female, 73 years old with history of febrile, ams; COMPARISON: Chest radiographs from 11/15/2023 TECHNIQUE: XR chest 1V portable Frontal view of the chest. FINDINGS: Lungs/Pleura: There is flattening of the diaphragm with increased lucency of the lungs. No evidence o f pneumothorax, pleural effusion or focal consolidation. Pulmonary vascularity: Unremarkable. Heart/mediastinum: Cardiomediastinal silhouette is unremarkable. A loop recorder projects over the le ft thorax over the heart. Musculoskeletal: No acute osseous pathology. Other findings: None IMPRESSION: 1. No acute cardiopulmonary disease process. 2. COPD changes.
--- NOTE | 2024-07-06 13:22 | XR ---
EXAMINATION TYPE: XR pelvis AP view DATE OF EXAM: 07/06/2024 1:04 PM CLINICAL INDICATION: Female, 73 years old with history of febrile, ams; COMPARISON: None TECHNIQUE: XR pelvis AP view, examined in a single projection. FINDINGS: There is no evidence of fracture or dislocation. There is no soft tissue abnormality. No a bnormal calcifications are present. The spine appears intact. The hips appear intact. Osteophyte form ation of the superior acetabulum bilaterally with mild joint space narrowing. IMPRESSION: No acute osseous pathology. Mild degeneration changes of the hip.
[2024-07-06 13:23] LABS: INR 1.1 (<1.2); Partial Thromboplastin Time 24.1 sec (22.0-30.0); Prothrombin Time 11.5 sec (10.0-12.5)
[2024-07-06 13:29] LABS: Lactic Acid, Venous 1.1 mmol/L (0.7-2.0)
[2024-07-06 13:31] LABS: ALT 37 U/L (4-34); African American GFR (CKD) >90 (>60 ml/min/1.73 sqM); Albumin 3.8 g/dL (3.5-5.0); Alcohol <10 mg/dL; Anion Gap 5 mmol/L; Blood Urea Nitrogen 18 mg/dL (7-17); Carbon Dioxide 27 mmol/L (22-30); Chloride 107 mmol/L (98-107); Creatine Kinase 814 U/L (30-135); Glucose 108 mg/dL (74-99); Non-African American GFR(CKD) 87 (>60 ml/min/1.73 sqM); Sodium 139 mmol/L (137-145); Total Bilirubin 1.1 mg/dL (0.2-1.3); Total Protein 6.4 g/dL (6.3-8.2)
[2024-07-06 13:40] LABS: AST 74 U/L (14-36); Alkaline Phosphatase 77 U/L (38-126); Potassium 4.2 mmol/L (3.5-5.1)
[2024-07-06 13:43] LABS: VBG PH 7.41 (7.31-7.41)
[2024-07-06 13:51] LABS: Amorphous Sediment,Urine Moderate /hpf; Appearance,Urine Cloudy (Clear); Bilirubin,Urine Negative (Negative); Blood,Urine Negative (Negative); Color,Urine Light Yellow; Glucose,Urine (UA) Negative (Negative); Ketones,Urine Negative (Negative); Leukocyte Esterase,Urine Negative (Negative); Nitrite,Urine Negative (Negative); PH, Urine 7.5 (5.0-8.0); Protein,Urine Negative (Negative); RBC,Urine 3 /hpf (0-5); Specific Gravity,Urine 1.016 (1.001-1.035); Urobilinogen,Urine <2.0 mg/dL (<2.0)
[2024-07-06 13:59] LABS: Amphetamine Screen,Urine Not Detected (NotDetected); Barbiturate Screen,Urine Not Detected (NotDetected); Benzodiazepines Screen,Urine Not Detected (NotDetected); Cocaine Screen,Urine Not Detected (NotDetected); Methadone Screen, Urine Not Detected (NotDetected); Opiate Screen,Urine Not Detected (NotDetected); Oxycodone Screen, Urine Not Detected (NotDetected); Phencyclidine Screen,Urine Not Detected (NotDetected); Tricyclic Antidepressant,Urine Not Detected (NotDetected); Urn Cannabinoid Scrn Not Detected (NotDetected)
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
[2024-07-06 16:05] VITALS: RESP 16
[2024-07-06 16:06] VITALS: TEMP 98
[2024-07-06 16:17] VITALS: BP 130/60; PULSE 68
== END 2024-07-06 16:17 | disposition left against medical advice (07) ==
LOC: EC 12:42
CPT/HCPCS: 36415; 70450; 71045; 72125; 72170; 80053; 80306; 80320; 81001; 82140; 82550; 82803; 83605; 84484; 85025; 85610; 85730; 87636; 93005; 96374; 99285

== ENCOUNTER 2024-08-24 20:17 | Inpatient (IN) | payer MEDICARE ==
--- NOTE | 2024-08-24 21:24 | ED ---
Fall HPI - General Chief Complaint: Fall Stated Complaint: Fall Time Seen by Provider: 08/24/24 20:30 Source: patient, EMS, RN notes reviewed Mode of arrival: EMS - History of Present Illness Initial Comments: 73-year-old female presents emergency department via EMS for chief complaint of a fall. It is reported that patient has been having frequent falls over the past few weeks due to weakness. Patient states that earlier today she was walking in her den when she felt weak and fell onto the floor striking her head. Patient denies loss of consciousness at the time of this event. She denies blood thinner use. States that she has pain over the right side of her eye. She denies symptoms of chest pain, shortness of breath, heart palpitations, dizziness and lightheadedness for the time of the injury. Patient states that she has just been feeling overall weak. She denies abdominal pain, urinary complaints, fevers, chills, nausea, vomiting, rhinorrhea, cough or congestion. - Related Data Home Medications Medication Instructions Recorded Confirmed Simvastatin [Zocor] 20 mg PO HS 05/26/18 08/25/24 clonazePAM 0.5 mg PO TID 09/04/20 08/25/24 PARoxetine HCL [Paxil] 30 mg PO HS 11/15/23 08/25/24 OLANZapine [ZyPREXA] 10 mg PO HS 08/25/24 08/25/24 Previous Rx's Medication Instructions Recorded Furosemide [Lasix] 20 mg PO DAILY #30 tab 11/19/23 Allergies Allergy/AdvReac Type Severity Reaction Status Date / Time No Known Allergies Allergy Verified 08/26/24 15:42 Review of Systems ROS Statement: Those systems with pertinent positive or pertinent negative responses have been documented in the HPI. ROS Other: All systems not noted in ROS Statement are negative. Past Medical History Past Medical History: GERD/Reflux, Hyperlipidemia, Osteoarthritis (OA) Additional Past Medical History / Comment(s): Raynauds, varicose veins, hx frequent UTI's, osteopenia. Hiatal hernia. 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 FRANKO BSO was done for endometriosis and abnormal bleeding. History of Any Multi-Drug Resistant Organisms: None Reported Past Surgical History: Cholecystectomy, Heart Catheterization, Hysterectomy, Joint Replacement, Orthopedic Surgery, Tonsillectomy Additional Past Surgical History / Comment(s): D&C, Darrell knee replacements, darrell knee arthroscopy, darrell carpal tunnel, rt foot heel spur. FRANKO BSO in 2002. Cardiac loop recorder placed in 2018. Colonoscopy 2019. Past Anesthesia/Blood Transfusion Reactions: Family History of Problems w/ Anesthesia Additional Past Anesthesia/Blood Transfusion Reaction / Comment(s): sister-pt not sure of what problems Past Psychological History: Depression Smoking Status: Never smoker Past Alcohol Use History: Rare Past Drug Use History: None Reported - Past Family History Mother Family Medical History: No Reported History Father Family Medical History: Congestive Heart Failure (CHF), Myocardial Infarction ([place]) General Exam Limitations: no limitations General appearance: alert, in no apparent distress Head exam: Present: other (right superior eyebrow laceration 3 cm in length) Eye exam: Present: PERRL, EOMI, periorbital swelling, periorbital tenderness (right eye). Absent: scleral icterus, conjunctival injection, nystagmus Pupils: Present: normal accommodation ENT exam: Present: normal exam, mucous membranes moist, other (ecchymosis over nasal bridge, superior lip laceration with chipped front tooth and intra oral laceration) Neck exam: Present: normal inspection. Absent: tenderness, meningismus, lymphadenopathy Respiratory exam: Present: normal lung sounds bilaterally. Absent: respiratory distress, wheezes, rales, rhonchi, stridor Cardiovascular Exam: Present: regular rate, normal rhythm, normal heart sounds. Absent: systolic murmur, diastolic murmur, rubs, gallop, clicks GI/Abdominal exam: Present: soft, normal bowel sounds. Absent: distended, tenderness, guarding, rebound, rigid Extremities exam: Present: normal inspection, full ROM, normal capillary refill. Absent: tenderness, pedal edema, joint swelling, calf tenderness Back exam: Present: normal inspection Neurological exam: Present: alert, oriented X3, CN II-XII intact Psychiatric exam: Present: normal mood, flat affect Course Vital Signs 08/24/24 08/24/24 08/24/24 20:23 21:23 23:18 Temperature 100.3 F H 100.7 F H Pulse Rate 98 91 Respiratory 18 20 Rate Blood Pressure 127/84 123/82 O2 Sat by Pulse 96 96 Oximetry 08/25/24 08/25/24 08/25/24 06:21 07:51 11:59 Temperature 99.3 F Pulse Rate 90 84 85 Respiratory 18 16 16 Rate Blood Pressure 118/72 124/77 118/74 O2 Sat by Pulse 95 96 97 Oximetry Procedures - Laceration Laceration #1 Consent Obtained: verbal consent Indication: laceration Site: face Size (cm): 3 Description: linear Depth: simple, single layer Pre-repair: irrigated extensively Size of Sutures: other (wound glue/exofen) Patient Tolerated Procedure: well Medical Decision Making - Medical Decision Making Was pt. sent in by a medical professional or institution (, PA, SENIOR ADMINISTRATIVE SERVICES OFFICER, urgent care, hospital, or [facility]...) When possible be specific @ -No Did you speak to anyone other than the patient for history (EMS, parent, family, police, friend...)? What history was obtained from this source @ -No Did you review nursing and triage notes (agree or disagree)? Why? @ -I reviewed and agree with nursing and triage notes Were old charts reviewed (outside hosp., previous admission, EMS record, old EKG, old radiological studies, urgent care reports/EKG's, [facility] records)? Report findings @ -No old charts were reviewed Differential Diagnosis (chest pain, altered mental status, abdominal pain women, abdominal pain men, vaginal bleeding, weakness, fever, dyspnea, syncope, headache, dizziness, GI bleed, back pain, seizure, CVA, palpatations, mental health, musculoskeletal)? @ -Differential Weakness: Hypoglycemia, shock, sepsis, hyponatremia, anemia, infection, CT, ETOH, adverse medicine reaction, overdose, stroke, this is not meant to be an all-inclusive list. EKG interpreted by me (3pts min.). @ -completed at 0033 sinus rhythm with a ventricular rate of 90, HI interval 151, QRS 97, QTc 413. No acute signs of ischemia. X-rays interpreted by me (1pt min.). @ -None done CT interpreted by me (1pt min.). @ -CT of the facial bones without contrast reveals mild right facial periorbital edema with no evidence of facial fracture CT head and cspine without contrast no evidence of acute intracranial process or cervical spine fracture U/S interpreted by me (1pt. min.). @ -None done What testing was considered but not performed or refused? (CT, X-rays, U/S, labs)? Why? @ -None What meds were considered but not given or refused? Why? @ -None Did you discuss the management of the patient with other professionals (professionals i.e. , PA, SENIOR ADMINISTRATIVE SERVICES OFFICER, lab, RT, psych nurse, geriatric social worker, lock installer, gelacio achebk, lead security officer, foster care case manager)? Give summary @ -internal medicine physician for admission. Was smoking cessation discussed for >3mins.? @ -No Was critical care preformed (if so, how long)? @ -No Were there social determinants of health that impacted care today? How? (Homelessness, low income, unemployed, alcoholism, drug addiction, transportation, low edu. Level, literacy, decrease access to med. care, correction, rehab)? @ -No Was there de-escalation of care discussed even if they declined (Discuss DNR or withdrawal of care, Hospice)? DNR status @ -No What co-morbidities impacted this encounter? (DM, HTN, Smoking, COPD, CAD, Cancer, CVA, ARF, Chemo, Hep., AIDS, mental health diagnosis, sleep apnea, morbid obesity)? @ -None Was patient admitted / discharged? Hospital course, mention meds given and route, prescriptions, significant lab abnormalities, going to OR and other pertinent info. @admitted. 73-year-old female with a fall. On my evaluation the patient she is noted to have c-collar in place and has abrasion and ecchymosis over the right eye, laceration over the right eyelid, ecchymosis over the nasal bridge and laceration to the superior lip with edema and ecchymosis. Patient states that she has pain over the right eye. Neurological exam no acute findings. Patient is noted to have a relatively flat affect and states that she has been feeling weak over the past few weeks. She is provided with tetanus vaccination and morphine pending laboratory results. CT of the head, neck, and facial bones unremarkable for acute process. On reevaluation the patient she states that she is interested in staying in the hospital for further evaluation of weakness and potential placement to a rehabilitation center for weakness. Patient's laboratory results reveal a mild leukocytosis of 11.2 and neutrophils 8.8, transaminitis with an AST of 303, ALT 101 and total bilirubin 1.5. Previous laboratory results reveal patient has had elevated liver enzymes as compared to labs results from this visit. COVID, flu, RSV negative. Provided with a liter fluid bolus. patient will be admitted to internal medicine for further evaluation with PT/OT consult for weakess and potential for placement. discussed with my attending in detail, Dr. Montalvo. Undiagnosed new problem with uncertain prognosis? @ -No Drug Therapy requiring intensive monitoring for toxicity (Heparin, Nitro, Insulin, Cardizem)? @ -No Were any procedures done? @ -No Diagnosis/symptom? @ -weakness, fall, laceration, ecchymosis Acute, or Chronic, or Acute on Chronic? @ -acute Uncomplicated (without systemic symptoms) or Complicated (systemic symptoms)? @ -complicated Side effects of treatment? @ -No Exacerbation, Progression, or Severe Exacerbation? @ -No Poses a threat to life or bodily function? How? (Chest pain, USA, CT, pneumonia, PE, COPD, DKA, ARF, appy, cholecystitis, CVA, Diverticulitis, Homicidal, Suicidal, threat to staff... and all critical care pts) @ -No - Lab Data Result diagrams: 08/27/24 00:08 08/26/24 09:24 Lab Results 08/24/24 08/25/24 08/25/24 Range/Units 21:40 00:26 00:26 WBC 11.2 H (3.8-10.6) k/uL RBC 3.45 L (3.80-5.40) m/uL Hgb 11.3 L (11.4-16.0) gm/dL Hct 33.1 L (34.0-46.0) % MCV 95.9 (80.0-100.0) fL MCH 32.6 (25.0-35.0) pg MCHC 34.0 (31.0-37.0) g/dL RDW 13.1 (11.5-15.5) % Plt Count 203 (150-450) k/uL MPV 8.4 Neutrophils % 78 % Lymphocytes % 11 % Monocytes % 9 % Eosinophils % 1 % Basophils % 0 % Neutrophils # 8.8 H (1.3-7.7) k/uL Lymphocytes # 1.2 (1.0-4.8) k/uL Monocytes # 1.0 (0-1.0) k/uL Eosinophils # 0.1 (0-0.7) k/uL Basophils # 0.0 (0-0.2) k/uL Sodium 137 (137-145) mmol/L Potassium 4.6 (3.5-5.1) mmol/L Chloride 108 H (98-107) mmol/L Carbon Dioxide 27 (22-30) mmol/L Anion Gap 2 mmol/L BUN 43 H (7-17) mg/dL Creatinine 0.75 (0.52-1.04) mg/dL Est GFR (CKD-EPI)AfAm >90 (>60 ml/min/1.73 sqM) Est GFR (CKD-EPI)NonAf 79 (>60 ml/min/1.73 sqM) Glucose 113 H (74-99) mg/dL Calcium 8.8 (8.4-10.2) mg/dL Magnesium 2.0 (1.6-2.3) mg/dL Total Bilirubin 1.5 H (0.2-1.3) mg/dL AST 303 H (14-36) U/L ALT 101 H (4-34) U/L Alkaline Phosphatase 80 (38-126) U/L Total Protein 6.1 L (6.3-8.2) g/dL Albumin 3.6 (3.5-5.0) g/dL Influenza Type A (PCR) Not Detected (Not Detectd) Influenza Type B (PCR) Not Detected (Not Detectd) RSV (PCR) Not Detected (Not Detectd) SARS-CoV-2 (PCR) Not Detected (Not Detectd) Blood Type Confirm 08/25/24 Range/Units 00:26 WBC (3.8-10.6) k/uL RBC (3.80-5.40) m/uL Hgb (11.4-16.0) gm/dL Hct (34.0-46.0) % MCV (80.0-100.0) fL MCH (25.0-35.0) pg MCHC (31.0-37.0) g/dL RDW (11.5-15.5) % Plt Count (150-450) k/uL MPV Neutrophils % % Lymphocytes % % Monocytes % % Eosinophils % % Basophils % % Neutrophils # (1.3-7.7) k/uL Lymphocytes # (1.0-4.8) k/uL Monocytes # (0-1.0) k/uL Eosinophils # (0-0.7) k/uL Basophils # (0-0.2) k/uL Sodium (137-145) mmol/L Potassium (3.5-5.1) mmol/L Chloride (98-107) mmol/L Carbon Dioxide (22-30) mmol/L Anion Gap mmol/L BUN (7-17) mg/dL Creatinine (0.52-1.04) mg/dL Est GFR (CKD-EPI)AfAm (>60 ml/min/1.73 sqM) Est GFR (CKD-EPI)NonAf (>60 ml/min/1.73 sqM) Glucose (74-99) mg/dL Calcium (8.4-10.2) mg/dL Magnesium (1.6-2.3) mg/dL Total Bilirubin (0.2-1.3) mg/dL AST (14-36) U/L ALT (4-34) U/L Alkaline Phosphatase (38-126) U/L Total Protein (6.3-8.2) g/dL Albumin (3.5-5.0) g/dL Influenza Type A (PCR) (Not Detectd) Influenza Type B (PCR) (Not Detectd) RSV (PCR) (Not Detectd) SARS-CoV-2 (PCR) (Not Detectd) Blood Type Confirm A Positive Disposition Clinical Impression: Weakness Disposition: ADMITTED IP TO THIS HOSP Condition: Stable Decision to Admit Reason: Admit from EC
[2024-08-24] MEDS: ACETAMINOPHEN TAB 500 MG TAB PO STA (21:48)
[2024-08-24] MEDS: MORPHINE SULFATE 4 MG/ML SYRINGE IVP STA (21:51)
--- NOTE | 2024-08-24 21:57 | CT ---
EXAMINATION TYPE: CT brain cspine wo con, CT facial bones wo con CT DLP: 1300 mGycm, Automated exposure control for dose reduction was used. DATE OF EXAM: 08/24/2024 9:22 PM COMPARISON: None. CLINICAL INDICATION: Female, 73 years old with history of fall, injury; Pt presents to ED by EMS foll owing frequent falls at home. Pt lives home alone. Pt admits to hitting head. Denies LOC denies thinn er use. Pt admits to numerous falls over the past few weeks. C-collar in place TECHNIQUE: Brain: Multiple axial CT images of the brain were obtained without IV contrast. Cspine: Axial CT images from the skull base to the inferior aspect of T2 we obtained without intraven ous contrast. Coronal and sagittal reformatted images were also reviewed. Facial: Axial imaging of the facial structures with sagittal and coronal reformats. FINDINGS: Brain: Extra-axial spaces: No abnormal extra-axial fluid collections. Ventricular system: Within normal limits Cerebral parenchyma: No acute intraparenchymal hemorrhage or mass effect. The linares-white junction is well differentiated. Cerebellum: Unremarkable. Mass effect: No evidence of midline shift. Intracranial vasculature: unremarkable Soft tissues: Right scalp edema. Calvarium/osseous structures: No depressed skull fracture. Severe degeneration changes of the temporo mandibular joints bilaterally Paranasal sinuses and mastoid air cells: Clear. Visualized orbits: Orbital contents are intact. Cervical spine: Fracture: None. Osseous structures: Multilevel degenerative disc disease changes with endplate spurring and disc oste ophyte complex's. Vertebral alignment: Within normal limits. Spinal canal/Neural Foramina: No evidence of significant spinal canal narrowing. Facet joint uncovert ebral joint arthropathy scattered throughout the cervical spine with varying degrees of neural forami nal stenosis. Neck soft tissues: Prevertebral soft tissues are within normal limits. Other: The airway is patent. The lung apices are clear. Facial: There is no evidence of fracture, subluxation, dislocation. Mild right periorbital and facial edema. The orbital contents are unremarkable.The temporal-mandibular joints appear symmetric. The vi sualized portion of the paranasal sinuses appear clear. Left submental lymph node measuring up to 11 mm. The [id number] on prior exams. IMPRESSION: 1. No acute intracranial process. 2. Mild scalp edema suggested and mild right facial periorbital edema. No evidence of facial fractur e. 3. No evidence of cervical spine fracture. 4. Moderate multilevel degenerative disc disease. 5. Left submental lymph node not definitively in the [id number] on prior examinations. Consider s hort-term follow-up to ensure stability. [facility], , 08/24/2024 9:55 PM
[2024-08-24] MEDS: DIPH,PERTUS(ACELL)TETVAC-LF 0.5 ML VIAL IM ONE (23:21)
[2024-08-24] MEDS: TOPICAL SKIN ADHESIVE 1 EACH AMP TOPICAL ONE (23:35)
[2024-08-25 00:31] LABS: Basophils % (A) 0 %; Eosinophils # (A) 0.1 k/uL (0-0.7); Eosinophils % (A) 1 %; HCT 33.1 % (34.0-46.0); HGB 11.3 gm/dL (11.4-16.0); Lymphocytes # (A) 1.2 k/uL (1.0-4.8); Lymphocytes % (A) 11 %; MCH 32.6 pg (25.0-35.0); MCV 95.9 fL (80.0-100.0); Mean Platelet Volume 8.4; Monocytes % (A) 9 %; Neutrophils # (A) 8.8 k/uL (1.3-7.7); Neutrophils % (A) 78 %; Platelet Count 203 k/uL (150-450); RBC 3.45 m/uL (3.80-5.40); RDW 13.1 % (11.5-15.5); WBC 11.2 k/uL (3.8-10.6)
[2024-08-25 01:40] LABS: ALT 101 U/L (4-34); African American GFR (CKD) >90 (>60 ml/min/1.73 sqM); Albumin 3.6 g/dL (3.5-5.0); Anion Gap 2 mmol/L; Blood Urea Nitrogen 43 mg/dL (7-17); Calcium 8.8 mg/dL (8.4-10.2); Carbon Dioxide 27 mmol/L (22-30); Chloride 108 mmol/L (98-107); Glucose 113 mg/dL (74-99); Non-African American GFR(CKD) 79 (>60 ml/min/1.73 sqM); Sodium 137 mmol/L (137-145); Total Bilirubin 1.5 mg/dL (0.2-1.3); Total Protein 6.1 g/dL (6.3-8.2)
[2024-08-25 01:45] LABS: AST 303 U/L (14-36); Alkaline Phosphatase 80 U/L (38-126); Potassium 4.6 mmol/L (3.5-5.1)
[2024-08-25] MEDS: SODIUM CHLORIDE 0.9% 1,000 ML IV STA (02:31)
[2024-08-25] MEDS ORDERED: NALOXONE 0.4 MG/ML 1 ML VIAL IV PRN (04:22)
[2024-08-25] MEDS: SODIUM CHLORIDE 0.9% 1,000 ML IV SCH (06:28)
[2024-08-25 06:42] LABS: Appearance,Urine Clear (Clear); Bilirubin,Urine Negative (Negative); Blood,Urine Moderate (Negative); Color,Urine Yellow; Glucose,Urine (UA) Negative (Negative); Ketones,Urine Trace (Negative); Leukocyte Esterase,Urine Small (Negative); Mucus,Urine Few /hpf; Nitrite,Urine Negative (Negative); PH, Urine 6.5 (5.0-8.0); Protein,Urine 1+ (Negative); RBC,Urine 16 /hpf (0-5); Specific Gravity,Urine 1.023 (1.001-1.035); Squamous Epithelial Cell,Urine <1 /hpf (0-4); Urobilinogen,Urine <2.0 mg/dL (<2.0); WBC,Urine 14 /hpf (0-5)
[2024-08-25] MEDS: cefTRIAXone IN SWFI 1,000 MG/10 ML SYRINGE IVP STA (06:58)
--- NOTE | 2024-08-25 08:46 | P.HPIM ---
History of Present Illness H&P Date: 08/25/24 HISTORY OF PRESENT ILLNESS: 73-year-old office patient with active medical history of CVA/TIA, recurrent urinary tract infection, multiple falls with recurrent rhabdomyolysis, hyperlipidemia, Severe osteoarthritis, severe hiatal hernia, recurrent chronic abdominal pain with IBS and chronic diarrhea with negative study since 2019, multiple episode of syncope with previous history of heart cath and loop recorder monitor, chronic depression which patient seen counselor on more regular basis and has been doing slightly better with medication. Significant weight loss last few years with negative study for CA. She apparently sustained a fall and had according to her she was walking in her then in the house when she felt very weak and fell into the floor striking her head sustaining a slight laceration above her eye on the right side and the lip area. With no other injury she was extremely weak bleeding she called 911 EMS To the scene was transferred to the emergency department at [facility] where was seen and evaluated CAT scan of the brain and the face shows mild scalp edema suggested mild right facial and periorbital edema with no evidence of facial fracture moderate multilevel degenerative disc disease with no fracture was found. She had her laceration in the right periorbit blue at the time patient continue to have severe weakness not been able to ambulate or walk start hydration she has mildly elevated white blood cell at 11,200 with left shift. Is very positive for UTI surprisingly had significantly abnormal liver function test with AST of 303 ALT of 41 with bilirubin at 1.5 blood sugar is borderline normal kidney function at the time mild anemia. Will order an ultrasound of the abdomen if needed a CAT scan patient will be hospitalized continue hydration watch symptoms carefully start patient on 1 g of Rocephin for UTI. Also patient is complaining of increased right hip pain and leg pain x-ray of both hip and the femur will be done to make sure is no fracture. REVIEW OF SYSTEMS: CONSTITUTIONAL: Well-developed no acute respiratory distress. EYES: No icterus sclerae, no conjunctivitis. Slight right periorbital bruise. EARS, NOSE, MOUTH, THROAT, and FACE: No sore throat, lymphadenopathy, carotid bruits or deformity. RESPIRATORY: No SOB cough or wheezes. CARDIOVASCULAR: No CP, Palpitation, PND, Orthopnea, or angina. GASTROINTESTINAL: Abdominal discomfort with change in bowel habit mild nausea no vomiting slight diarrhea. GENITOURINARY: Slight incontinence with burning discomfort with more frequency. INTEGUMENT/BREAST: Generalized arthralgia and myalgia. HEMATOLOGIC/LYMPHATIC: Negative for bleed or purpura. MUSCULOSKELTAL: Generalized weakness all over with significant cervical spine and lumbar spine discomfort. NEURLOGICAL: No LOC, Sz or syncope, blurred vision dizziness or abnormality.. BEHAVIORAL/PSYCH: Negative. ENDOCRINE: Negative. PHYSICAL EXAMINATION: General Appearance: Alert, cooperative, no distress, appears stated age. Slightly bit anxious. Neck HEENT: Supple, no lymphadenopathy, no thyroid enlargement, no carotid bruits. Significant bruise over the right periorbital area with laceration looks glued still have slight hematoma and bruise around it. Lungs: Clear to auscultation without crackles or wheezes no rhonchi, no deformity. Chest Wall: Chest wall normal expansion with deep inspiration no tenderness and no deformity was found on exam, no costochondral pain or discomfort. Heart: Regular rate and rhythm, S1, S2 normal, no murmur, rub or gallop. Back: Symmetric, no curvature, ROM normal, no CVA tenderness. Abdomen: Soft, non-tender, bowel sounds active slight discomfort in the right upper quadrant area and mid abdominal area no rebound or rigidity. Extremities: Extremities normal, atraumatic, no cyanosis or edema. Slight bruise over the knee but full range of motion. Pulses: 2+ and symmetric. Skin: Skin color, texture, tugor normal, no rashes or lesions. Neurologic: Alert oriented x3 cranial nerves II through XII intact, no motor deficit, no abnormal balance or gait. ASSESSMENT AND PLAN: _Multiple fall with closed head trauma: CT of the brain does not show any bleed, patient was hospitalized after laceration was treated will continue neuroexam for the next 24 hours every 4 hours continue to watch for any altered mental status or any change. _Altered mental status: Secondary to UTI and probably for close head trauma again continue to watch symptoms carefully. _? Of parkinsonism: Patient has been having more tremor with abnormal balance and gait and facial expression typical for Parkinson disease will consult neurology for the altered mental status and for possible parkinsonism. _UTI with no sign of sepsis at this point, patient will be on Rocephin 1 g daily waiting for the final culture. _Abnormal liver function test with AST to ALT AST to 1 type C normally from alcoholism and up till now I have no suspicion that patient is an alcoholic will need to be watch sadly ER did not send any alcohol level or drug screen. Liver function test will be repeated again along with ultrasound. _Right hip injury: Try to exclude possible fracture, x-ray will be done along with x-ray of the femur to exclude any bone fracture as well. _Severe depression: Has been seen psych still on Paxil along with olanzapine along with Cogentin resume medication. _Hyperlipidemia: Continue patient on Zocor 20 mg daily. _Chronic IBS with recurrent abdominal pain has seen gastroenterology on regular basis multiple scope in the past and CAT scan still on MiraLAX apparently and OTC IBS medication. _Chronic edema: Still on furosemide 20 mg a day. _GI prophylaxis: Patient be on pantoprazole 40 mg a day. _DVT prophylaxis: Knee-high WILL hose and early mobilization. CODE STATUS: Full code. Admit patient to the hospital for 1-2 night stay. Past Medical History Past Medical History: GERD/Reflux, Hyperlipidemia, Osteoarthritis (OA) Additional Past Medical History / Comment(s): Raynauds, varicose veins, hx frequent UTI's, osteopenia. Hiatal hernia. 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 FRANKO BSO was done for endometriosis and abnormal bleeding. History of Any Multi-Drug Resistant Organisms: None Reported Past Surgical History: Cholecystectomy, Heart Catheterization, Hysterectomy, Joint Replacement, Orthopedic Surgery, Tonsillectomy Additional Past Surgical History / Comment(s): D&C, Jonel knee replacements, jonel knee arthroscopy, jonel carpal tunnel, rt foot heel spur. FRANKO BSO in 2002. Cardiac loop recorder placed in 2017. Colonoscopy 2019. Past Anesthesia/Blood Transfusion Reactions: Family History of Problems w/ Anesthesia Additional Past Anesthesia/Blood Transfusion Reaction / Comment(s): sister-pt not sure of what problems Past Psychological History: Depression Smoking Status: Never smoker Past Alcohol Use History: Rare Past Drug Use History: None Reported - Past Family History Mother Family Medical History: No Reported History Father Family Medical History: Congestive Heart Failure (CHF), Myocardial Infarction ([place]) Medications and Allergies Home Medications Medication Instructions Recorded Confirmed Type Simvastatin [Zocor] 20 mg PO HS 05/26/18 08/25/24 History clonazePAM 0.5 mg PO TID 09/04/20 08/25/24 History PARoxetine HCL [Paxil] 30 mg PO HS 11/15/23 08/25/24 History Furosemide [Lasix] 20 mg PO DAILY #30 tab 11/19/23 08/25/24 Rx OLANZapine [ZyPREXA] 10 mg PO HS 08/25/24 08/25/24 History Allergies Allergy/AdvReac Type Severity Reaction Status Date / Time No Known Allergies Allergy Verified 08/25/24 08:17 Physical Exam Vitals: Vital Signs Temp Pulse Resp BP Pulse Ox 08/24/24 23:18 91 20 123/82 96 08/24/24 21:23 100.7 F H 08/24/24 20:23 100.3 F H 98 18 127/84 96 Intake and Output 08/24/24 08/24/24 08/25/24 14:59 22:59 06:59 Other: Weight 61.689 kg Results CBC & Chem 7: 08/25/24 00:26 08/25/24 00:26 Labs: Abnormal Lab Results - Last 24 Hours (Table) 08/25/24 08/25/24 Range/Units 00:26 00:26 WBC 11.2 H (3.8-10.6) k/uL RBC 3.45 L (3.80-5.40) m/uL Hgb 11.3 L (11.4-16.0) gm/dL Hct 33.1 L (34.0-46.0) % Neutrophils # 8.8 H (1.3-7.7) k/uL Chloride 108 H (98-107) mmol/L BUN 43 H (7-17) mg/dL Glucose 113 H (74-99) mg/dL Total Bilirubin 1.5 H (0.2-1.3) mg/dL AST 303 H (14-36) U/L ALT 101 H (4-34) U/L Total Protein 6.1 L (6.3-8.2) g/dL
[2024-08-25] MEDS: clonazePAM 0.5 MG TAB PO SCH (08:57)
[2024-08-25] MEDS: FUROSEMIDE 20 MG TAB PO SCH (08:57)
--- NOTE | 2024-08-25 10:22 | US ---
EXAMINATION TYPE: US abdomen limited DATE OF EXAM: 08/25/2024 COMPARISON: NONE CLINICAL INDICATION: Female, 73 years old with history of abx LFT; abnormal LFTs. Cholecystectomy TECHNIQUE: Grayscale and color Doppler imaging of the right upper quadrant was performed. FINDINGS: EXAM MEASUREMENTS: Liver Length: 14.4 cm Gallbladder Wall: Surgically absent CBD: 0.68 cm Right Kidney: 10.0 x 4.2 x 4.1 cm BLOW MOLDER NOTES:exam done mostly intercostally Pancreas: tail partially limited due to bowel gas, parts seen appear wnl Liver: heterogeneous , no dilated ducts or masses. Gallbladder: Surgically absent Evidence for sonographic Capellan's sign: No CBD: wnl Right Kidney: wnl IMPRESSION: Hepatocellular disease suggested with coarsened echotexture to liver. [facility], , 08/25/2024 10:19 AM
--- NOTE | 2024-08-25 11:00 | XR ---
EXAMINATION TYPE: XR femur RT DATE OF EXAM: 08/25/2024 CLINICAL HISTORY: Pain TECHNIQUE: Two views of the right femur are obtained. COMPARISON: None FINDINGS: There is postsurgical change of the right knee with diffuse generalized demineralization. There is a displaced fracture of the right femoral neck possibly intertrochanteric. Arthropathy of th e hips. SI joint arthropathy. IMPRESSION: 1. Displaced proximal right femoral fracture. [facility], , 08/25/2024 10:58 AM
--- NOTE | 2024-08-25 11:04 | XR ---
EXAMINATION TYPE: XR Hip Complete RT DATE OF EXAM: 08/25/2024 COMPARISON: NONE HISTORY: Pain TECHNIQUE: 2 views submitted FINDINGS: There is postsurgical change of the right knee with diffuse generalized demineralization. There is a displaced fracture of the right femoral neck possibly intertrochanteric. Arthropathy of th e hips. SI joint arthropathy. IMPRESSION: 1. Displaced proximal right femoral fracture. A Red level critical message alert has been initiated for Fitz Ledesma MD via the [employer] System on 08/25/2024 10:59 AM. This message alert has been sent to Fitz Ledesma MD via the preferences provided by the clinician for the receipt of Radiology Critical Findings. Message ID [id number]. [facility], , 08/25/2024 11:01 AM
[2024-08-25] MEDS ORDERED: ZINC OXIDE PASTE (Z-GUARD) 1 APPLIC TOPICAL PRN (17:10)
[2024-08-25] MEDS: ACETAMINOPHEN TAB 325 MG TAB PO PRN (22:03)
[2024-08-25] MEDS: ATORVASTATIN 10 MG TAB PO SCH (22:03)
[2024-08-25] MEDS: PARoxetine 10 MG TAB PO SCH (22:20)
[2024-08-25] MEDS: OLANZapine 10 MG TAB PO SCH (22:20)
--- NOTE | 2024-08-26 06:52 | P.CNOR ---
History of Present Illness - [facility] Consult date: 08/26/24 Consult reason: fracture History of present illness: Patient presents following a fall with right hip pain and inability to bear weight. This morning patient will not converse on my exam, further details are taken from chart review. She will respond to requests for physical exmam maneuvers but will not answer questions currently. Review of Systems ROS unobtainable: due to mental status Musculoskeletal: Reports as per HPI Musculoskeletal: right: hip pain Neurological: Reports motor disturbance, Reports tremors Past Medical History Past Medical History: GERD/Reflux, Hyperlipidemia, Osteoarthritis (OA) Additional Past Medical History / Comment(s): Raynauds, varicose veins, hx frequent UTI's, osteopenia. Hiatal hernia. 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 [facility] BSO was done for endometriosis and abnormal bleeding. History of Any Multi-Drug Resistant Organisms: None Reported Past Surgical History: Cholecystectomy, Heart Catheterization, Hysterectomy, Joint Replacement, Orthopedic Surgery, Tonsillectomy Additional Past Surgical History / Comment(s): D&C, Jonel knee replacements, jonel knee arthroscopy, jonel carpal tunnel, rt foot heel spur. FRANKO BSO in 2002. Cardiac loop recorder placed in 2017. Colonoscopy 2019. Past Anesthesia/Blood Transfusion Reactions: Family History of Problems w/ Anesthesia Additional Past Anesthesia/Blood Transfusion Reaction / Comm: sister-pt not sure of what problems Smoking Status: Never smoker - Past Family History Mother Family Medical History: No Reported History Father Family Medical History: Congestive Heart Failure (CHF), Myocardial Infarction (DC) Medications and Allergies Home Medications Medication Instructions Recorded Confirmed Type Simvastatin [Zocor] 20 mg PO HS 05/26/18 08/25/24 History clonazePAM 0.5 mg PO TID 09/04/20 08/25/24 History PARoxetine HCL [Paxil] 30 mg PO HS 11/15/23 08/25/24 History Furosemide [Lasix] 20 mg PO DAILY #30 tab 11/19/23 08/25/24 Rx OLANZapine [ZyPREXA] 10 mg PO HS 08/25/24 08/25/24 History Allergies Allergy/AdvReac Type Severity Reaction Status Date / Time No Known Allergies Allergy Verified 08/25/24 08:17 Physical Examination - Fracture right hip Location of fracture: proximal femur Appearance: normal, swelling Open wound: none Compartments: soft Distal extremity neurovascularly intact: Yes Proximal joint involvement: No Distal joint involvement: No Other injury: muscle injury: no, tendon injury: no, ligament injury: no, vascu lar injury: no, nerve injury: no Results - Labs Labs: Abnormal Lab Results - Last 24 Hours (Table) 08/25/24 08/25/24 08/25/24 Range/Units 00:26 00:26 06:30 WBC 11.2 H (3.8-10.6) k/uL RBC 3.45 L (3.80-5.40) m/uL Hgb 11.3 L (11.4-16.0) gm/dL Hct 33.1 L (34.0-46.0) % Neutrophils # 8.8 H (1.3-7.7) k/uL Chloride 108 H (98-107) mmol/L BUN 43 H (7-17) mg/dL Glucose 113 H (74-99) mg/dL Total Bilirubin 1.5 H (0.2-1.3) mg/dL AST 303 H (14-36) U/L ALT 101 H (4-34) U/L Total Protein 6.1 L (6.3-8.2) g/dL Urine Protein 1+ H (Negative) Urine Ketones Trace H (Negative) Urine Blood Moderate H (Negative) Ur Leukocyte Esterase Small H (Negative) Urine RBC 16 H (0-5) /hpf Urine WBC 14 H (0-5) /hpf Urine Mucus Few H (None) /hpf H & H 08/25/24 Range/Units 00:26 Hgb 11.3 L (11.4-16.0) gm/dL Hct 33.1 L (34.0-46.0) % Result Diagrams: 08/25/24 00:26 08/25/24 00:26 - Diagnostic results Hip x-ray: report reviewed, image reviewed (XR shows basicervical femoral neck fracture ) Assessment and Plan (1) Closed right hip fracture Current Visit: Yes Status: Acute Priority: High Code(s): S72.001A - FRACTURE OF UNSP PART OF NECK OF RIGHT FEMUR, INIT SNOMED Code(s): 593161275 Plan: NWB RLE NPO Appreciate medicine recommendations for surgical optimization Will plan for OR this afternoon 08/26 SCDS bilaterally Multimodal pain control
--- NOTE | 2024-08-26 08:08 | P.CNNES ---
History of Present Illness Consult date: 08/25/24 Requesting physician: Fitz Ledesma Reason for Consult: Altered MS and ?? Parkinson History of Present Illness: Patient is a 73-year-old female came to the hospital by ambulance yesterday at 8:17 PM for recurrent falls. Patient states that she lives alone and has been losing balance and falls. The balance problem started about a year ago. She has been falling about 2 times a month. She denies any dizziness or lightheadedness before the fall, does not pass out. She just loses balance. She did hit her head with the recent fall. Patient states that she has been using walker for last couple months. She only falls if she is not using her walker. She only shakes when using a walker but does not fall. Sometimes she just puts walker on the side when she would like to do something for a minute and she falls. Patient denies any history of neuropathy. Patient denies any tobacco alcohol use or diabetes. Patient states that after the fall, she could not get up. One of the neighbors came over to let her dog out when they saw her on the floor. They called the EMS. Neurology was consulted to rule out Parkinson's. Patient does not see any neurologist. As per EMS flowsheet, when they arrived, patient was sitting upright in the chair in care of her sister and neighbors. Patient's neighbor found patient laying on her floor at 5:30 AM. Patient told him that she fell during the night and was unable to get herself up. Patient states she did not lose consciousness. She mentioned that she remembers falling. She also mentioned that she fell 2 more times today since then. No loss of consciousness when she fell the other times as well. There was 1-1/2 inch laceration above her right eyebrow. Bleeding is stopped and a scab is beginning to form. Patient also has a laceration to middle outside of her upper lip. Bleeding is stopped. Patient's whole face appears swollen with bruising beneath left eye. Patient was alert and orient x 4, slow to answer questions. Patient's pupils were midpoint and not reacting to light. Patient was able to follow commands and moves all extremities. Patient denies chest or back pain. No neck or head pain. Patient was assisted to a stair chair. Blood sugar was 172. Vital signs at the scene was blood pressure 142/83 pulse rate 103, saturation 97% respirations 16. Blood test shows WBC 11.2 hemoglobin 11.3 platelets are normal. Sodium 137 potassium 4.6 normal renal functions. AST is 303, ALT 101. UA is negative. Small amount of leukocyte Estrace. Influenza, RSV and coronavirus PCR negative. Facial CT shows no acute intracranial process. Mild scalp edema and mild right facial periorbital edema. No fracture. No evidence of cervical spinal fracture. Moderate multilevel degenerative disc disease. Left submental lymph node not definitively in the [id number] on prior examination. EKG showed sinus rhythm. Abdominal ultrasound shows hepatocellular disease suggested with coarsened echotexture to the liver. X-ray of the femur revealed displaced proximal right femoral fracture. X-ray of the hip showed displaced proximal right femoral fracture. Home medication includes Zocor 20 mg, clonazepam 0.5 mg 3 times daily, Paxil, Lasix 20 mg and Zyprexa 10 mg at bedtime. Patient states she has been taking Zyprexa for last 1 year. 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 Patient was started on Cogentin at that time to help with extrapyramidal features of Zyprexa. Her parkinsonian features had improved at that time. Patient had an MRI brain performed at the time which was nonspecific. No acute process was seen. Patient admits that her handwriting is getting smaller and she walks with a shuffle. She has in general no problem getting up from chair at baseline. Review of Systems Constitutional: Denies chills, Denies fever Eyes: denies blurred vision, denies decreased vision, denies diplopia, denies pain Ears: deny: decreased hearing, ear discharge Ears, nose, mouth and throat: Reports headache, Denies sore throat, Denies vertigo Cardiovascular: Denies chest pain, Denies shortness of breath Respiratory: Reports excessive sputum, Denies cough Gastrointestinal: Denies abdominal pain, Denies diarrhea, Denies nausea, Denies vomiting Genitourinary: Denies mixed incontinence, Denies urgency Musculoskeletal: Denies low back pain, Denies myalgias, Denies neck pain Integumentary: Denies pruritus, Denies rash Neurological: Reports as per HPI, Reports tremors, Denies vertigo Psychiatric: Reports depression, Denies anxiety Endocrine: Denies fatigue, Denies weight change Hematologic/Lymphatic: Reports easy bruising, Denies easy bleeding Past Medical History Past Medical History: GERD/Reflux, Hyperlipidemia, Osteoarthritis (OA) Additional Past Medical History / Comment(s): Raynauds, varicose veins, hx frequent UTI's, osteopenia. Hiatal hernia. 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 [facility] BSO was done for endometriosis and abnormal bleeding. History of Any Multi-Drug Resistant Organisms: None Reported Past Surgical History: Cholecystectomy, Heart Catheterization, Hysterectomy, Joint Replacement, Orthopedic Surgery, Tonsillectomy Additional Past Surgical History / Comment(s): D&C, Jonel knee replacements, jonel knee arthroscopy, jonel carpal tunnel, rt foot heel spur. [facility] BSO in 2002. Cardiac loop recorder placed in 2017. Colonoscopy 2019. Past Anesthesia/Blood Transfusion Reactions: Family History of Problems w/ Anesthesia Additional Past Anesthesia/Blood Transfusion Reaction / Comment(s): sister-pt not sure of what problems Smoking Status: Never smoker - Past Family History Mother Family Medical History: No Reported History Father Family Medical History: Congestive Heart Failure (CHF), Myocardial Infarction (NM) Medications and Allergies Home Medications Medication Instructions Recorded Confirmed Type Simvastatin [Zocor] 20 mg PO HS 05/26/18 08/25/24 History clonazePAM 0.5 mg PO TID 09/04/20 08/25/24 History PARoxetine HCL [Paxil] 30 mg PO HS 11/15/23 08/25/24 History Furosemide [Lasix] 20 mg PO DAILY #30 tab 11/19/23 08/25/24 Rx OLANZapine [ZyPREXA] 10 mg PO HS 08/25/24 08/25/24 History Allergies Allergy/AdvReac Type Severity Reaction Status Date / Time No Known Allergies Allergy Verified 08/25/24 08:17 Physical Examination - Vital Signs Vital Signs: Vital Signs Temp Pulse Resp BP BP Pulse Ox 08/25/24 17:07 97.9 F 22 120/60 98 08/25/24 16:35 85 22 120/60 98 08/25/24 11:59 85 16 118/74 97 08/25/24 07:51 84 16 124/77 96 08/25/24 06:21 99.3 F 90 18 118/72 95 08/24/24 23:18 91 20 123/82 96 Intake and Output 08/25/24 08/25/24 08/25/24 06:59 14:59 22:59 Other: # Voids 0 Weight 61.689 kg Patient is an elderly female, very pleasant, in no acute distress. Patient is alert awake oriented to time place and person. She knows it is August and the year is 2023 and that she is in [facility] in [place]. She knows name of current president Mr. Arcos. Speech and language functions are normal. Patient can name and repeat very well. No aphasia or dysarthria. Attention, concentration and fund of knowledge is adequate. Patient is neck is somewhat stiff. She has decreased range of motion of the neck patient has laceration over her lip, right cheek and the impression of glasses over her eyebrows from the fall. Patient is slightly leaning to the left. On cranial nerve examination, pupils are equal, round and reacting to light, visual almodovar are full on confrontation, with no neglect on double simultaneous stimulation. Extraocular muscles are intact with no nystagmus. Face is symmetric, tongue protrudes to the midline. Palatal elevation and sensation normal, hearing and shoulder shrug normal, facial sensation normal. On muscle strength testing, there is no pronator drift and the strength is normal in arms with biceps 5, mimeographer 5, triceps 5-4+, deltoid 5-4+. Ankle dorsiflexion are 5 bilaterally. Hip flexion was not checked on the right, but it is 4-on the left. Deep tendon reflexes are (right/left) biceps 1/2, brachioradialis 1/2, reflexes are very hypoactive in the lower limbs and plantars are flat bilaterally. Sensory to touch is equal with no neglect on double simultaneous stimulation. Cerebellar function showed no ataxia for ixjuua-et-exaj testing, although she is somewhat tremulous, jerky for iexsbz-vk-zlbz testing left more than right. No dysdiadochokinesia. Tone is mild to moderately increased bilaterally with evidence of cogwheeling and rigidity, and bulk of muscles is normal. No obvious resting tremors noticed on either side. Gait deferred.. On general examination, there is no carotid bruit or murmur, S1-S2 audible. Chest is clear on consultation. Abdomen is soft nontender. No organomegaly, bowel sounds present. Peripheral pulses are present. No peripheral edema. 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 Patient states she has been taking Zyprexa for almost a year, and since then she has been having frequent falls. * Recurrent falls, now with displaced proximal right femoral fracture. * Facial trauma, likely due to above. * Depression * Elevated LFTs, possible due to simvastatin. Plan: * Patient has drug-induced parkinsonism. Recommend stopping Zyprexa. On the last admission in November 2023, same was recommended, and Cogentin was added to the regimen, but apparently patient is not taking Cogentin at this time. * Continue aspirin 81 mg and Lipitor 10 mg. * Orthopedic on board, and patient probably will undergo surgery for right femoral fracture in the morning. * Patient already has appropriate workup performed on the last visit as described below: * B12 717, folate 13.8, TSH 1.40, recheck CPK ammonia 16, RPR nonreactive. * MRI brain revealed scattered deep white matter changes, which are nonspecific. Differential diagnosis could include microvascular ischemic change, vascu litis, multiple sclerosis, Lyme disease, migraine headaches. Prominent pituitary. Dedicated contrast pituitary MRI is recommended for additional evaluation. Microadenoma may be present. This may be followed up as an outpatient. * 2-D echo revealed normal left ventricular systolic function, with EF 55-60%. No regional wall motion abnormalities. Moderately increased left atrial volume. No significant valvular abnormalities. * Carotid Doppler revealed no flow limiting stenosis of bilateral carotids. Antegrade flow in both vertebral arteries. * Neurology will follow. Thank you for the consult.
--- NOTE | 2024-08-26 09:18 | P.PN ---
Subjective Progress Note Date: 08/26/24 Principal diagnosis: Closed right hip fracture Patient is currently being treated with Rocephin for UTI. Patient has been A and O x 3 this morning per nursing staff. Patient continues to have pain on the lateral aspect of the right hip. Objective - Vital Signs Vital signs: Vital Signs Temp 100.1 F H 08/26/24 07:15 Pulse 77 08/26/24 07:15 Resp 18 08/26/24 07:15 BP 102/62 08/26/24 07:15 Pulse Ox 91 L 08/26/24 07:15 FiO2 Intake & Output 08/25/24 08/26/24 08/26/24 18:59 06:59 18:59 Output Total 0 800 Balance 0 -800 Weight 61.689 kg Output: Urine 0 800 Other: Voiding Method Indwelling Catheter # Voids 0 - Exam Was examined at bedside's morning. Patient was awake, alert and able to answer questions. On exam there is no skin lesions over the anterior and lateral right hip. Mild swelling in the right thigh. Tenderness to palpation over the lateral right hip. Patient's right femoral nerve function is grossly intact. Patient is able to plantarflex and dorsiflex the right ankles and toes. John alvarado's right lower extremity appears well-perfused with capillary refill is under 2 seconds. - Labs CBC & Chem 7: 08/25/24 00:26 08/25/24 00:26 Assessment and Plan Assessment: Closed right hip fracture Plan: Patient has been n.p.o. since midnight. NWB RLE SCDS bilaterally Multimodal pain control Spoke to nursing staff and they will contact medical team for preoperative evaluation and clearance. Dr. Smith plans for OR this afternoon 08/26/2024.
--- NOTE | 2024-08-26 10:09 | XR ---
EXAMINATION TYPE: XR chest 1V portable DATE OF EXAM: 08/26/2024 COMPARISON: 07/06/2024 HISTORY: Shortness of breath TECHNIQUE: Single frontal view of the chest is obtained. FINDINGS: Elevated left hemidiaphragm with left basilar subsegmental consolidation. Diffuse osteopen ia, degenerative changes spine arthropathy of the shoulders. Surgical clips gallbladder fossa. Metall ic device likely representing loop recorder device overlying the cardiac silhouette. No overt failure . No pneumothorax. IMPRESSION: Left basilar infiltrate versus atelectasis. [facility], , 08/26/2024 10:06 AM
[2024-08-26 10:14] LABS: Prothrombin Time 11.3 sec (10.0-12.5)
[2024-08-26 10:22] LABS: African American GFR (CKD) >90 (>60 ml/min/1.73 sqM); Anion Gap -2 mmol/L; Blood Urea Nitrogen 31 mg/dL (7-17); Calcium 7.6 mg/dL (8.4-10.2); Carbon Dioxide 29 mmol/L (22-30); Chloride 112 mmol/L (98-107); Glucose 89 mg/dL (74-99); Non-African American GFR(CKD) >90 (>60 ml/min/1.73 sqM); Potassium 3.7 mmol/L (3.5-5.1); Sodium 139 mmol/L (137-145)
[2024-08-26 10:29] LABS: Basophils % (A) 0 %; Eosinophils % (A) 1 %; HCT 27.7 % (34.0-46.0); Hypochromasia Slight; Lymphocytes % (A) 16 %; MCH 31.8 pg (25.0-35.0); MCHC 31.7 g/dL (31.0-37.0); MCV 100.4 fL (80.0-100.0); Mean Platelet Volume 7.8; Monocytes # (A) 0.5 k/uL (0-1.0); Monocytes % (A) 9 %; Neutrophils # (A) 4.4 k/uL (1.3-7.7); Neutrophils % (A) 73 %; Platelet Count 163 k/uL (150-450); RBC 2.76 m/uL (3.80-5.40); RDW 12.8 % (11.5-15.5)
[2024-08-26 10:35] LABS: HGB 8.8 gm/dL (11.4-16.0)
[2024-08-26 13:36] LABS: ALT 93 U/L (4-34); AST 212 U/L (14-36)
[2024-08-26 13:45] LABS: NT-Pro-B-Type Natriuretic Pept 209 pg/mL
[2024-08-26] MEDS: IV FLUID CONTINUATION 1,000 ML IV ONE ×2 (16:02→20:05)
[2024-08-26] MEDS ORDERED: ALBUMIN HUMAN 5% (25gm) 500 ML VIAL IVPB ONE (16:53)
[2024-08-26] MEDS ORDERED: PROPOFOL 10 MG/ML 20 ML VIAL IV ONE (16:53)
[2024-08-26] MEDS ORDERED: fentaNYL (PF) 50 MCG/ML 2 ML AMP ONE (16:53)
[2024-08-26] MEDS ORDERED: SUCCINYLCHOLINE CHLORIDE 200 MG/10 ML VIAL IV ONE (16:53)
[2024-08-26] MEDS ORDERED: GLYCOPYRROLATE 0.2 MG/ML 2 ML VIAL ONE (16:53)
[2024-08-26] MEDS ORDERED: NEOSTIGMINE 1 MG/ML 10 ML VIAL ONE (16:53)
[2024-08-26] MEDS ORDERED: LIDOCAINE 1% INJ 10MG/ML (20 ML MDV) ONE (16:53)
[2024-08-26] MEDS ORDERED: TRANEXAMIC 1,000 MG/100ML-NACL PREMIX BAG ONE (16:53)
[2024-08-26] MEDS ORDERED: ROCURONIUM 10 MG/ML (5 ML VIAL) IV ONE (16:53)
[2024-08-26] MEDS ORDERED: PHENYLEPHRINE 10 MG/ML VIAL ONE (16:53)
[2024-08-26] MEDS: LIDOCAINE 2%-EPI 1:100,000 20 ML VIAL SQ ONE (17:31)
[2024-08-26] MEDS: THROMBIN (BOVINE) 5,000 UNIT VIAL TOPICAL ONE (18:00)
[2024-08-26] MEDS: LACTATED RINGERS 1,000 ML IV ONE (18:11)
--- NOTE | 2024-08-26 18:49 | P.OP ---
Date of Procedure: 08/26/24 Preoperative Diagnosis: right basicervical femoral neck fracture Postoperative Diagnosis: same Procedure(s) Performed: intramedullary fixation of the right hip Implants: Synthes short TFNA Anesthesia: ANIYAHA Surgeon: Wilmar Smith Estimated Blood Loss (ml): 1,000 Pathology: none sent Condition: stable Disposition: PACU Indications for Procedure: displaced right basicervical femoral neck fracture Operative Findings: displaced right basicervial femoral neck fracture Description of Procedure: The patient was brought to the operating room, and after induction of general anesthesia the patient was placed supine on the Tamanna table. The right hip fracture was reduced with closed means with a combination of traction and internal rotation appropriate reduction of the fracture was confirmed with fluo roscopy. The [right] hip was then prepped and draped in a normal fashion. The appropriate starting point on the greater trochanter was initially identified with fluoroscopy a 3.2 mm guidepin was utilized to get the initial starting point for the opening reamer the opening reamer was then placed over the guidepin to open up the proximal aspect of the femur 13 mm reamer was then over a guidewire which was exchanged for the initial guidepin in order to adequately open the distal aspect of the canal to allow for ease of nail insertion the Synthes short 12mm femoral nail was then gently inserted into a proper depth for the femoral neck screw and additional pin was placed through the aiming jig in order to properly estimate the trajectory of the head screw on the lateral image. When the incision was made for the femoral head screw we did encounter some venous bleeding as we dissected through the vastus lateralis this was eventually able to be controlled with electrocautery as well as after the administration of TXA, prior to closure thrombin soaked gel foam was placed into the wound to aid in further hemostasis. Pin position was confirmed on AP and lateral films the guidepin for the head screw was then placed in appropriate position again confirmed with imaging screw was then predrilled drilled and an appropriate sized screw length selected and placed manual compression was then p erformed to further reduce the fracture the head screw was then locked in rotation but allowed for further controlled compression, attention was then placed to the distal interlocking screw the triple trocar was inserted and appropriate position confirmed with imaging the cortex was drilled and an appropriate size screw was placed and imaging confirmed once again on fluoroscopy guide was removed and final images demonstrated appropriate fracture reduction and position of the implants the wounds were copiously irrigated with normal saline and the wounds closed with deep absorbable sutures and skin closed with dana. sterile dressings were then applied patient was transported to the PACU in stable condition
--- NOTE | 2024-08-26 19:30 | XR ---
Fluoroscopy INDICATION: Pain FINDINGS: Fluoroscopy time: 1 minute and 35 seconds. Total dose area product (DAP) in uGy*m?, mGy*cm? (or similar): 9.6735 Images obtained: 5. Right hip pin has been placed for intertrochanteric fracture repair with a medullary kevin. IMPRESSION: 1. Documentation of fluoroscopy. [facility], Workstation: [email or web address], 08/26/2024 7:28 PM
[2024-08-26 20:49] LABS: Glucose,Whole Blood 100 mg/dL (70-110)
--- NOTE | 2024-08-26 23:19 | P.CONS ---
History of Present Illness - Reason for Consult Consult date: 08/26/24 Fever, fall, UTI Requesting physician: Clara Espinal - Chief Complaint Fall and right hip pain x 2 days - History of Present Illness Patient is a 73-year-old female with a past medical history significant for reflux hyperlipidemia osteoarthritis history of recurrent UTI ,patient has been brought to the hospital 2 days ago after apparently the patient did have a fall that happened the day of presentation to the hospital apparently the patient fell onto the floor striking her head but no loss of consciousness has been complaining of pain to the right hip area mostly dull aching to sharp moderate intensity without any radiation patient did have a low-grade fever 100.7 on admission to the hospital and did spike another fever of 100.1 F this morning patient was nontachycardic hypotensive or significant hypoxemia however currently on 2 L nasal cannula oxygen patient did have elevated white count of 11.2 with a left shift creatinine 0.75 liver isms are mildly elevated urine has been positive influenza RSV COVID testing has been negative patient did have ultrasound of the abdomen did not mention any acute abnormality to the liver and gallbladder was surgically absent chest x-ray with left basilar atelectasis however did have normal procalcitonin infectious disease was consulted today because of her low-grade fever elevated white count admission and need for antibiotic therapy Review of Systems Positive point and negatives has been mentioned in the HPI, complete review of systems was performed and all other systems are negative Past Medical History Past Medical History: GERD/Reflux, Hyperlipidemia, Osteoarthritis (OA) Additional Past Medical History / Comment(s): Raynauds, varicose veins, hx frequent UTI's, osteopenia. Hiatal hernia. 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 [facility] BSO was done for endometriosis and abnormal bleeding. History of Any Multi-Drug Resistant Organisms: None Reported Past Surgical History: Cholecystectomy, Heart Catheterization, Hysterectomy, Joint Replacement, Orthopedic Surgery, Tonsillectomy Additional Past Surgical History / Comment(s): D&C, Jonel knee replacements, jonel knee arthroscopy, jonel carpal tunnel, rt foot heel spur. [facility]ANKO BSO in 2002. Cardiac loop recorder placed in 2017. Colonoscopy 2019. Past Anesthesia/Blood Transfusion Reactions: Family History of Problems w/ Anesthesia Additional Past Anesthesia/Blood Transfusion Reaction / Comm: sister-pt not sure of what problems Smoking Status: Never smoker - Past Family History Mother Family Medical History: No Reported History Father Family Medical History: Congestive Heart Failure (CHF), Myocardial Infarction ([place]) Medications and Allergies Home Medications Medication Instructions Recorded Confirmed Type Simvastatin [Zocor] 20 mg PO HS 05/26/18 08/25/24 History clonazePAM 0.5 mg PO TID 09/04/20 08/25/24 History PARoxetine HCL [Paxil] 30 mg PO HS 11/15/23 08/25/24 History Furosemide [Lasix] 20 mg PO DAILY #30 tab 11/19/23 08/25/24 Rx OLANZapine [ZyPREXA] 10 mg PO HS 08/25/24 08/25/24 History Allergies Allergy/AdvReac Type Severity Reaction Status Date / Time No Known Allergies Allergy Verified 08/26/24 15:42 Physical Exam Vitals: Vital Signs Temp Pulse Pulse Resp BP BP Pulse Ox 08/26/24 07:15 100.1 F H 77 18 102/62 91 L 08/26/24 01:46 98.7 F 77 16 107/64 92 L 08/25/24 17:07 97.9 F 22 120/60 98 08/25/24 16:35 85 22 120/60 98 Intake and Output 08/25/24 08/26/24 08/26/24 22:59 06:59 14:59 Output Total 0 800 Balance 0 -800 Output: Urine 0 800 Other: Voiding Method Indwelling Catheter # Voids 0 Weight 61.689 kg GENERAL DESCRIPTION: Elderly female lying in bed, no distress. No tachypnea or accessory muscle of respiration use. HEENT: Shows Pallor , no scleral icterus. Oral mucous membrane is dry. No pharyngeal erythema or thrush NECK: Trachea central, no thyromegaly. LUNGS: Unlabored breathing. Decreased breath sound the base no wheeze or crackle. HEART: S1, S2, regular rate and rhythm. No loud murmur ABDOMEN: Soft, no right upper quadrant tenderness , no guarding or rigidity, no organomegaly EXTREMITIES: No edema of feet. SKIN: No rash, no masses palpable. NEUROLOGICAL: The patient is awake, alert, oriented x2, mood and affect normal. Results CBC & Chem 7: 08/26/24 09:24 08/26/24 09:24 Labs: Abnormal Lab Results - Last 24 Hours (Table) 08/26/24 08/26/24 Range/Units 09:24 09:24 RBC 2.76 L (3.80-5.40) m/uL Hgb 8.8 L D (11.4-16.0) gm/dL Hct 27.7 L (34.0-46.0) % MCV 100.4 H (80.0-100.0) fL Chloride 112 H (98-107) mmol/L BUN 31 H (7-17) mg/dL Calcium 7.6 L (8.4-10.2) mg/dL Assessment and Plan (1) Fever Current Visit: Yes Status: Acute Code(s): R50.9 - FEVER, UNSPECIFIED SNOMED Code(s): 235625374 (2) Leukocytosis Current Visit: Yes Status: Acute Code(s): D72.829 - ELEVATED WHITE BLOOD CELL COUNT, UNSPECIFIED SNOMED Code(s): 177627014 (3) UTI (urinary tract infection) Current Visit: Yes Status: Acute Code(s): N39.0 - URINARY TRACT INFECTION, SITE NOT SPECIFIED SNOMED Code(s): 60520730 Plan: 1patient presented to hospital with a fall in this patient who did have a right hip fracture patient also have low-grade fever and elevated white count questionably reactive to the fall/trauma or possible component of UTI as it is very hard to get any history as far as urinary symptoms are concerned from this patient and you do not have any other obvious focus of infection clinically not behaving as pneumonia she did have elevated liver enzymes with the patient is status post cholecystectomy and no tenderness right upper quadrant was noticed 2-we will continue the patient on empiric Rocephin while waiting for the workup to be completed this was discussed with the HEAD CONCIERGE for admitting team We will follow on clinical condition and cultures to further adjust medication if needed Thank you for this consultation we will follow the patient along with you Dictation was produced using [employer] dictation software. please excuse any grammatical, word or spelling errors. Time with Patient: Greater than 30
[2024-08-27 00:41] LABS: Basophils % (A) 0 %; Eosinophils % (A) 0 %; HCT 20.6 % (34.0-46.0); Lymphocytes # (A) 1.1 k/uL (1.0-4.8); Lymphocytes % (A) 14 %; MCH 32.1 pg (25.0-35.0); Mean Platelet Volume 8.2; Monocytes # (A) 0.5 k/uL (0-1.0); Monocytes % (A) 6 %; Neutrophils # (A) 5.8 k/uL (1.3-7.7); Neutrophils % (A) 77 %; Platelet Count 137 k/uL (150-450); Poikilocytosis Slight; RBC 2.18 m/uL (3.80-5.40); RDW 14.3 % (11.5-15.5); WBC 7.5 k/uL (3.8-10.6)
[2024-08-27 00:42] LABS: MCV 94.4 fL (80.0-100.0)
--- NOTE | 2024-08-27 01:34 | FL ---
EXAMINATION TYPE: FL guidance operating room DATE OF EXAM: 08/26/2024 CLINICAL HISTORY: Right hip fracture TECHNIQUE: Fluoroscopy. COMPARISON: None. FINDINGS: Fluoroscopic guidance was provided during open reduction and internal fixation procedure p erformed by Dr. Smith. A total of 95 seconds of fluoroscopic time was utilized during the procedure and 0 spot images was acquired. Total dose area product (DAP) in uGy*m?, mGy*cm? (or similar: 9.6735 . IMPRESSION: As Above. [facility], , 08/27/2024 1:32 AM
--- NOTE | 2024-08-27 05:42 | P.PN ---
Subjective Progress Note Date: 08/26/24 HISTORY OF PRESENT ILLNESS: 73-year-old office patient with active medical history of CVA/TIA, recurrent urinary tract infection, multiple falls with recurrent rhabdomyolysis, hyperlipidemia, Severe osteoarthritis, severe hiatal hernia, recurrent chronic abdominal pain with IBS and chronic diarrhea with negative study since 2019, multiple episode of syncope with previous history of heart cath and loop recorder monitor, chronic depression which patient seen counselor on more regular basis and has been doing slightly better with medication. Significant weight loss last few years with negative study for CA. She apparently sustained a fall and had according to her she was walking in her then in the house when she felt very weak and fell into the floor striking her head sustaining a slight laceration above her eye on the right side and the lip area. With no other injury she was extremely weak bleeding she called 911 EMS To the scene was transferred to the emergency department at [facility] where was seen and evaluated CAT scan of the brain and the face shows mild scalp edema suggested mild right facial and periorbital edema with no evidence of facial fracture moderate multilevel degenerative disc disease with no fracture was found. She had her laceration in the right periorbit blue at the time patient continue to have severe weakness not been able to ambulate or walk start hydration she has mildly elevated white blood cell at 11,200 with left shift. Is very positive for UTI surprisingly had significantly abnormal liver function test with AST of 303 ALT of 41 with bilirubin at 1.5 blood sugar is borderline normal kidney function at the time mild anemia. Will order an ultrasound of the abdomen if needed a CAT scan patient will be hospitalized continue hydration watch symptoms carefully start patient on 1 g of Rocephin for UTI. Also patient is complaining of increased right hip pain and leg pain x-ray of both hip and the femur will be done to make sure is no fracture. 08/26/2024 Patient is seen and evaluated in follow-up this morning with orthopedics following as patient did have right hip pain and underwent imaging which displayed a right displaced femoral neck fracture. Currently n.p.o. and orthopedics following recommending surgical intervention this afternoon pos tmedical clearance. Per patient's primary care provider Dr. Ledesma patient was considered high risk although medically clear for surgical intervention to improve quality of life. Patient is alert and oriented x 3 and although given significant risks that were explained, patient is willing to proceed with surgical intervention. Patient is reporting right hip pain although not intense when not being touched or not moving. Right lower extremity is noted to be externally rotated and shortened and maintained on a pillow for comfort. Patient is having some fevers low-grade of 100.1 and requiring 2 to 3 L of oxygen and patient reports she does not wear oxygen normally, will obtain a chest x-ray and also BNP along with procalcitonin. Patient is currently maintained on ceftriaxone for urinary tract infection and cultures are pending at this time. LFTs are elevated and will repeat labs. Infectious disease also consulted and appreciate input and recommendations. Review of systems: Constitutional: No reports of fatigue, reports low-grade fever, or chills Cardiovascular: No reports of chest pain or palpitations Respiratory: reports of mild shortness of breath, weak cough GI: No reports of nausea, vomiting, or diarrhea : No reports of dysuria or retention Neurovascular: reports of generalized weakness and right hip pain All medications have been reviewed PHYSICAL EXAMINATION: General Appearance: Alert, malaised, cooperative, ill-appearing, elderly appearing. Slightly bit anxious. Neck HEENT: Supple, no lymphadenopathy, no thyroid enlargement, no carotid bruits. Significant bruise over the right periorbital area with laceration looks glued still have slight hematoma and bruise around it. Facial swelling noted significantly on the left Lungs: Diminished breath sounds bilaterally with a few faint crackles noted at the bases with some bronchial congestion Chest Wall: Chest wall normal expansion with deep inspiration no tenderness and no deformity was found on exam, no costochondral pain or discomfort. Heart: S1, S2 are muffled Back: Symmetric, no curvature, ROM normal, no CVA tenderness. Abdomen: Soft, non-tender, bowel sounds active slight discomfort in the right upper quadrant area and mid abdominal area no rebound or rigidity. Extremities: Right lower extremity noted to be externally rotated and shortened, positive pulses noted, no significant swelling noted bilaterally Pulses: 2+ and symmetric. Skin: Skin color pale, texture, tugor normal, no rashes or lesions. Neurologic: Alert oriented x3 cranial nerves II through XII intact, diffusely weak ASSESSMENT AND PLAN: _Multiple fall with closed head trauma: CT of the brain does not show any bleed, patient was hospitalized after laceration was treated will continue neuroexam for the next 24 hours every 4 hours continue to watch for any altered mental status or any change. _Altered mental status: Secondary to UTI and probably for close head trauma again continue to watch symptoms carefully. _? Of parkinsonism: Patient has been having more tremor with abnormal balance and gait and facial expression typical for Parkinson disease will consult neurology for the altered mental status and for possible parkinsonism. _UTI with no sign of sepsis at this point, patient will be on Rocephin 1 g daily waiting for the final culture. _Abnormal liver function test with AST to ALT AST to 1 type C normally from alcoholism and up till now I have no suspicion that patient is an alcoholic will need to be watch sadly ER did not send any alcohol level or drug screen. Liver function test will be repeated again along with ultrasound. Remains elevated although currently trending down. Patient is not a drinker _Right hip injury: With right femoral fracture noted on imaging, scheduled to undergo surgery today 08/26/2024. Patient is considered high risk given comorbidities and there is a low-grade temp, obtaining chest x-ray and also infectious disease evaluation. Risks versus benefits explained and patient is willing to proceed with surgery. _Severe depression: Has been seen psych still on Paxil along with olanzapine along with Cogentin resume medication. _Hyperlipidemia: Continue patient on Zocor 20 mg daily. _Chronic IBS with recurrent abdominal pain has seen gastroenterology on regular basis multiple scope in the past and CAT scan still on MiraLAX apparently and OTC IBS medication. _Chronic edema: Still on furosemide 20 mg a day. _GI prophylaxis: Continue pantoprazole 40 mg a day. _DVT prophylaxis: Knee-high WILL hose and early mobilization. CODE STATUS: Full code. Plan: Patient being evaluated by orthopedics for right femur fracture and is scheduled to undergo intervention today. Patient noted to have low-grade temps along with requiring some supplemental oxygen, will obtain chest x-ray and also encourage incentive spirometer use at least 10 times every hour while awake. Obtain a BNP along with procalcitonin and also consult infectious disease and appreciate input and recommendations. Further discussion was had with other consults and although given significant comorbidities, patient is considered moderate to high risk for surgical intervention and these were explained in detail to the patient and patient is willing to proceed with surgical intervention to improve quality of life. Patient was ambulatory prior to this although having more frequent falls. Neurology evaluation pending with concerns of Parkinson's per PCP Will monitor closely with repeat labs in the a.m. and continue ceftriaxone while waiting for urine cultures to finalize. Procalcitonin was minimally elevated and BNP was 209. Monitor closely with IV fluids Await PT/OT therapy evaluation postop and also case management on consult for possible ECF needs Covering for Dr. Ledesma The impression and plan of care has been dictated by Clara Espinal, Nurse Practitioner as directed. Dr. Parminder MD I have performed a history and examination and MDM of this patient, discussed the same with the dictator, and agree with the dictator's assessment and plan as written ,documented as a scribe. Based on total visit time, I have performed more than 50% of the visit. Objective - Vital Signs Vital signs: Vital Signs Temp 100.1 F H 08/26/24 07:15 Pulse 77 08/26/24 07:15 Resp 18 08/26/24 07:15 BP 102/62 08/26/24 07:15 Pulse Ox 91 L 08/26/24 07:15 FiO2 Intake & Output 08/25/24 08/26/24 08/26/24 18:59 06:59 18:59 Output Total 0 800 Balance 0 -800 Weight 61.689 kg Output: Urine 0 800 Other: Voiding Method Indwelling Catheter # Voids 0 - Labs CBC & Chem 7: 08/27/24 00:08 08/26/24 09:24
--- NOTE | 2024-08-27 08:44 | P.PN ---
Subjective Progress Note Date: 08/27/24 Principal diagnosis: Closed right hip fracture s/p intramedullary fixation on 08/26/2024. Patient had low hemoglobins overnight, received 2 transfusions, and has been doing well since then per nursing staff. Patient was awake, alert, but continues to have mildly delayed speech when examined at bedside this morning. She did not complain of right hip pain. She was sitting up in bed and eating breakfast. Objective - Vital Signs Vital signs: Vital Signs Temp 98.7 F 08/27/24 08:08 Pulse 83 08/27/24 08:08 Resp 18 08/27/24 08:08 BP 106/59 08/27/24 08:08 Pulse Ox 98 08/27/24 08:08 FiO2 98 08/26/24 19:30 Intake & Output 08/26/24 08/27/24 08/27/24 18:59 06:59 18:59 Intake Total 1350 1530 10 Output Total 1900 850 300 Balance -550 680 -290 Weight 56.5 kg Intake: IV 1350 600 10 Invasive Line 1 10 Blood Product 0 930 Rc As-1 Unit 310 [id number] Rc As-1 Unit 0 310 [id number] Rc As-1 Unit 310 [id number] Output: Urine 900 850 300 Estimated Blood Loss 1000 Other: Voiding Method Indwelling Catheter Indwelling Catheter - Exam Patient was examined at bedside's morning. Patient was awake, alert and able to answer questions. On exam there is multiple surgical dressings on the right hip and thigh, they are all clean, dry, intact. The proximal dressing has a mild amount of strikethrough. Mild swelling in the right thigh. Patient's right femoral nerve function is grossly intact. Patient is able to plantarflex and dorsiflex the right ankles and toes. Patient's right lower extremity appears well-perfused with capillary refill is under 2 seconds. - Labs CBC & Chem 7: 08/27/24 08:23 08/27/24 08:23 Labs: Abnormal Lab Results - Last 24 Hours (Table) 08/26/24 08/26/24 08/26/24 Range/Units 09:24 09:24 09:27 RBC 2.76 L (3.80-5.40) m/uL Hgb 8.8 L D (11.4-16.0) gm/dL Hct 27.7 L (34.0-46.0) % MCV 100.4 H (80.0-100.0) fL Plt Count (150-450) k/uL Chloride 112 H (98-107) mmol/L BUN 31 H (7-17) mg/dL Calcium 7.6 L (8.4-10.2) mg/dL AST (14-36) U/L ALT (4-34) U/L Crossmatch See Detail 08/26/24 08/27/24 Range/Units 13:05 00:08 RBC 2.18 L (3.80-5.40) m/uL Hgb 7.0 L D (11.4-16.0) gm/dL Hct 20.6 L (34.0-46.0) % MCV (80.0-100.0) fL Plt Count 137 L (150-450) k/uL Chloride (98-107) mmol/L BUN (7-17) mg/dL Calcium (8.4-10.2) mg/dL AST 212 H (14-36) U/L ALT 93 H (4-34) U/L Crossmatch Assessment and Plan Assessment: Postop day #1 Closed right hip fracture status post intramedullary fixation on 08/26/[address] Wilmar Smith Plan: Leave dressings in place. Please contact our service if they become saturated. Patient may weight-bear as tolerated with walker and assistance. Patient will work with physical therapy. We appreciate medical team for medical management. Dispo: anticipate patient needing rehab. Was seen and examined by myself as well as the physician assistant to the ceo, agree with the above-stated interval history and exam patient is resting comfortably in bed the right thigh soft and compressible she has intact motor and sensation to the right lower extremity, encourage PT evaluation today to allow patient to mobilize she can bear full weight, recommend aspirin 81 mg twice daily for DVT prophylaxis for 30 days postoperatively.
[2024-08-27 08:52] LABS: HCT 26.7 % (34.0-46.0); MCH 31.2 pg (25.0-35.0); MCHC 32.7 g/dL (31.0-37.0); MCV 95.3 fL (80.0-100.0); Mean Platelet Volume 7.6; Platelet Count 143 k/uL (150-450); Poikilocytosis Slight; RDW 14.3 % (11.5-15.5); WBC 6.2 k/uL (3.8-10.6)
[2024-08-27 09:13] LABS: ALT 55 U/L (4-34); AST 117 U/L (14-36); African American GFR (CKD) >90 (>60 ml/min/1.73 sqM); Albumin 2.2 g/dL (3.5-5.0); Alkaline Phosphatase 45 U/L (38-126); Anion Gap -1 mmol/L; Blood Urea Nitrogen 18 mg/dL (7-17); Calcium 7.2 mg/dL (8.4-10.2); Carbon Dioxide 27 mmol/L (22-30); Chloride 112 mmol/L (98-107); Glucose 139 mg/dL (74-99); Non-African American GFR(CKD) >90 (>60 ml/min/1.73 sqM); Potassium 3.4 mmol/L (3.5-5.1); Sodium 138 mmol/L (137-145); Total Bilirubin 1.6 mg/dL (0.2-1.3); Total Protein 4.1 g/dL (6.3-8.2)
[2024-08-27 09:15] LABS: HGB 8.7 gm/dL (11.4-16.0)
[2024-08-27] MEDS: ASPIRIN 81 MG PO SCH (10:05)
[2024-08-27] MEDS: POTASSIUM CHLORIDE ER 20 MEQ TAB.ER PO STA (11:29)
--- NOTE | 2024-08-27 14:17 | P.PN ---
Subjective Progress Note Date: 08/27/24 73-year-old office patient with active medical history of CVA/TIA, recurrent urinary tract infection, multiple falls with recurrent rhabdomyolysis, hyperlipidemia, Severe osteoarthritis, severe hiatal hernia, recurrent chronic abdominal pain with IBS and chronic diarrhea with negative study since 2019, mul tiple episode of syncope with previous history of heart cath and loop recorder monitor, chronic depression which patient seen counselor on more regular basis and has been doing slightly better with medication. Significant weight loss last few years with negative study for CA. She apparently sustained a fall and had according to her she was walking in her then in the house when she felt very weak and fell into the floor striking her head sustaining a slight laceration above her eye on the right side and the lip area. With no other injury she was extremely weak bleeding she called 911 EMS To the scene was transferred to the emergency department at [facility] where was seen and evaluated CAT scan of the brain and the face shows mild scalp edema suggested mild right facial and periorbital edema with no evidence of facial fracture moderate multilevel degenerative disc disease with no fracture was found. She had her laceration in the right periorbit blue at the time patient continue to have severe weakness not been able to ambulate or walk start hydration she has mildly elevated white blood cell at 11,200 with left shift. Is very positive for UTI surprisingly had significantly abnormal liver function test with AST of 303 ALT of 41 with bilirubin at 1.5 blood sugar is borderline normal kidney function at the time mild anemia. Will order an ultrasound of the abdomen if needed a CAT scan patient will be hospitalized continue hydration watch symptoms carefully start patient on 1 g of Rocephin for UTI. Also patient is complaining of increased right hip pain and leg pain x-ray of thierry th hip and the femur will be done to make sure is no fracture. 08/26/2024 Patient is seen and evaluated in follow-up this morning with orthopedics following as patient did have right hip pain and underwent imaging which displayed a right displaced femoral neck fracture. Currently n.p.o. and orthop edics following recommending surgical intervention this afternoon postmedical clearance. Per patient's primary care provider Dr. Ledesma patient was considered high risk although medically clear for surgical intervention to improve quality of life. Patient is alert and oriented x 3 and although given significant risks that were explained, patient is willing to proceed with surgical intervention. Patient is reporting right hip pain although not intense when not being touched or not moving. Right lower extremity is noted to be externally rotated and shortened and maintained on a pillow for comfort. Patient is having some fevers low-grade of 100.1 and requiring 2 to 3 L of oxygen and patient reports she does not wear oxygen normally, will obtain a chest x-ray and also BNP along with procalcitonin. Patient is currently maintained on ceftriaxone for urinary tract infection and cultures are pending at this time. LFTs are elevated and will repeat labs. Infectious disease also consulted and appreciate input and recommendations. 08/27. Patient seen and examined. Blood work done this morning showed WBC 6.2, hemoglobin 8.7, platelet count 143, sodium 138, potassium 3.4, BUN 18, creat inine 0.5. Patient had low hemoglobin overnight of 7 received 2 units of packed red blood cells overnight patient also had a unit of blood after surgery, in total 3 so far. Vital signs stable REVIEW OF SYSTEMS: CONSTITUTIONAL: No fever, no malaise,. CARDIOVASCULAR: No chest pain, no palpitations, no syncope. PULMONARY: No shortness of breath, no cough, GASTROINTESTINAL: No diarrhea, no nausea, no vomiting, no abdominal pain. NEUROLOGICAL: No headaches, no weakness, PHYSICAL EXAMINATION: GENERAL: The patient is alert and oriented x3, not in any acute distress. Well developed, well nourished. HEENT: Pupils are round and equally reacting to light. EOMI. No scleral icterus. No conjunctival pallor. Normocephalic, atraumatic. No pharyngeal erythema. No thyromegaly. CARDIOVASCULAR: S1 and S2 present. No murmurs, rubs, or gallops. PULMONARY: Chest is clear to auscultation, no wheezing or crackles. ABDOMEN: Soft, nontender, nondistended, normoactive bowel sounds. No palpable or ganomegaly. MUSCULOSKELETAL: No joint swelling or deformity. EXTREMITIES: No cyanosis, clubbing, or pedal edema. Right hip surgical incision seen NEUROLOGICAL: Gross neurological examination did not reveal any focal deficits. SKIN: No rashes. 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 Continue same treatment. Continue with symptomatic treatment. Resume home medication. Monitor labs and vitals. DVT and GI prophylaxis. Further recommendations as per clinical course of the patient Dictation was produced using [employer] dictation software. please excuse any grammatical, word or spelling errors. Objective - Vital Signs Vital signs: Vital Signs Temp 98.7 F 08/27/24 08:08 Pulse 83 08/27/24 08:08 Resp 18 08/27/24 08:08 BP 106/59 08/27/24 08:08 Pulse Ox 98 08/27/24 08:08 FiO2 98 08/26/24 19:30 Intake & Output 08/26/24 08/27/24 08/27/24 18:59 06:59 18:59 Intake Total 1350 1530 10 Output Total 1900 850 300 Balance -550 680 -290 Weight 56.5 kg Intake: IV 1350 600 10 Invasive Line 1 10 Blood Product 0 930 Rc As-1 Unit 310 [id number] Rc As-1 Unit 0 310 [id number] Rc As-1 Unit 310 [id number] Output: Urine 900 850 300 Estimated Blood Loss 1000 Other: Voiding Method Indwelling Catheter Indwelling Catheter - Labs CBC & Chem 7: 08/27/24 08:23 08/27/24 08:23 Labs: Abnormal Lab Results - Last 24 Hours (Table) 08/26/24 08/26/24 08/26/24 Range/Units 09:24 09:24 09:27 RBC 2.76 L (3.80-5.40) m/uL Hgb 8.8 L D (11.4-16.0) gm/dL Hct 27.7 L (34.0-46.0) % MCV 100.4 H (80.0-100.0) fL Plt Count (150-450) k/uL Potassium (3.5-5.1) mmol/L Chloride 112 H (98-107) mmol/L BUN 31 H (7-17) mg/dL Creatinine (0.52-1.04) mg/dL Glucose (74-99) mg/dL Calcium 7.6 L (8.4-10.2) mg/dL Total Bilirubin (0.2-1.3) mg/dL AST (14-36) U/L ALT (4-34) U/L Total Protein (6.3-8.2) g/dL Albumin (3.5-5.0) g/dL Crossmatch See Detail 08/26/24 08/27/24 08/27/24 Range/Units 13:05 00:08 08:23 RBC 2.18 L 2.80 L (3.80-5.40) m/uL Hgb 7.0 L D 8.7 L D (11.4-16.0) gm/dL Hct 20.6 L 26.7 L (34.0-46.0) % MCV (80.0-100.0) fL Plt Count 137 L 143 L (150-450) k/uL Potassium (3.5-5.1) mmol/L Chloride (98-107) mmol/L BUN (7-17) mg/dL Creatinine (0.52-1.04) mg/dL Glucose (74-99) mg/dL Calcium (8.4-10.2) mg/dL Total Bilirubin (0.2-1.3) mg/dL AST 212 H (14-36) U/L ALT 93 H (4-34) U/L Total Protein (6.3-8.2) g/dL Albumin (3.5-5.0) g/dL Crossmatch 08/27/24 Range/Units 08:23 RBC (3.80-5.40) m/uL Hgb (11.4-16.0) gm/dL Hct (34.0-46.0) % MCV (80.0-100.0) fL Plt Count (150-450) k/uL Potassium 3.4 L (3.5-5.1) mmol/L Chloride 112 H (98-107) mmol/L BUN 18 H (7-17) mg/dL Creatinine 0.50 L (0.52-1.04) mg/dL Glucose 139 H (74-99) mg/dL Calcium 7.2 L (8.4-10.2) mg/dL Total Bilirubin 1.6 H (0.2-1.3) mg/dL AST 117 H (14-36) U/L ALT 55 H (4-34) U/L Total Protein 4.1 L (6.3-8.2) g/dL Albumin 2.2 L (3.5-5.0) g/dL Crossmatch
[2024-08-28 07:57] LABS: HCT 25.5 % (34.0-46.0); HGB 8.7 gm/dL (11.4-16.0); Hypochromasia Slight; MCH 32.7 pg (25.0-35.0); MCV 96.2 fL (80.0-100.0); Mean Platelet Volume 7.6; Platelet Count 148 k/uL (150-450); Poikilocytosis Slight; RBC 2.65 m/uL (3.80-5.40); RDW 14.7 % (11.5-15.5); WBC 5.7 k/uL (3.8-10.6)
[2024-08-28 08:12] LABS: African American GFR (CKD) >90 (>60 ml/min/1.73 sqM); Anion Gap 2 mmol/L; Blood Urea Nitrogen 15 mg/dL (7-17); Calcium 7.4 mg/dL (8.4-10.2); Carbon Dioxide 28 mmol/L (22-30); Chloride 109 mmol/L (98-107); Glucose 92 mg/dL (74-99); Non-African American GFR(CKD) >90 (>60 ml/min/1.73 sqM); Potassium 3.6 mmol/L (3.5-5.1); Sodium 139 mmol/L (137-145)
--- NOTE | 2024-08-28 08:31 | P.PN ---
Subjective Progress Note Date: 08/28/24 Principal diagnosis: Closed right hip fracture s/p intramedullary fixation on 08/26/2024. 08/27/2024 Patient had low hemoglobins overnight, received 2 transfusions, and has been doing well since then per nursing staff. Patient was awake, alert, but continues to have mildly delayed speech when examined at bedside this morning. She did not complain of right hip pain. She was sitting up in bed and eating breakfast. 08/28/2024 Patient was awake, alert, but continues to have mildly delayed speech when examined at bedside this morning. She did not complain of right hip pain. She was sitting up in bed and eating breakfast. Objective - Vital Signs Vital signs: Vital Signs Temp 99.6 F 08/28/24 04:00 Pulse 86 08/28/24 04:00 Resp 16 08/28/24 04:00 BP 106/66 08/28/24 04:00 Pulse Ox 93 L 08/28/24 04:00 FiO2 98 08/26/24 19:30 Intake & Output 08/27/24 08/28/24 08/28/24 18:59 06:59 18:59 Intake Total 242 Output Total 650 450 Balance -408 -450 Weight 56 kg Intake: IV 20 Invasive Line 1 10 Invasive Line 2 10 Oral 222 Output: Urine 650 450 Other: Voiding Method Indwelling Catheter Indwelling Catheter # Bowel Movements 0 - Exam Patient was examined at bedside's morning. Patient was awake, alert and able to answer questions. On exam there is multiple surgical dressings on the right hip and thigh, they are all clean, dry, intact. The proximal dressing has a mild amount of strikethrough. Mild swelling in the right thigh. Patient's right femoral nerve function is grossly intact. Patient is able to plantarflex and dorsiflex the right ankles and toes. Patient's right lower extremity appears well-perfused with capillary refill is under 2 seconds. - Labs CBC & Chem 7: 08/28/24 07:18 08/28/24 07:18 Labs: Abnormal Lab Results - Last 24 Hours (Table) 08/27/24 08/27/24 08/28/24 Range/Units 08:23 08:23 07:18 RBC 2.80 L 2.65 L (3.80-5.40) m/uL Hgb 8.7 L D 8.7 L (11.4-16.0) gm/dL Hct 26.7 L 25.5 L (34.0-46.0) % Plt Count 143 L 148 L (150-450) k/uL Potassium 3.4 L (3.5-5.1) mmol/L Chloride 112 H (98-107) mmol/L BUN 18 H (7-17) mg/dL Creatinine 0.50 L (0.52-1.04) mg/dL Glucose 139 H (74-99) mg/dL Calcium 7.2 L (8.4-10.2) mg/dL Total Bilirubin 1.6 H (0.2-1.3) mg/dL AST 117 H (14-36) U/L ALT 55 H (4-34) U/L Total Protein 4.1 L (6.3-8.2) g/dL Albumin 2.2 L (3.5-5.0) g/dL 08/28/24 Range/Units 07:18 RBC (3.80-5.40) m/uL Hgb (11.4-16.0) gm/dL Hct (34.0-46.0) % Plt Count (150-450) k/uL Potassium (3.5-5.1) mmol/L Chloride 109 H (98-107) mmol/L BUN (7-17) mg/dL Creatinine (0.52-1.04) mg/dL Glucose (74-99) mg/dL Calcium 7.4 L (8.4-10.2) mg/dL Total Bilirubin (0.2-1.3) mg/dL AST (14-36) U/L ALT (4-34) U/L Total Protein (6.3-8.2) g/dL Albumin (3.5-5.0) g/dL Assessment and Plan Assessment: Postop day #2 Closed right hip fracture status post intramedullary fixation on 08/26/[address] Wilmar Smith Plan: Leave dressings in place. Please contact our service if they become saturated. Patient may weight-bear as tolerated with walker and assistance. Patient will work with physical therapy. We appreciate medical team for medical management. Dispo: anticipate patient needing rehab.
--- NOTE | 2024-08-28 13:01 | P.PN ---
Subjective Progress Note Date: 08/28/24 73-year-old office patient with active medical history of CVA/TIA, recurrent urinary tract infection, multiple falls with recurrent rhabdomyolysis, hyperlipidemia, Severe osteoarthritis, severe hiatal hernia, recurrent chronic abdominal pain with IBS and chronic diarrhea with negative study since 2019, mul tiple episode of syncope with previous history of heart cath and loop recorder monitor, chronic depression which patient seen counselor on more regular basis and has been doing slightly better with medication. Significant weight loss last few years with negative study for CA. She apparently sustained a fall and had according to her she was walking in her then in the house when she felt very weak and fell into the floor striking her head sustaining a slight laceration above her eye on the right side and the lip area. With no other injury she was extremely weak bleeding she called 911 EMS To the scene was transferred to the emergency department at [facility] where was seen and evaluated CAT scan of the brain and the face shows mild scalp edema suggested mild right facial and periorbital edema with no evidence of facial fracture moderate multilevel degenerative disc disease with no fracture was found. She had her laceration in the right periorbit blue at the time patient continue to have severe weakness not been able to ambulate or walk start hydration she has mildly elevated white blood cell at 11,200 with left shift. Is very positive for UTI surprisingly had significantly abnormal liver function test with AST of 303 ALT of 41 with bilirubin at 1.5 blood sugar is borderline normal kidney function at the time mild anemia. Will order an ultrasound of the abdomen if needed a CAT scan patient will be hospitalized continue hydration watch symptoms carefully start patient on 1 g of Rocephin for UTI. Also patient is complaining of increased right hip pain and leg pain x-ray of thierry th hip and the femur will be done to make sure is no fracture. 08/26/2024 Patient is seen and evaluated in follow-up this morning with orthopedics following as patient did have right hip pain and underwent imaging which displayed a right displaced femoral neck fracture. Currently n.p.o. and orthop edics following recommending surgical intervention this afternoon postmedical clearance. Per patient's primary care provider Dr. Ledesma patient was considered high risk although medically clear for surgical intervention to improve quality of life. Patient is alert and oriented x 3 and although given significant risks that were explained, patient is willing to proceed with surgical intervention. Patient is reporting right hip pain although not intense when not being touched or not moving. Right lower extremity is noted to be externally rotated and shortened and maintained on a pillow for comfort. Patient is having some fevers low-grade of 100.1 and requiring 2 to 3 L of oxygen and patient reports she does not wear oxygen normally, will obtain a chest x-ray and also BNP along with procalcitonin. Patient is currently maintained on ceftriaxone for urinary tract infection and cultures are pending at this time. LFTs are elevated and will repeat labs. Infectious disease also consulted and appreciate input and recommendations. 08/27. Patient seen and examined. Blood work done this morning showed WBC 6.2, hemoglobin 8.7, platelet count 143, sodium 138, potassium 3.4, BUN 18, creat inine 0.5. Patient had low hemoglobin overnight of 7 received 2 units of packed red blood cells overnight patient also had a unit of blood after surgery, in total 3 so far. Vital signs stable 08/28. Patient seen and examined. Blood work showed hemoglobin of 8.7, sodium 139, potassium 3.6, BUN 15, creatinine 0.52. States she feels better REVIEW OF SYSTEMS: CONSTITUTIONAL: No fever, no malaise,. CARDIOVASCULAR: No chest pain, no palpitations, no syncope. PULMONARY: No shortness of breath, no cough, GASTROINTESTINAL: No diarrhea, no nausea, no vomiting, no abdominal pain. NEUROLOGICAL: No headaches, no weakness, PHYSICAL EXAMINATION: GENERAL: The patient is alert and oriented x3, ill looking HEENT: Pupils are round and equally reacting to light. EOMI. No scleral icterus. No conjunctival pallor. Normocephalic, atraumatic. No pharyngeal erythema. No thyromegaly. CARDIOVASCULAR: S1 and S2 present. No murmurs, rubs, or gallops. PULMONARY: Chest is clear to auscultation, no wheezing or crackles. ABDOMEN: Soft, nontender, nondistended, normoactive bowel sounds. No palpable organomegaly. MUSCULOSKELETAL: No joint swelling or deformity. EXTREMITIES: No cyanosis, clubbing, or pedal edema. Right hip surgical incision seen NEUROLOGICAL: Gross neurological examination did not reveal any focal deficits. SKIN: No rashes. 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 Continue same treatment. Continue with symptomatic treatment. Resume home medication. Monitor labs and vitals. DVT and GI prophylaxis. Further recommendations as per clinical course of the patie nt Dictation was produced using [employer] dictation software. please excuse any grammatical, word or spelling errors. Objective - Vital Signs Vital signs: Vital Signs Temp 98.4 F 08/28/24 11:24 Pulse 75 08/28/24 11:24 Resp 16 08/28/24 11:24 BP 100/58 08/28/24 11:24 Pulse Ox 93 L 08/28/24 11:24 FiO2 98 08/26/24 19:30 Intake & Output 08/27/24 08/28/24 08/28/24 18:59 06:59 18:59 Intake Total 242 10 Output Total 650 450 200 Balance -408 -450 -190 Weight 56 kg Intake: IV 20 10 Invasive Line 1 10 10 Invasive Line 2 10 Oral 222 Output: Urine 650 450 200 Other: Voiding Method Indwelling Catheter Indwelling Catheter Indwelling Catheter # Bowel Movements 0 - Labs CBC & Chem 7: 08/28/24 07:18 08/28/24 07:18 Labs: Abnormal Lab Results - Last 24 Hours (Table) 08/28/24 08/28/24 Range/Units 07:18 07:18 RBC 2.65 L (3.80-5.40) m/uL Hgb 8.7 L (11.4-16.0) gm/dL Hct 25.5 L (34.0-46.0) % Plt Count 148 L (150-450) k/uL Chloride 109 H (98-107) mmol/L Calcium 7.4 L (8.4-10.2) mg/dL
--- NOTE | 2024-08-28 13:31 | P.PN ---
Subjective Progress Note Date: 08/27/24 Principal diagnosis: Reason for follow-up is fever question of reactive versus UTI Patient is a 73-year-old female with a past medical history significant for reflux hyperlipidemia osteoarthritis history of recurrent UTI ,patient has been brought to the hospital after the patient did have a fall and has been diagnosed with the right hip fracture he did have a fever probably this consultation. Patient is status post intramedullary fixation of the right hip fracture completed on 08/26/2024 On today's evaluation that is 08/27/2024,the patient did have a low-grade fever of 100.1 F at 2 AM the patient is afebrile since then she is breathing comfortably on room air denies any chest pain no cough no abdominal pain no diarrhea pain to the hip. Patient did have a white count of 6.2 creatinine 0.50 Objective - Vital Signs Vital signs: Vital Signs Temp 99.8 F H 08/27/24 20:00 Pulse 78 08/27/24 20:00 Resp 16 08/27/24 20:00 BP 110/61 08/27/24 20:00 Pulse Ox 95 08/27/24 20:00 FiO2 98 08/26/24 19:30 Intake & Output 08/27/24 08/27/24 08/28/24 06:59 18:59 06:59 Intake Total 1530 242 Output Total 850 650 Balance 680 -408 Weight 56.5 kg Intake: IV 600 20 Invasive Line 1 10 Invasive Line 2 10 Oral 222 Blood Product 930 Rc As-1 Unit 310 [id number] Rc As-1 Unit 310 [id number] Rc As-1 Unit 310 [id number] Output: Urine 850 650 Other: Voiding Method Indwelling Catheter Indwelling Catheter Indwelling Catheter - Exam GENERAL DESCRIPTION: An elderly female lying in bed in no distress RESPIRATORY SYSTEM: Unlabored breathing , decreased breath sounds at bases HEART: S1 S2 regular rate and rhythm , ABDOMEN: Soft , no tenderness EXTREMITIES: No edema feet - Labs CBC & Chem 7: 08/28/24 07:18 08/28/24 07:18 Labs: Abnormal Lab Results - Last 24 Hours (Table) 08/26/24 08/27/24 08/27/24 Range/Units 09:27 00:08 08:23 RBC 2.18 L 2.80 L (3.80-5.40) m/uL Hgb 7.0 L D 8.7 L D (11.4-16.0) gm/dL Hct 20.6 L 26.7 L (34.0-46.0) % Plt Count 137 L 143 L (150-450) k/uL Potassium (3.5-5.1) mmol/L Chloride (98-107) mmol/L BUN (7-17) mg/dL Creatinine (0.52-1.04) mg/dL Glucose (74-99) mg/dL Calcium (8.4-10.2) mg/dL Total Bilirubin (0.2-1.3) mg/dL AST (14-36) U/L ALT (4-34) U/L Total Protein (6.3-8.2) g/dL Albumin (3.5-5.0) g/dL Crossmatch See Detail 08/27/24 Range/Units 08:23 RBC (3.80-5.40) m/uL Hgb (11.4-16.0) gm/dL Hct (34.0-46.0) % Plt Count (150-450) k/uL Potassium 3.4 L (3.5-5.1) mmol/L Chloride 112 H (98-107) mmol/L BUN 18 H (7-17) mg/dL Creatinine 0.50 L (0.52-1.04) mg/dL Glucose 139 H (74-99) mg/dL Calcium 7.2 L (8.4-10.2) mg/dL Total Bilirubin 1.6 H (0.2-1.3) mg/dL AST 117 H (14-36) U/L ALT 55 H (4-34) U/L Total Protein 4.1 L (6.3-8.2) g/dL Albumin 2.2 L (3.5-5.0) g/dL Crossmatch Assessment and Plan (1) Fever Current Visit: Yes Status: Acute Code(s): R50.9 - FEVER, UNSPECIFIED SNOMED Code(s): 350062701 (2) Leukocytosis Current Visit: Yes Status: Acute Code(s): D72.829 - ELEVATED WHITE BLOOD CELL COUNT, UNSPECIFIED SNOMED Code(s): 595687993 (3) UTI (urinary tract infection) Current Visit: Yes Status: Acute Code(s): N39.0 - URINARY TRACT INFECTION, SITE NOT SPECIFIED SNOMED Code(s): 10623977 Plan: 1patient presented to hospital with a fall in this patient who did have a right hip fracture patient also have low-grade fever and elevated white count questionably reactive to the fall/trauma or possible component of UTI as it is very hard to get any history as far as urinary symptoms are concerned from this patient and you do not have any other obvious focus of infection clinically not behaving as pneumonia she did have elevated liver enzymes with the patient is status post cholecystectomy and no tenderness right upper quadrant was noticed 2-patient did have improvement in her fever pattern unfortunately no cultures were done of the UA continue with Rocephin Dictation was produced using [employer] dictation software. please excuse any grammatical, word or spelling errors. Time with Patient: Less than 30
--- NOTE | 2024-08-28 13:32 | P.PN ---
Subjective Progress Note Date: 08/28/24 Principal diagnosis: Reason for follow-up is fever question of reactive versus UTI Patient is a 73-year-old female with a past medical history significant for reflux hyperlipidemia osteoarthritis history of recurrent UTI ,patient has been brought to the hospital after the patient did have a fall and has been diagnosed with the right hip fracture he did have a fever probably this consultation. Patient is status post intramedullary fixation of the right hip fracture completed on 08/26/2024 On today's evaluation that is 08/28/2024, the patient did have improvement in her fever pattern and is afebrile this afternoon, the patient is on room air and breathing comfortably, the Pt denies having any chest pain or cough, the patient denies having any abdominal pain no vomiting or any diarrhea has been reported by the nursing staff pain to the right hip described as 7 out of 10. Patient white count is 5.7, creatinine 0.52 Objective - Vital Signs Vital signs: Vital Signs Temp 98.4 F 08/28/24 11:24 Pulse 75 08/28/24 11:24 Resp 16 08/28/24 11:24 BP 100/58 08/28/24 11:24 Pulse Ox 93 L 08/28/24 11:24 FiO2 98 08/26/24 19:30 Intake & Output 08/27/24 08/28/24 08/28/24 18:59 06:59 18:59 Intake Total 242 10 Output Total 650 450 200 Balance -408 -450 -190 Weight 56 kg Intake: IV 20 10 Invasive Line 1 10 10 Invasive Line 2 10 Oral 222 Output: Urine 650 450 200 Other: Voiding Method Indwelling Catheter Indwelling Catheter Indwelling Catheter # Bowel Movements 0 - Exam GENERAL DESCRIPTION: An elderly female lying in bed in no distress RESPIRATORY SYSTEM: Unlabored breathing , decreased breath sounds at bases HEART: S1 S2 regular rate and rhythm , ABDOMEN: Soft , no tenderness EXTREMITIES: No edema feet - Labs CBC & Chem 7: 08/28/24 07:18 08/28/24 07:18 Labs: Abnormal Lab Results - Last 24 Hours (Table) 08/28/24 08/28/24 Range/Units 07:18 07:18 RBC 2.65 L (3.80-5.40) m/uL Hgb 8.7 L (11.4-16.0) gm/dL Hct 25.5 L (34.0-46.0) % Plt Count 148 L (150-450) k/uL Chloride 109 H (98-107) mmol/L Calcium 7.4 L (8.4-10.2) mg/dL Assessment and Plan (1) Fever Current Visit: Yes Status: Acute Code(s): R50.9 - FEVER, UNSPECIFIED SNOMED Code(s): 281854784 (2) Leukocytosis Current Visit: Yes Status: Acute Code(s): D72.829 - ELEVATED WHITE BLOOD CELL COUNT, UNSPECIFIED SNOMED Code(s): 622189869 (3) UTI (urinary tract infection) Current Visit: Yes Status: Acute Code(s): N39.0 - URINARY TRACT INFECTION, SITE NOT SPECIFIED SNOMED Code(s): 98981127 Plan: 1patient presented to hospital with a fall in this patient who did have a right hip fracture patient also have low-grade fever and elevated white count questionably reactive to the fall/trauma or possible component of UTI as it is very hard to get any history as far as urinary symptoms are concerned from this patient and you do not have any other obvious focus of infection clinically not behaving as pneumonia she did have elevated liver enzymes with the patient is status post cholecystectomy and no tenderness right upper quadrant was noticed 2-patient did have improvement in her fever pattern on Rocephin to continue and consider short course of oral Ceftin on discharge Dictation was produced using [employer] software. please excuse any grammatical, word or spelling errors.
--- NOTE | 2024-08-28 14:55 | P.PN ---
Subjective Progress Note Date: 08/28/24 Patient was seen for a follow-up. Patient had undergone intramedullary fixation of the right hip on 08/26/2024. Patient is laying in the bed. She has a very flat affect. Her swelling of the facial region is improving. No resting tremors noted. Patient does have a history of depression for which she has been on Abilify. Objective - Vital Signs Vital signs: Vital Signs Temp 98.4 F 08/28/24 11:24 Pulse 75 08/28/24 11:24 Resp 16 08/28/24 11:24 BP 100/58 08/28/24 11:24 Pulse Ox 93 L 08/28/24 11:24 FiO2 98 08/26/24 19:30 Intake & Output 08/27/24 08/28/24 08/28/24 18:59 06:59 18:59 Intake Total 242 10 Output Total 650 450 200 Balance -408 -450 -190 Weight 56 kg Intake: IV 20 10 Invasive Line 1 10 10 Invasive Line 2 10 Oral 222 Output: Urine 650 450 200 Other: Voiding Method Indwelling Catheter Indwelling Catheter Indwelling Catheter # Bowel Movements 0 - Exam Patient is alert and awake. She has a flat affect. Speech and language functions are normal. Examination unchanged. Tone is increased mildly. Some cogwheeling. No tremors at rest. Patient does appear slightly bradykinetic. 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 Patient states she has been taking Zyprexa for almost a year, and since then she has been having frequent falls. * Recurrent falls, now with displaced proximal right femoral fracture. * Facial trauma, likely due to above. * Depression * Elevated LFTs, possible due to simvastatin. Plan: * Patient has drug-induced parkinsonism. Zyprexa has been stopped. On the last admission in November 2023, same was recommended, and Cogentin was added to the regimen, but apparently patient is not taking Cogentin at this time. * Continue aspirin 81 mg and Lipitor 10 mg. * Orthopedic on board, and patient probably will undergo surgery for right femoral fracture in the morning. * Patient already has appropriate workup performed on the last visit as described below: * B12 717, folate 13.8, TSH 1.40, recheck CPK ammonia 16, RPR nonreactive. * MRI brain revealed scattered deep white matter changes, which are nonspecific. Differential diagnosis could include microvascular ischemic change, vasculitis, multiple sclerosis, Lyme disease, migraine headaches. Prominent pituitary. Dedicated contrast pituitary MRI is recommended for additional evaluation. Microadenoma may be present. This may be followed up as an outpatient. * 2-D echo revealed normal left ventricular systolic function, with EF 55-60%. No regional wall motion abnormalities. Moderately increased left atrial volume. No significant valvular abnormalities. * Carotid Doppler revealed no flow limiting stenosis of bilateral carotids. Antegrade flow in both vertebral arteries. * Neurologically, no other workup indicated. Please reconsult neurology if any concerns. Dr. Stalin Ortega starting neurology service from the morning.
[2024-08-29 08:04] VITALS: TEMP 99.3
[2024-08-29 13:02] VITALS: BP 100/56; PULSE 85; RESP 18
--- NOTE | 2024-08-29 14:49 | P.DS ---
Providers Date of admission: 08/25/24 04:23 Attending physician: Fitz Ledesma Consults: 08/25/24 08:47 Consult Physician Routine Consulting Provider: Stalin Ortega Consult Reason/Comments: Altered MS and ?? Parkinson Do you want consulting provider notified?: Yes 08/25/24 12:10 Consult Physician Routine Consulting Provider: You Bains Consult Reason/Comments: R hip fx Do you want consulting provider notified?: Already Contacted 08/26/24 12:59 Consult Physician Urgent Consulting Provider: Fawad Kelly Consult Reason/Comments: fevers, fall, uti? right hip fx Do you want consulting provider notified?: Yes Primary care physician: [facility] Course: HISTORY OF PRESENT ILLNESS: 73-year-old office patient with active medical history of CVA/TIA, recurrent urinary tract infection, multiple falls with recurrent rhabdomyolysis, hyperlipidemia, Severe osteoarthritis, severe hiatal hernia, recurrent chronic abdominal pain with IBS and chronic diarrhea with negative study since 2019, multiple episode of syncope with previous history of heart cath and loop recorder monitor, chronic depression which patient seen counselor on more regular basis and has been doing slightly better with medication. Significant weight loss last few years with negative study for CA. She apparently sustained a fall and had according to her she was walking in her then in the house when she felt very weak and fell into the floor striking her head sustaining a slight laceration above her eye on the right side and the lip area. With no other injury she was extremely weak bleeding she called 911 EMS To the scene was transferred to the emergency department at [facility] where was seen and evaluated CAT scan of the brain and the face shows mild scalp edema suggested mild right facial and periorbital edema with no evidence of facial fracture moderate multilevel degenerative disc disease with no fracture was found. She had her laceration in the right periorbit blue at the time patient continue to have severe weakness not been able to ambulate or walk start hydration she has mildly elevated white blood cell at 11,200 with left shift. Is very positive for UTI surprisingly had significantly abnormal liver function test with AST of 303 ALT of 41 with bilirubin at 1.5 blood sugar is borderline normal kidney function at the time mild anemia. Will order an ultrasound of the abdomen if needed a CAT scan patient will be hospitalized continue hydration watch symptoms carefully start patient on 1 g of Rocephin for UTI. Also patient is complaining of increased right hip pain and leg pain x-ray of both hip and the femur will be done to make sure is no fracture. 08/29/2024: Patient had right intramedullary fixation for hip fracture related to trauma with multiple fall has been doing well titrate physical therapy, she was seen neurology and apparently recommend to stop Zyprexa as possible drug- induced parkinsonism medication be off the patient probably will be require more help for PT OT and one of the short-term rehab. She had 3 packed red cell transfusion for anemia most likely acute blood loss type has done very well Hemoglobin is up to 8.7 electrolyte panel and kidney function is much better so far significant improvement on the liver enzyme on the weekend liver ultrasound was negative for any abnormality with her close head trauma no sign of intr acranial hemorrhage. Mobility is increased gradually with physical therapy and patient is doing slightly better, pain is under control currently on light use of Ultram along with Tylenol. Was taking off Zyprexa does not have much effect on her parkinsonism yet. Apparently stable enough to be discharged to [facility] for short-term rehab. REVIEW OF SYSTEMS: CONSTITUTIONAL: Well-developed no acute respiratory distress. EYES: No icterus sclerae, no conjunctivitis. Slight right periorbital bruise. EARS, NOSE, MOUTH, THROAT, and FACE: No sore throat, lymphadenopathy, carotid bruits or deformity. RESPIRATORY: No SOB cough or wheezes. CARDIOVASCULAR: No CP, Palpitation, PND, Orthopnea, or angina. GASTROINTESTINAL: Abdominal discomfort with change in bowel habit mild nausea no vomiting slight diarrhea. GENITOURINARY: Slight incontinence with burning discomfort with more frequency. INTEGUMENT/BREAST: Generalized arthralgia and myalgia. HEMATOLOGIC/LYMPHATIC: Negative for bleed or purpura. MUSCULOSKELTAL: Generalized weakness all over with significant cervical spine and lumbar spine discomfort. NEURLOGICAL: No LOC, Sz or syncope, blurred vision dizziness or abnormality.. BEHAVIORAL/PSYCH: Negative. ENDOCRINE: Negative. PHYSICAL EXAMINATION: General Appearance: Alert, cooperative, no distress, appears stated age. Slightly bit anxious. Neck HEENT: Supple, no lymphadenopathy, no thyroid enlargement, no carotid bruits. Significant bruise over the right periorbital area with laceration looks glued still have slight hematoma and bruise around it. Lungs: Clear to auscultation without crackles or wheezes no rhonchi, no deformity. Chest Wall: Chest wall normal expansion with deep inspiration no tenderness and no deformity was found on exam, no costochondral pain or discomfort. Heart: Regular rate and rhythm, S1, S2 normal, no murmur, rub or gallop. Back: Symmetric, no curvature, ROM normal, no CVA tenderness. Abdomen: Soft, non-tender, bowel sounds active slight discomfort in the right upper quadrant area and mid abdominal area no rebound or rigidity. Extremities: Extremities normal, atraumatic, no cyanosis or edema. Slight bruise over the knee but full range of motion. Pulses: 2+ and symmetric. Skin: Skin color, texture, tugor normal, no rashes or lesions. Neurologic: Alert oriented x3 cranial nerves II through XII intact, no motor deficit, no abnormal balance or gait. ASSESSMENT AND PLAN: _Right hip fracture post intramedullary fixation, titrate weightbearing on the hip will continue physical therapy. _Acute blood loss anemia: Posttransfusion hemoglobin is up to 8.7 doing well so far and stable no sign of active GI bleed. _Multiple fall with closed head trauma: CT of the brain does not show any bleed, patient was hospitalized after laceration was treated will continue neuroexam for the next 24 hours every 4 hours continue to watch for any altered mental status or any change. _Altered mental status: Secondary to UTI and probably for close head trauma again continue to watch symptoms carefully. _? Of parkinsonism: Neurology believe this is side effect of Zyprexa has been off medication that was medication induced parkinsonism. _UTI with no sign of sepsis at this point, patient will be on Rocephin 1 g daily waiting for the final culture. _Abnormal liver function test so far is much better so far no sign of obstruction stone and patient is not an alcoholic. _Severe depression: Has been seen psych still on Paxil along with olanzapine along with Cogentin resume medication. _Hyperlipidemia: Continue patient on Zocor 20 mg daily. _Chronic IBS with recurrent abdominal pain has seen gastroenterology on regular basis multiple scope in the past and CAT scan still on MiraLAX apparently and OTC IBS medication. _Chronic edema: Still on furosemide 20 mg a day. Discussion: Patient had her intramedullary fixation for hip fracture doing slightly better more stable medically try to work with PT OT oncology social worker for potential transfer to SNF when patient is ready. Hospital course: Patient presented to the emergency department after she sustained a fall on 08/24/2024 she presented to the emergency department at [facility] had close head trauma with slight injury to the right forehead and the left area and that having glue done for it CAT scan of the brain did not show any intracranial hemorrhage or abnormality. Patient felt extremely weak tired not been able to walk or ambulate safe on her own despite using a walker had multiple fall at home happened prior to this incident. She ended up calling 911 brought her to the emergency department where again was scanned found to have slight edema in the periorbital area after laceration repair review her testing showed slight abnormal liver function test with no sign of alcoholism or gallstone. Mild dehydration with slight acute kidney injury also found to have acute onset of UTI without sepsis was giving 1 g of Rocephin. Furthermore investigating the trauma she had a quite bit of pain and discomfort in the right hip and knee area x-ray was done and showed intramedullary fracture. Consult Ortho admit patient to the hospital at this point we will see neurology, initiate Rocephin and continue 1 g daily for the time she was in the hospital. Ended up going to the OR and had intramedullary fixation of the right hip successfully by Ortho allowing her to put pressure and weight on the hip area. Patient started PT OT able to put pressure with difficulty with balance and gait at this point. Continue current management. Seen neurology for suspicion of parkinsonism apparently despite her parkinsonism brought by [facility] as medication driven parkinsonism by taking her off medication should improve in the meanwhile did not require any anti-Parkinson's medication. Pain was well-controlled at this time infection was stable patient is ambulating with sales assistant entertainment and media able to eat and drink her liver enzyme settled down and came back to be close to normal. Patient has mild anemia since hospitalization does not require any transfusion she will require little bit more sales assistant entertainment and media oncology social worker arrange for patient to be transferred to [facility] for rehab. Patient is stable to be discharged today 08/29/2024. Time spent on patient discharge was over 35 minutes. Patient Condition at Discharge: Stable Plan - Discharge Summary Discharge Rx Participant: No New Discharge Prescriptions: New Aspirin 81 mg PO BID #60 tab clonazePAM [KlonoPIN] 0.5 mg PO TID #7 tab traMADol HCl [Ultram] 50 mg PO Q6H PRN #28 tab PRN Reason: Pain Cefuroxime [Ceftin] 250 mg PO BID 5 Days #10 tab Acetaminophen Tab [Tylenol] 650 mg PO Q6HR PRN tab PRN Reason: Mild Pain Or Fever > 100.5 Continue Simvastatin [Zocor] 20 mg PO HS PARoxetine HCL [Paxil] 30 mg PO HS Furosemide [Lasix] 20 mg PO DAILY #30 tab clonazePAM 0.5 mg PO TID #21 tab Discontinued OLANZapine [ZyPREXA] 10 mg PO HS Discharge Medication List Simvastatin [Zocor] 20 mg PO HS 05/26/18 [History] PARoxetine HCL [Paxil] 30 mg PO HS 11/15/23 [History] Furosemide [Lasix] 20 mg PO DAILY #30 tab 11/19/23 [Rx] Aspirin 81 mg PO BID #60 tab 08/28/24 [Rx] traMADol HCl [Ultram] 50 mg PO Q6H PRN #28 tab 08/28/24 [Rx] Acetaminophen Tab [Tylenol] 650 mg PO Q6HR PRN tab 08/29/24 [Rx] Cefuroxime [Ceftin] 250 mg PO BID 5 Days #10 tab 08/29/24 [Rx] clonazePAM 0.5 mg PO TID #21 tab 08/29/24 [Rx] clonazePAM [KlonoPIN] 0.5 mg PO TID #7 tab 08/29/24 [Rx] Follow up Appointment(s)/Referral(s): Wilmar Smith MD [STAFF PHYSICIAN] - 2 Weeks Fitz Ledesma MD [Primary Care Provider] - 1-2 days Discharge Disposition: TRANSFER TO SNF/ECF
--- NOTE | 2024-08-30 15:32 | P.PN ---
Subjective Progress Note Date: 08/29/24 Principal diagnosis: Reason for follow-up is fever question of reactive versus UTI Patient is a 73-year-old female with a past medical history significant for reflux hyperlipidemia osteoarthritis history of recurrent UTI ,patient has been brought to the hospital after the patient did have a fall and has been diagnosed with the right hip fracture he did have a fever probably this consultation. Patient is status post intramedullary fixation of the right hip fracture completed on 08/26/2024 On today's evaluation that is 08/29/2024, Patient is afebrile patient is cu rrently on room air and denies having any shortness of breath, the patient denies any chest pain or cough, the patient denies any nausea vomiting did not have any abdominal pain and no diarrhea pain to the right is about 7 out of 10 and no other symptoms. No new lab has been obtained today Objective - Vital Signs Vital signs: Vital Signs Temp 99.3 F 08/29/24 13:01 Pulse 85 08/29/24 13:01 Resp 18 08/29/24 13:01 BP 100/56 08/29/24 13:01 Pulse Ox 95 08/29/24 13:01 FiO2 98 08/26/24 19:30 Intake & Output 08/28/24 08/29/24 08/29/24 18:59 06:59 18:59 Intake Total 454 30 120 Output Total 200 675 Balance 254 -645 120 Intake: IV 10 Invasive Line 1 10 Oral 444 30 120 Output: Urine 200 675 Other: Voiding Method Indwelling Catheter Indwelling Catheter Indwelling Catheter - Labs CBC & Chem 7: 08/28/24 07:18 08/28/24 07:18 Assessment and Plan (1) Fever Status: Acute Code(s): R50.9 - FEVER, UNSPECIFIED SNOMED Code(s): 702865698 (2) Leukocytosis Status: Acute Code(s): D72.829 - ELEVATED WHITE BLOOD CELL COUNT, UNSPECIFIED SNOMED Code(s): 143002471 (3) UTI (urinary tract infection) Status: Acute Code(s): N39.0 - URINARY TRACT INFECTION, SITE NOT SPECIFIED SNOMED Code(s): 35957805 Plan: 1patient presented to hospital with a fall in this patient who did have a right hip fracture patient also have low-grade fever and elevated white count questionably reactive to the fall/trauma or possible component of UTI as it is very hard to get any history as far as urinary symptoms are concerned from this patient and you do not have any other obvious focus of infection clinically not behaving as pneumonia she did have elevated liver enzymes with the patient is status post cholecystectomy and no tenderness right upper quadrant was noticed 2-patient did have improvement in her fever pattern, has received few days of Rocephin in the hospital and a short course of oral Ceftin on discharge should be enough Dictation was produced using [employer] dictation software. please excuse any grammatical, word or spelling errors. Time with Patient: Less than 30
== END 2024-08-29 18:23 | DRG 481 ==
LOC: EC 20:17 → 4SSUR 08-25 04:23 → 3SCARD 08-26 20:04 → 5NMEDONC 08-28 23:52
PROVIDERS: ADMIT Internal Medicine Geriatric Medicine; ATTEND Internal Medicine Geriatric Medicine
PROC: 0JQ13ZZ Repair Face Subcutaneous Tissue and Fascia, Percutaneous Approach (ICD-10-PCS; 2024-08-24)
PROC: 30233N1 Transfusion of Nonautologous Red Blood Cells into Peripheral Vein, Percutaneous Approach (ICD-10-PCS; 2024-08-26)
PROC: 0QS636Z Reposition Right Upper Femur with Intramedullary Internal Fixation Device, Percutaneous Approach (ICD-10-PCS; principal; 2024-08-26 15:15)
DX: S72.001A Fracture of unspecified part of neck of right femur, initial encounter for closed fracture (principal); D62 Acute posthemorrhagic anemia; G21.19 Other drug induced secondary parkinsonism; N39.0 Urinary tract infection, site not specified; T43.595A Adverse effect of other antipsychotics and neuroleptics, initial encounter; W19.XXXA Unspecified fall, initial encounter; Z91.81 History of falling; E78.5 Hyperlipidemia, unspecified; E86.0 Dehydration; R79.89 Other specified abnormal findings of blood chemistry; F10.20 Alcohol dependence, uncomplicated; R63.4 Abnormal weight loss; F32.A Depression, unspecified; G20.A1 Parkinson's disease without dyskinesia, without mention of fluctuations; I73.00 Raynaud's syndrome without gangrene; K58.9 Irritable bowel syndrome, unspecified; M85.80 Other specified disorders of bone density and structure, unspecified site; R29.6 Repeated falls; S01.111A Laceration without foreign body of right eyelid and periocular area, initial encounter; D72.829 Elevated white blood cell count, unspecified; M19.90 Unspecified osteoarthritis, unspecified site; Z28.21 Immunization not carried out because of patient refusal; Z96.653 Presence of artificial knee joint, bilateral; Z87.440 Personal history of urinary (tract) infections; Z79.82 Long term (current) use of aspirin; Z79.899 Other long term (current) drug therapy; Z68.24 Body mass index [BMI] 24.0-24.9, adult
CPT/HCPCS: 36415; 36430; 70450; 70486; 71045; 72125; 73502; 76705; 80048; 80053; 81001; 83735; 83880; 84145; 84450; 84460; 85025; 85027; 85610; 86850; 86900; 86901; 86920; 87636; 90471; 90715; 93005; 96361; 96365; 96374; 99285

== ENCOUNTER 2024-10-15 16:52 | Inpatient (IN) | payer MEDICARE, OTHER ==
[2024-10-15] MEDS ORDERED: IPRATROPIUM-ALBUTEROL 3 ML NEB INHALATION STA (16:57)
[2024-10-15] MEDS: SODIUM CHLORIDE 0.9% 1,000 ML IV STA ×2 (17:11→18:30)
--- NOTE | 2024-10-15 17:13 | ED ---
SOB HPI - General Stated Complaint: Covid+,JAROD Time Seen by Provider: 10/15/24 16:54 Source: patient, EMS, RN notes reviewed, old records reviewed Mode of arrival: EMS Limitations: altered mental status, physical limitation - History of Present Illness Initial Comments: This is a 73-year-old female presenting respiratory failure with hypoxia found to be severely hypoxic with recent diagnosis of coronavirus MD Complaint: shortness of breath, cough, chest pain -: unknown Severity: severe Severity scale (1-10): 10 Consistency: constant Improves With: nothing Worsens With: nothing Context: recent URI, recent illness Associated Symptoms: fever, cough Treatments Prior to Arrival: none - Related Data Home Medications Medication Instructions Recorded Confirmed PARoxetine HCL [Paxil] 30 mg PO HS 11/15/23 10/15/24 Atorvastatin [Lipitor] 10 mg PO HS 10/15/24 10/15/24 Calcium Carbonate/Vitamin D3 1 cap PO BID 10/15/24 10/15/24 [Calcium 600Mg-D3 400 Unit Sfgl] Cyanocobalamin [Vitamin B-12] 500 mcg PO DAILY 10/15/24 10/15/24 Ferrous Sulfate [Iron (65 MG 325 mg PO DAILY 10/15/24 10/15/24 Elemental)] Lactose-Reduced Food [Ensure Plus] 1 can PO DAILY 10/15/24 10/15/24 Previous Rx's Medication Instructions Recorded Aspirin 81 mg PO BID #60 tab 08/28/24 Acetaminophen Tab [Tylenol] 650 mg PO Q6HR PRN tab 08/29/24 Albuterol Inhaler [Ventolin Hfa 2 puff INHALATION RT-QID each 10/20/24 Inhaler] Enoxaparin [Lovenox] 40 mg SQ DAILY each 10/20/24 Famotidine [Pepcid] 20 mg PO BID tab 10/20/24 clonazePAM [KlonoPIN] 0.5 mg PO TID@0900,1300,2100 PRN 10/20/24 #6 tab dexAMETHasone [Decadron] 4 mg PO TID #24 tablet 10/20/24 traMADol HCl [Ultram] 50 mg PO Q6H PRN #6 tab 10/20/24 Allergies Allergy/AdvReac Type Severity Reaction Status Date / Time No Known Allergies Allergy Verified 10/15/24 18:52 Review of Systems ROS Statement: Those systems with pertinent positive or pertinent negative responses have been documented in the HPI. ROS Other: All systems not noted in ROS Statement are negative. Past Medical History Past Medical History: GERD/Reflux, Hyperlipidemia, Osteoarthritis (OA) Additional Past Medical History / Comment(s): Raynauds, varicose veins, hx frequent UTI's, osteopenia. Hiatal hernia. 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 FRANKO BSO was done for endometriosis and abnormal bleeding. History of Any Multi-Drug Resistant Organisms: None Reported Past Surgical History: Cholecystectomy, Heart Catheterization, Hysterectomy, Joint Replacement, Orthopedic Surgery, Tonsillectomy Additional Past Surgical History / Comment(s): D&C, Darrell knee replacements, darrell knee arthroscopy, darrell carpal tunnel, rt foot heel spur. FRANKO BSO in 2002. Cardiac loop recorder placed in 2017. Colonoscopy 2019. Past Anesthesia/Blood Transfusion Reactions: Family History of Problems w/ Anesthesia Additional Past Anesthesia/Blood Transfusion Reaction / Comment(s): sister-pt not sure of what problems Past Psychological History: Depression Smoking Status: Never smoker - Past Family History Mother Family Medical History: No Reported History Father Family Medical History: Congestive Heart Failure (CHF), Myocardial Infarction ([place]) General Exam Limitations: altered mental status, physical limitation General appearance: alert, anxious, obtunded Head exam: Present: atraumatic, normocephalic, normal inspection Eye exam: Present: normal appearance, PERRL, EOMI. Absent: scleral icterus, conjunctival injection, periorbital swelling ENT exam: Present: normal exam, mucous membranes moist Neck exam: Present: normal inspection. Absent: tenderness, meningismus, lymphadenopathy Respiratory exam: Present: normal lung sounds bilaterally. Absent: respiratory distress, wheezes, rales, rhonchi, stridor Cardiovascular Exam: Present: regular rate, normal rhythm, normal heart sounds. Absent: systolic murmur, diastolic murmur, rubs, gallop, clicks GI/Abdominal exam: Present: soft, normal bowel sounds. Absent: distended, tenderness, guarding, rebound, rigid Extremities exam: Present: normal inspection, full ROM, normal capillary refill. Absent: tenderness, pedal edema, joint swelling, calf tenderness Back exam: Present: normal inspection Neurological exam: Present: alert, oriented X3, CN II-XII intact Psychiatric exam: Present: normal affect, normal mood Skin exam: Present: warm, dry, intact, normal color. Absent: rash Course Vital Signs 10/15/24 10/15/24 10/15/24 16:56 17:00 17:03 Temperature 99.2 F Pulse Rate 56 L Respiratory 40 H 35 H Rate Blood Pressure 126/77 O2 Sat by Pulse 92 L Oximetry Fraction of 100 Inspired Oxygen (FIO2) 10/15/24 10/15/24 10/15/24 18:02 19:25 20:45 Temperature 97.3 F L 98.2 F Pulse Rate 96 96 Respiratory 30 H 18 Rate Blood Pressure 100/67 123/76 O2 Sat by Pulse 94 L 95 Oximetry Fraction of 90 Inspired Oxygen (FIO2) 10/15/24 10/15/24 10/16/24 21:09 23:37 00:15 Temperature Pulse Rate 91 80 Respiratory 18 18 Rate Blood Pressure 124/78 131/79 O2 Sat by Pulse 96 98 Oximetry Fraction of 80 Inspired Oxygen (FIO2) 10/16/24 10/16/24 10/16/24 00:51 02:08 03:06 Temperature Pulse Rate 77 89 84 Respiratory 16 18 16 Rate Blood Pressure 125/75 138/81 126/73 O2 Sat by Pulse 98 98 97 Oximetry Fraction of Inspired Oxygen (FIO2) 10/16/24 10/16/24 10/16/24 03:29 04:03 06:05 Temperature 99.5 F Pulse Rate 82 81 Respiratory 18 18 Rate Blood Pressure 128/74 118/67 O2 Sat by Pulse 96 95 96 Oximetry Fraction of 80 Inspired Oxygen (FIO2) 10/16/24 10/16/24 10/16/24 06:57 07:48 08:00 Temperature 98.8 F Pulse Rate 74 Respiratory 24 Rate Blood Pressure 120/61 O2 Sat by Pulse 97 Oximetry Fraction of 65 Inspired Oxygen (FIO2) 10/16/24 10/16/24 10/16/24 11:07 11:32 14:00 Temperature Pulse Rate 71 81 Respiratory 20 20 Rate Blood Pressure 115/75 136/93 O2 Sat by Pulse 99 99 Oximetry Fraction of 60 Inspired Oxygen (FIO2) 10/16/24 10/16/24 10/16/24 15:17 15:20 17:00 Temperature Pulse Rate 78 81 Respiratory 22 20 Rate Blood Pressure 112/66 106/59 O2 Sat by Pulse 99 98 Oximetry Fraction of 55 Inspired Oxygen (FIO2) 10/16/24 10/16/24 19:37 19:52 Temperature Pulse Rate 82 Respiratory 20 Rate Blood Pressure 123/68 O2 Sat by Pulse 100 Oximetry Fraction of 55 Inspired Oxygen (FIO2) - Reevaluation(s) Reevaluation #1: 10/15/24 17:12 Medical records reviewed Reevaluation #2: 10/15/24 18:50 Patient symptoms improved with supplemental O2 Reevaluation #3: 10/15/24 18:50 Patient informed of results and questions answered Reevaluation #4: Was pt. sent in by a medical professional or institution (, HARJINDER, ORTHOPEDIC PHYSICAL THERAPIST, urgent care, hospital, or skilled nursing...) When possible be specific @ -no Did you speak to anyone other than the patient for history (EMS, parent, family, police, friend...)? What history was obtained from this source @ -no Did you review nursing and triage notes (agree or disagree)? Why? @ -agree Are old charts reviewed (outside hosp., previous admission, EMS record, old EKG, old radiological studies, urgent care reports/EKG's, skilled nursing records)? Report findings @ -yes Differential Diagnosis (chest pain, altered mental status, abdominal pain women, abdominal pain men, vaginal bleeding, weakness, fever, dyspnea, syncope, headache, dizziness, GI bleed, back pain, seizure, CVA, palpatations, mental health, musculoskeletal)? @ -prior EKG interpreted by me (3pts min.). @ -yes X-rays interpreted by me (1pt min.). @ -yes focal pneumonia CT interpreted by me (1pt min.). @ -no U/S interpreted by me (1pt. min.). @ -no What testing was considered but not performed or refused? (CT, X-rays, U/S, labs)? Why? @ -none What meds were considered but not given or refused? Why? @ -none Did you discuss the management of the patient with other professionals (professionals i.e. HARJINDER Dave, ORTHOPEDIC PHYSICAL THERAPIST, lab, RT, psych nurse, social service technician, dormitory counselor, teacher, chief informatics officer, gearcase assembler)? Give summary @ -no Was smoking cessation discussed for >3mins.? @ -no Was critical care preformed (if so, how long)? @ -yes31 Were there social determinants of health that impacted care today? How? (Homelessness, low income, unemployed, alcoholism, drug addiction, transportation, low edu. Level, literacy, decrease access to med. care, longterm, rehab)? @ -none Was there de-escalation of care discussed even if they declined (Discuss DNR or withdrawal of care, Hospice)? DNR status @ -no What co-morbidities impacted this encounter? (DM, HTN, Smoking, COPD, CAD, Cancer, CVA, ARF, Chemo, Hep., AIDS, mental health diagnosis, sleep apnea, morbid obesity)? @ -none Was patient admitted / discharged? Hospital course, mention meds given and route, prescriptions, significant lab abnormalities, going to OR and other pe rtinent info. @ - 73 female with hypoxic respiratory failure. Patient will be admitted for coronavirus multifocal pneumonia Admitted Undiagnosed new problem with uncertain prognosis? @ -no Drug Therapy requiring intensive monitoring for toxicity (Heparin, Nitro, Insulin, Cardizem)? @ -no Were any procedures done? @ -no Diagnosis/symptom? @ -Hypoxia coronavirus multifocal pneumonia Acute, or Chronic, or Acute on Chronic? @ -Acute Uncomplicated (without systemic symptoms) or Complicated (systemic symptoms)? @ -Complicated Side effects of treatment? @ -no Exacerbation, Progression, or Severe Exacerbation? @ -exacerbation Poses a threat to life or bodily function? How? (Chest pain, USA, MD, pneumonia, PE, COPD, DKA, ARF, appy, cholecystitis, CVA, Diverticulitis, Homicidal, Suicidal, threat to staff... and all critical care pts) @ -yes coronavirus and hypoxia Reevaluation #5: Differential Dyspnea: Coronary syndrome, arrhythmia, tamponade, asthma, COPD, pulmonary embolism, pneumonia, pneumothorax, pulmonary effusion, anaphylaxis, diabetic ketoacidosis, flailed chest, pulmonary contusion, diaphragmatic rupture, anemia, neuromuscular, this is not meant to be an all-inclusive list. - Consultations Consultation #1: Spoke with [facility] who agrees to admit this patient Medical Decision Making - Medical Decision Making 73 female with hypoxic respiratory failure. Patient will be admitted for coronavirus multifocal pneumonia - Lab Data Result diagrams: 10/19/24 07:05 10/19/24 07:05 Lab Results 10/15/24 10/15/24 10/15/24 Range/Units 17:05 17:05 17:05 WBC 8.5 (3.8-10.6) k/uL RBC 4.46 (3.80-5.40) m/uL Hgb 13.6 D (11.4-16.0) gm/dL Hct 43.8 (34.0-46.0) % MCV 98.1 (80.0-100.0) fL MCH 30.4 (25.0-35.0) pg MCHC 31.0 (31.0-37.0) g/dL RDW 13.8 (11.5-15.5) % Plt Count 276 (150-450) k/uL MPV 7.4 Neutrophils % 84 % Lymphocytes % 11 % Monocytes % 3 % Eosinophils % 1 % Basophils % 0 % Neutrophils # 7.1 (1.3-7.7) k/uL Lymphocytes # 0.9 L (1.0-4.8) k/uL Monocytes # 0.3 (0-1.0) k/uL Eosinophils # 0.1 (0-0.7) k/uL Basophils # 0.0 (0-0.2) k/uL Hypochromasia Moderate PT 11.2 (10.0-12.5) sec INR 1.0 (<1.2) APTT 22.3 (22.0-30.0) sec D-Dimer 5.88 H (<0.60) mg/L FEU Sodium 138 (137-145) mmol/L Potassium 4.2 (3.5-5.1) mmol/L Chloride 104 (98-107) mmol/L Carbon Dioxide 26 (22-30) mmol/L Anion Gap 8 mmol/L BUN 27 H (7-17) mg/dL Creatinine 0.74 (0.52-1.04) mg/dL Est GFR (CKD-EPI)AfAm >90 (>60 ml/min/1.73 sqM) Est GFR (CKD-EPI)NonAf 81 (>60 ml/min/1.73 sqM) Glucose 247 H (74-99) mg/dL Lactic Ac Sepsis Rflx Plasma Lactic Acid Silvino (0.7-2.0) mmol/L Calcium 9.2 (8.4-10.2) mg/dL Magnesium 1.8 (1.6-2.3) mg/dL Total Bilirubin 0.4 (0.2-1.3) mg/dL AST 32 (14-36) U/L ALT 26 (4-34) U/L Alkaline Phosphatase 128 H (38-126) U/L Troponin I (0.000-0.034) ng/mL NT-Pro-B Natriuret Pep 133 pg/mL Total Protein 6.7 (6.3-8.2) g/dL Albumin 3.8 (3.5-5.0) g/dL 10/15/24 10/15/24 10/15/24 Range/Units 17:05 17:05 17:52 WBC (3.8-10.6) k/uL RBC (3.80-5.40) m/uL Hgb (11.4-16.0) gm/dL Hct (34.0-46.0) % MCV (80.0-100.0) fL MCH (25.0-35.0) pg MCHC (31.0-37.0) g/dL RDW (11.5-15.5) % Plt Count (150-450) k/uL MPV Neutrophils % % Lymphocytes % % Monocytes % % Eosinophils % % Basophils % % Neutrophils # (1.3-7.7) k/uL Lymphocytes # (1.0-4.8) k/uL Monocytes # (0-1.0) k/uL Eosinophils # (0-0.7) k/uL Basophils # (0-0.2) k/uL Hypochromasia PT (10.0-12.5) sec INR (<1.2) APTT (22.0-30.0) sec D-Dimer (<0.60) mg/L FEU Sodium (137-145) mmol/L Potassium (3.5-5.1) mmol/L Chloride (98-107) mmol/L Carbon Dioxide (22-30) mmol/L Anion Gap mmol/L BUN (7-17) mg/dL Creatinine (0.52-1.04) mg/dL Est GFR (CKD-EPI)AfAm (>60 ml/min/1.73 sqM) Est GFR (CKD-EPI)NonAf (>60 ml/min/1.73 sqM) Glucose (74-99) mg/dL Lactic Ac Sepsis Rflx Y Plasma Lactic Acid Silvino 2.4 H* (0.7-2.0) mmol/L Calcium (8.4-10.2) mg/dL Magnesium (1.6-2.3) mg/dL Total Bilirubin (0.2-1.3) mg/dL AST (14-36) U/L ALT (4-34) U/L Alkaline Phosphatase (38-126) U/L Troponin I <0.012 (0.000-0.034) ng/mL NT-Pro-B Natriuret Pep pg/mL Total Protein (6.3-8.2) g/dL Albumin (3.5-5.0) g/dL - EKG Data -: EKG Interpreted by Me (EKG is sinus tachycardia 102 [place] 145 QRS 114 QTc 429) - Radiology Data Radiology results: report reviewed (Chest x-ray CTA chest groundglass opacities multifocal pneumonia), image reviewed Critical Care Time Critical Care Time: Yes Total Critical Care Time: 31 Disposition Clinical Impression: Weakness, Hypoxia, Coronavirus infection, Fever, Leukocytosis, Multifocal pneumonia Disposition: ADMITTED IP TO THIS HOSP Condition: Fair Is patient prescribed a controlled substance at d/c from ED?: No Time of Disposition: 19:00
[2024-10-15] MEDS: KETOROLAC 15 MG/ML 1 ML VIAL IVP STA (17:14)
[2024-10-15] MEDS: DEXAMETHASONE SOD PHOSPHATE 10 MG/ML 1 ML VIAL IVP STA (17:15)
[2024-10-15] MEDS: ALBUTEROL HFA INHALER INHALATION STA (17:17)
[2024-10-15 17:22] LABS: Basophils % (A) 0 %; Eosinophils # (A) 0.1 k/uL (0-0.7); Eosinophils % (A) 1 %; HCT 43.8 % (34.0-46.0); Hypochromasia Moderate; Lymphocytes # (A) 0.9 k/uL (1.0-4.8); Lymphocytes % (A) 11 %; MCH 30.4 pg (25.0-35.0); MCV 98.1 fL (80.0-100.0); Mean Platelet Volume 7.4; Monocytes # (A) 0.3 k/uL (0-1.0); Monocytes % (A) 3 %; Neutrophils # (A) 7.1 k/uL (1.3-7.7); Neutrophils % (A) 84 %; Platelet Count 276 k/uL (150-450); RBC 4.46 m/uL (3.80-5.40); RDW 13.8 % (11.5-15.5); WBC 8.5 k/uL (3.8-10.6)
--- NOTE | 2024-10-15 17:28 | XR ---
EXAMINATION TYPE: XR chest 1V portable DATE OF EXAM: 10/15/2024 5:18 PM COMPARISON: Previous chest radiograph 08/26/2024. CLINICAL INDICATION: Female, 73 years old with history of sob; [facility] TECHNIQUE: XR chest 1V portable Frontal view of the chest. FINDINGS: Study limited due to patient positioning. Lungs/Pleura: There is no evidence of pleural effusion, focal consolidation, or pneumothorax. Pulmonary vascularity: Unremarkable. Heart/mediastinum: Cardiomediastinal silhouette is unremarkable. Musculoskeletal: No acute osseous pathology. Other findings: None IMPRESSION: No acute cardiopulmonary disease/process. [facility], , 10/15/2024 5:26 PM
[2024-10-15 17:37] LABS: ALT 26 U/L (4-34); AST 32 U/L (14-36); African American GFR (CKD) >90 (>60 ml/min/1.73 sqM); Albumin 3.8 g/dL (3.5-5.0); Alkaline Phosphatase 128 U/L (38-126); Anion Gap 8 mmol/L; Blood Urea Nitrogen 27 mg/dL (7-17); Calcium 9.2 mg/dL (8.4-10.2); Carbon Dioxide 26 mmol/L (22-30); Chloride 104 mmol/L (98-107); Glucose 247 mg/dL (74-99); HGB 13.6 gm/dL (11.4-16.0); Magnesium 1.8 mg/dL (1.6-2.3); Non-African American GFR(CKD) 81 (>60 ml/min/1.73 sqM); Potassium 4.2 mmol/L (3.5-5.1); Sodium 138 mmol/L (137-145); Total Bilirubin 0.4 mg/dL (0.2-1.3); Total Protein 6.7 g/dL (6.3-8.2)
[2024-10-15 17:44] LABS: Partial Thromboplastin Time 22.3 sec (22.0-30.0); Prothrombin Time 11.2 sec (10.0-12.5)
[2024-10-15 17:45] LABS: NT-Pro-B-Type Natriuretic Pept 133 pg/mL
[2024-10-15] MEDS: SODIUM CHLORIDE 0.9% 500 ML 500 ML IV STA (18:30)
--- NOTE | 2024-10-15 18:46 | CT ---
EXAMINATION TYPE: CT angio chest DATE OF EXAM: 10/15/2024 6:32 PM COMPARISON: Previous chest radiograph dated 10/15/2024. CLINICAL INDICATION: Female, 73 years old with history of PE; JAROD, R/O PE. TECHNIQUE/CONTRAST: CTA scan of the thorax is performed with IV Contrast, patient injected with 100 ml mL of Isovue 370, MIP images are created and reviewed these are created on a separate workstation.. CT DLP: 319.7 mGycm, Automated exposure control for dose reduction was used. FINDINGS: Pulmonary Artery: There is no evidence for a filling defect within the pulmonary vasculature to sugge st acute pulmonary embolism. The pulmonary artery is of normal size. Lungs/Pleura: Patchy groundglass and consolidative opacities throughout the bilateral lungs with scat tered regions of tree-in-bud nodularity as well. No sizable pleural effusion. No pneumothorax. Airway: Large airways are patent. Heart: Cardiomegaly without significant pericardial effusion. Vasculature: No evidence of aortic aneurysm. Mediastinum: No gross evidence of adenopathy. Musculoskeletal: No acute osseous abnormalities Soft Tissues/lymph nodes: Unremarkable. Lower neck: No significant findings. Upper Abdomen: Fluid distention of the entire visualized esophagus. Moderate-sized hernia with partia l intrathoracic stomach. Previous cholecystectomy. IMPRESSION: 1. No evidence of acute pulmonary embolism. 2. Patchy groundglass and consolidative opacities in the bilateral lungs with tree-in-bud nodularity suggestive of multifocal pneumonia, possibly aspiration related. 3. Fluid distention of the entire visualized esophagus suggestive of reflux. 4. Moderate sized hiatal hernia. [facility], , 10/15/2024 6:44 PM
[2024-10-15] MEDS ORDERED: ONDANSETRON 4 MG/2 ML VIAL IVP PRN (18:48)
[2024-10-15] MEDS ORDERED: MORPHINE SULFATE 4 MG/ML SYRINGE IV PRN (18:48)
[2024-10-15] MEDS ORDERED: NALOXONE 0.4 MG/ML 1 ML VIAL IV PRN (18:48)
[2024-10-15] MEDS: SODIUM CHLORIDE 0.9% 1,000 ML IV SCH (20:19)
[2024-10-15] MEDS: DEXAMETHASONE SOD PHOSPHATE 4 MG/ML 1 ML VIAL IVP SCH (23:57)
[2024-10-16] MEDS ORDERED: ACETAMINOPHEN TAB 325 MG TAB PO PRN (09:14)
[2024-10-16] MEDS: PIPERACILLIN-TAZOBACTAM 3.375 GM in SODIUM CHLORIDE 0.9% 100 ML IVPB SCH (09:16)
--- NOTE | 2024-10-16 09:21 | P.HPIM ---
History of Present Illness Patient is 73-year-old female was transferred from [facility] because of severe hypoxemia patient does not use any oxygen there. Patient is found to have multifocal infiltrates along with air bronchograms and consolidative changes in the right lower lung almodovar on the CAT scan no pulmonary embolism was evident patient's BNP is not elevated patient does not have any history of congestive heart failure. Patient was evaluated by pulmonology. Patient does not have any fever. Patient was started on Decadron and Zosyn. Patient was on 100% nonrebreather presently on high flow oxygen. Patient is alert oriented times almost 3 and the patient does have history of dementia uses donepezil. Patient was apparently positive for COVID-19 not sure when this was obtained. We are obtaining COVID-19 test here REVIEW OF SYSTEMS: All other systems are negative except those mentioned in the HPI PHYSICAL EXAMINATION: GENERAL: The patient is alert and oriented x3, not in any acute distress. Well developed, well nourished. HEENT: Pupils are round and equally reacting to light. EOMI. No scleral icterus. No conjunctival pallor. Normocephalic, atraumatic. No pharyngeal erythema. No thyromegaly. CARDIOVASCULAR: S1 and S2 present. No murmurs, rubs, or gallops. PULMONARY: Chest is clear to auscultation, no wheezing or crackles. ABDOMEN: Soft, nontender, nondistended, normoactive bowel sounds. No palpable organomegaly. MUSCULOSKELETAL: No joint swelling or deformity. EXTREMITIES: No cyanosis, clubbing, or pedal edema. NEUROLOGICAL: Gross neurological examination did not reveal any focal deficits. SKIN: No rashes. Assessment and plan -Acute hypoxic respiratory failure: Secondary to Bactrim pneumonia along with superimposed COVID-19 infection. Patient will be continued on Zosyn will obtain procalcitonin continue Decadron obtain COVID-19 PCR -Possible bacterial pneumonia -Possible COVID-19 infection -Hyperlipidemia -Depression -Gastroesophageal reflux disease -Possible dementia GI prophylaxis Pepcid DVT prophylaxis: Lovenox Past Medical History Past Medical History: GERD/Reflux, Hyperlipidemia, Osteoarthritis (OA) Additional Past Medical History / Comment(s): Raynauds, varicose veins, hx frequent UTI's, osteopenia. Hiatal hernia. 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 FRANKO BSO was done for endometriosis and abnormal bleeding. History of Any Multi-Drug Resistant Organisms: None Reported Past Surgical History: Cholecystectomy, Heart Catheterization, Hysterectomy, Joint Replacement, Orthopedic Surgery, Tonsillectomy Additional Past Surgical History / Comment(s): D&C, Jonel knee replacements, jonel knee arthroscopy, jonel carpal tunnel, rt foot heel spur. FRANKO BSO in 2002. Cardiac loop recorder placed in 2017. Colonoscopy 2019. Past Anesthesia/Blood Transfusion Reactions: Family History of Problems w/ Anesthesia Additional Past Anesthesia/Blood Transfusion Reaction / Comment(s): sister-pt no t sure of what problems Past Psychological History: Depression Smoking Status: Never smoker - Past Family History Mother Family Medical History: No Reported History Father Family Medical History: Congestive Heart Failure (CHF), Myocardial Infarction ([place]) Medications and Allergies Home Medications Medication Instructions Recorded Confirmed Type PARoxetine HCL [Paxil] 30 mg PO HS 11/15/23 10/15/24 History Aspirin 81 mg PO BID #60 tab 08/28/24 10/15/24 Rx traMADol HCl [Ultram] 50 mg PO Q6H PRN #28 tab 08/28/24 10/15/24 Rx Acetaminophen Tab [Tylenol] 650 mg PO Q6HR PRN tab 08/29/24 10/15/24 Rx Atorvastatin [Lipitor] 10 mg PO HS 10/15/24 10/15/24 History Calcium Carbonate/Vitamin D3 1 cap PO BID 10/15/24 10/15/24 History [Calcium 600Mg-D3 400 Unit Sfgl] Cyanocobalamin [Vitamin B-12] 500 mcg PO DAILY 10/15/24 10/15/24 History Ferrous Sulfate [Feosol] 325 mg PO DAILY 10/15/24 10/15/24 History Furosemide [Lasix] 30 mg PO DAILY 10/15/24 10/15/24 History Lactose-Reduced Food [Ensure Plus] 1 can PO DAILY 10/15/24 10/15/24 History clonazePAM [KlonoPIN] 0.5 mg PO TID@0900,1300,2100 10/15/24 10/15/24 History Allergies Allergy/AdvReac Type Severity Reaction Status Date / Time No Known Allergies Allergy Verified 10/15/24 18:52 Physical Exam Vitals: Vital Signs Temp Pulse Resp BP Pulse Ox FiO2 10/16/24 08:00 74 24 120/61 97 10/16/24 07:48 65 10/16/24 06:57 98.8 F 10/16/24 06:05 99.5 F 81 18 118/67 96 10/16/24 04:03 82 18 128/74 95 10/16/24 03:29 96 80 10/16/24 03:06 84 16 126/73 97 10/16/24 02:08 89 18 138/81 98 10/16/24 00:51 77 16 125/75 98 10/16/24 00:15 80 10/15/24 23:37 80 18 131/79 98 10/15/24 21:09 91 18 124/78 96 10/15/24 20:45 90 10/15/24 19:25 98.2 F 96 18 123/76 95 10/15/24 18:02 97.3 F L 96 30 H 100/67 94 L 10/15/24 17:03 100 10/15/24 17:00 35 H 10/15/24 16:56 99.2 F 56 L 40 H 126/77 92 L Intake and Output 10/15/24 10/16/24 10/16/24 22:59 06:59 14:59 Other: Weight 60.01 kg Results CBC & Chem 7: 10/15/24 17:05 10/15/24 17:05 Labs: Abnormal Lab Results - Last 24 Hours (Table) 10/15/24 10/15/24 10/15/24 Range/Units 17:05 17:05 17:05 Lymphocytes # 0.9 L (1.0-4.8) k/uL D-Dimer 5.88 H (<0.60) mg/L FEU BUN 27 H (7-17) mg/dL Glucose 247 H (74-99) mg/dL Plasma Lactic Acid Silvino (0.7-2.0) mmol/L Alkaline Phosphatase 128 H (38-126) U/L 10/15/24 10/15/24 Range/Units 17:05 20:12 Lymphocytes # (1.0-4.8) k/uL D-Dimer (<0.60) mg/L FEU BUN (7-17) mg/dL Glucose (74-99) mg/dL Plasma Lactic Acid Silvino 2.4 H* 2.2 H* (0.7-2.0) mmol/L Alkaline Phosphatase (38-126) U/L
[2024-10-16 09:26] LABS: HCT 38.3 % (37.2-46.3); HGB 12.2 g/dL (12.0-15.0); MCH 30.1 pg (27.0-32.0); MCHC 31.9 g/dL (32.0-37.0); MCV 94.6 FL (80.0-97.0); Mean Platelet Volume 10.2 FL (9.5-12.2); NRBC Per 100 WBC 0 X 10*3/uL (0.00-0.01); Platelet Count 283 X 10*3/uL (140-440); RBC 4.05 X 10*6/uL (4.10-5.20); RDW 13.3 % (11.5-14.5); WBC 22.36 X 10*3/uL (4.50-10.00)
[2024-10-16 10:37] LABS: ALT 22 U/L (8-44); AST 21 U/L (13-35); Albumin 3.6 g/dL (3.8-4.9); Alkaline Phosphatase 132 U/L (41-126); BUN/Creat Ratio 40.17 Ratio (12.00-20.00); Blood Urea Nitrogen 24.1 mg/dL (9.0-27.0); Calcium 8.9 mg/dL (8.7-10.3); Carbon Dioxide 24.4 mmol/L (21.6-31.8); Chloride 104 mmol/L (96-109); Globulin 2.4 g/dL (1.6-3.3); Glucose 145 mg/dL (70-110); Magnesium 1.9 mg/dL (1.5-2.4); Phosphorus 3.5 mg/dL (2.4-5.1); Potassium 4.3 mmol/L (3.5-5.5); Sodium 139 mmol/L (135-145); Total Bilirubin 0.3 mg/dL (0.3-1.2)
[2024-10-16 10:49] LABS: Basophils # (A) 0.03 X 10*3/uL (0.00-0.10); Basophils % (A) 0.1 %; Eosinophils # (A) 0 X 10*3/uL (0.04-0.35); Eosinophils % (A) 0 %; Lymphocytes # (A) 1.06 X 10*3/uL (0.90-5.00); Lymphocytes % (A) 4.7 %; Monocytes # (A) 0.27 X 10*3/uL (0.20-1.00); Monocytes % (A) 1.2 %; Neutrophils # (A) 20.83 X 10*3/uL (1.80-7.70); Neutrophils % (A) 93.2 %
[2024-10-16] MEDS: ENOXAPARIN 40 MG/0.4 ML SYRINGE SQ SCH (11:30)
[2024-10-16] MEDS: FAMOTIDINE 20 MG TAB PO SCH (11:31)
--- NOTE | 2024-10-16 15:03 | P.CNPUL ---
History of Present Illness Consult date: 10/16/24 Requesting physician: Alina Zurita Reason for consult: hypoxemia, abnormal CXR/CT Chief complaint: Hypoxemia History of present illness: This is a 73-year-old female patient who resides in a extended care facility and was brought into the emergency room yesterday after being found to be severely hypoxic and had recently been diagnosed with COVID infection. She has a history of hyperlipidemia, depression, osteoarthritis, non-smoker. She is seen in consultation in the emergency department. Poor historian. Difficult to get much information from the patient. She answers most questions with "I don't know". Chest x-ray reveals no acute pulmonary process. CT angiogram ruled out pulmonary embolism. There is patchy groundglass and consolidative opacities in the bilateral lungs with tree-in-bud nodularity suggestive of multifocal pneumonia. Fluid distention of the entire visualized esophagus suggestive of reflux. Moderate size hiatal hernia. White count 22.3. Hemoglobin 12.2. Platelets 283. Sodium 139. Potassium 4.3. Bicarb 24. BUN 24. Creatinine 0.6. Glucose 145. Influenza screen negative. RSV screen negative. COVID-19 screen positive. She is requiring Airvo high flow oxygen at 50 L and 65% FiO2 to maintain O2 saturations in the low 90s. Review of Systems ROS unobtainable: due to mental status Past Medical History Past Medical History: GERD/Reflux, Hyperlipidemia, Osteoarthritis (OA) Additional Past Medical History / Comment(s): Raynauds, varicose veins, hx frequent UTI's, osteopenia. Hiatal hernia. 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 [facility] BSO was done for endometriosis and abnormal bleeding. History of Any Multi-Drug Resistant Organisms: None Reported Past Surgical History: Cholecystectomy, Heart Catheterization, Hysterectomy, Joint Replacement, Orthopedic Surgery, Tonsillectomy Additional Past Surgical History / Comment(s): D&C, Darrell knee replacements, darrell knee arthroscopy, darrell carpal tunnel, rt foot heel spur. FRANKO BSO in 2002. Cardiac loop recorder placed in 2017. Colonoscopy 2019. Past Anesthesia/Blood Transfusion Reactions: Family History of Problems w/ Anesthesia Additional Past Anesthesia/Blood Transfusion Reaction / Comment(s): sister-pt not sure of what problems Past Psychological History: Depression Smoking Status: Never smoker - Past Family History Mother Family Medical History: No Reported History Father Family Medical History: Congestive Heart Failure (CHF), Myocardial Infarction (TX) Medications and Allergies Home Medications Medication Instructions Recorded Confirmed Type PARoxetine HCL [Paxil] 30 mg PO HS 11/15/23 10/15/24 History Aspirin 81 mg PO BID #60 tab 08/28/24 10/15/24 Rx traMADol HCl [Ultram] 50 mg PO Q6H PRN #28 tab 08/28/24 10/15/24 Rx Acetaminophen Tab [Tylenol] 650 mg PO Q6HR PRN tab 08/29/24 10/15/24 Rx Atorvastatin [Lipitor] 10 mg PO HS 10/15/24 10/15/24 History Calcium Carbonate/Vitamin D3 1 cap PO BID 10/15/24 10/15/24 History [Calcium 600Mg-D3 400 Unit Sfgl] Cyanocobalamin [Vitamin B-12] 500 mcg PO DAILY 10/15/24 10/15/24 History Ferrous Sulfate [Feosol] 325 mg PO DAILY 10/15/24 10/15/24 History Furosemide [Lasix] 30 mg PO DAILY 10/15/24 10/15/24 History Lactose-Reduced Food [Ensure Plus] 1 can PO DAILY 10/15/24 10/15/24 History clonazePAM [KlonoPIN] 0.5 mg PO TID@0900,1300,2100 10/15/24 10/15/24 History Allergies Allergy/AdvReac Type Severity Reaction Status Date / Time No Known Allergies Allergy Verified 10/15/24 18:52 Physical Exam Vitals: Vital Signs Temp Pulse Resp BP Pulse Ox FiO2 10/16/24 14:00 81 20 136/93 99 10/16/24 11:32 71 20 115/75 99 10/16/24 11:07 60 10/16/24 08:00 74 24 120/61 97 10/16/24 07:48 65 10/16/24 06:57 98.8 F 10/16/24 06:05 99.5 F 81 18 118/67 96 10/16/24 04:03 82 18 128/74 95 10/16/24 03:29 96 80 10/16/24 03:06 84 16 126/73 97 10/16/24 02:08 89 18 138/81 98 10/16/24 00:51 77 16 125/75 98 10/16/24 00:15 80 10/15/24 23:37 80 18 131/79 98 10/15/24 21:09 91 18 124/78 96 10/15/24 20:45 90 10/15/24 19:25 98.2 F 96 18 123/76 95 10/15/24 18:02 97.3 F L 96 30 H 100/67 94 L 10/15/24 17:03 100 10/15/24 17:00 35 H 10/15/24 16:56 99.2 F 56 L 40 H 126/77 92 L Intake and Output 10/15/24 10/16/24 10/16/24 22:59 06:59 14:59 Other: Weight 60.01 kg GENERAL EXAM: Alert, altered 73-year-old female, on Airvo high flow oxygen at 55 L and 65% FiO2, comfortable in no apparent distress. HEAD: Normocephalic. EYES: Normal reaction of pupils, equal size. NOSE: Clear with pink turbinates. THROAT: No erythema or exudates. NECK: No masses, no JVD. CHEST: No chest wall deformity. LUNGS: Equal air entry with no crackles, wheeze, rhonchi or dullness. CVS: S1 and S2 normal with no audible murmur, regular rhythm. ABDOMEN: No hepatosplenomegaly, normal bowel sounds, no guarding or rigidity. SPINE: No scoliosis or deformity SKIN: No rashes CENTRAL NERVOUS SYSTEM: No focal deficits, tone is normal in all 4 extremities. EXTREMITIES: There is no peripheral edema. No clubbing, no cyanosis. Peripheral pulses are intact. Results - Laboratory Findings CBC and BMP: 10/16/24 05:59 10/16/24 05:59 PT/INR, D-dimer PT 11.2 sec (10.0-12.5) 10/15/24 17:05 INR 1.0 (<1.2) 10/15/24 17:05 D-Dimer 5.88 mg/L FEU (<0.60) H 10/15/24 17:05 Abnormal lab findings: Abnormal Labs 10/15/24 10/15/24 10/15/24 17:05 17:05 17:05 WBC RBC MCHC Immature Gran # Neutrophils # Lymphocytes # 0.9 L Eosinophils # D-Dimer 5.88 H BUN 27 H BUN/Creatinine Ratio Glucose 247 H Plasma Lactic Acid Silvino Alkaline Phosphatase 128 H Total Protein Albumin Albumin/Globulin Ratio SARS-CoV-2 (PCR) 10/15/24 10/15/24 10/16/24 17:05 20:12 05:59 WBC 22.36 H RBC 4.05 L MCHC 31.9 L Immature Gran # 0.17 H Neutrophils # 20.83 H Lymphocytes # Eosinophils # 0 L D-Dimer BUN BUN/Creatinine Ratio Glucose Plasma Lactic Acid Silvino 2.4 H* 2.2 H* Alkaline Phosphatase Total Protein Albumin Albumin/Globulin Ratio SARS-CoV-2 (PCR) 10/16/24 10/16/24 05:59 09:00 WBC RBC MCHC Immature Gran # Neutrophils # Lymphocytes # Eosinophils # D-Dimer BUN BUN/Creatinine Ratio 40.17 H Glucose 145 H Plasma Lactic Acid Silvino Alkaline Phosphatase 132 H Total Protein 6.0 L Albumin 3.6 L Albumin/Globulin Ratio 1.50 L SARS-CoV-2 (PCR) Detected A - Diagnostic Findings Chest x-ray: image reviewed CT scan - chest: image reviewed Assessment and Plan Assessment: Acute hypoxemic respiratory failure secondary to possible healthcare acquired pneumonia, aspiration pneumonia, COVID-19 pneumonia Leukocytosis secondary to above assisted resident, poor historian Depression Hyperlipidemia Plan: The patient was seen and evaluated Imaging, labs and medications reviewed Continue to titrate down the FiO2 as tolerated Check a procalcitonin Add Zosyn for now Add albuterol HFA Continue Decadron Continue Lovenox Continue fluid resuscitation We will continue to follow and make further recommendation based on her clinical status I have personally seen and examined the patient, performed the documentation and the assessment and plan as written. Number of minutes spent on the visit: 20 Dictation was produced using [employer] dictation software. Please excuse any grammatical, word or spelling errors.
[2024-10-16] MEDS: ALBUTEROL HFA INHALER INHALATION SCH (15:21)
[2024-10-16] MEDS: ACETAMINOPHEN TAB 325 MG TAB PO PRN (21:02)
[2024-10-16] MEDS: ATORVASTATIN 10 MG TAB PO SCH (21:03)
[2024-10-16] MEDS: ASPIRIN 81 MG PO SCH (21:03)
[2024-10-16] MEDS: PARoxetine 10 MG TAB PO SCH (22:16)
[2024-10-17] MEDS: traMADol 50 MG TAB PO PRN (00:42)
[2024-10-17 06:20] LABS: Glucose,Whole Blood 143 mg/dL (70-110)
[2024-10-17 08:03] LABS: Basophils % (A) 0 %; Eosinophils % (A) 0 %; HCT 37.9 % (34.0-46.0); HGB 11.8 gm/dL (11.4-16.0); Hypochromasia Moderate; Lymphocytes # (A) 0.8 k/uL (1.0-4.8); Lymphocytes % (A) 7 %; MCH 30.7 pg (25.0-35.0); MCHC 31.2 g/dL (31.0-37.0); MCV 98.4 fL (80.0-100.0); Mean Platelet Volume 7.6; Monocytes # (A) 0.3 k/uL (0-1.0); Monocytes % (A) 2 %; Neutrophils # (A) 9.8 k/uL (1.3-7.7); Neutrophils % (A) 90 %; Platelet Count 255 k/uL (150-450); RBC 3.85 m/uL (3.80-5.40); RDW 13.9 % (11.5-15.5); WBC 10.9 k/uL (3.8-10.6)
[2024-10-17 11:26] LABS: Glucose,Whole Blood 147 mg/dL (70-110)
[2024-10-17 16:17] LABS: Glucose,Whole Blood 158 mg/dL (70-110)
--- NOTE | 2024-10-17 16:37 | P.PN ---
Subjective Progress Note Date: 10/17/24 This is a 73-year-old female patient who resides in a extended care facility and was brought into the emergency room yesterday after being found to be severely hypoxic and had recently been diagnosed with COVID infection. She has a history of hyperlipidemia, depression, osteoarthritis, non-smoker. She is seen in consultation in the emergency department. Poor historian. Difficult to get much information from the patient. She answers most questions with "I don't know". Chest x-ray reveals no acute pulmonary process. CT angiogram ruled out pulmonary embolism. There is patchy groundglass and consolidative opacities in the bilateral lungs with tree-in-bud nodularity suggestive of multifocal pne umonia. Fluid distention of the entire visualized esophagus suggestive of reflux. Moderate size hiatal hernia. White count 22.3. Hemoglobin 12.2. Platelets 283. Sodium 139. Potassium 4.3. Bicarb 24. BUN 24. Creatinine 0.6. Glucose 145. Influenza screen negative. RSV screen negative. COVID-19 screen positive. She is requiring Airvo high flow oxygen at 50 L and 65% FiO2 to maintain O2 saturations in the low 90s. The patient is seen today October 17, 2024 in follow-up on the selective care unit. She is currently sitting up in bed. She remains on Airvo high flow oxygen at 50 L and 55%. White count 10.9. Hemoglobin 11.8. Platelets 255. Glucose 147. proBNP 2190. She remains on Decadron. Continued on Lovenox. Continued on bronchodilators. Currently on Zosyn. Procalcitonin negative at 0.07. Objective - Vital Signs Vital signs: Vital Signs Temp 98.7 F 10/17/24 16:18 Pulse 64 10/17/24 16:18 Resp 20 10/17/24 16:18 BP 105/55 10/17/24 16:18 Pulse Ox 97 10/17/24 16:18 FiO2 54 10/17/24 16:21 Intake & Output 10/16/24 10/17/24 10/17/24 18:59 06:59 18:59 Intake Total 1280 Balance 1280 Weight 67 kg Intake: Intake, IV Titration 500 Amount Piperacillin-Tazobactam 3 200 .375 gm In Sodium Chloride 0.9% 100 ml @ 25 mls/hr IVPB Q8HR [facility] Rx# :[id number] Sodium Chloride 0.9% 1, 300 000 ml @ 75 mls/hr IV . [id number] [facility] Rx#:[id number] Oral 780 Other: Voiding Method External Catheter Incontinent External Catheter # Voids 1 1 # Bowel Movements 1 - Exam GENERAL EXAM: Alert, altered 73-year-old female, on Airvo high flow oxygen at 50 L and 55% FiO2, comfortable in no apparent distress. HEAD: Normocephalic. EYES: Normal reaction of pupils, equal size. NOSE: Clear with pink turbinates. THROAT: No erythema or exudates. NECK: No masses, no JVD. CHEST: No chest wall deformity. LUNGS: Equal air entry with few scattered rhonchi. CVS: S1 and S2 normal with no audible murmur, regular rhythm. ABDOMEN: No hepatosplenomegaly, normal bowel sounds, no guarding or rigidity. SPINE: No scoliosis or deformity SKIN: No rashes CENTRAL NERVOUS SYSTEM: No focal deficits, tone is normal in all 4 extremities. EXTREMITIES: There is no peripheral edema. No clubbing, no cyanosis. Peripheral pulses are intact. - Labs CBC & Chem 7: 10/17/24 07:24 10/16/24 05:59 Labs: Abnormal Lab Results - Last 24 Hours (Table) 10/17/24 10/17/24 10/17/24 Range/Units 06:18 07:24 11:25 WBC 10.9 H (3.8-10.6) k/uL Neutrophils # 9.8 H (1.3-7.7) k/uL Lymphocytes # 0.8 L (1.0-4.8) k/uL POC Glucose (mg/dL) 143 H 147 H (70-110) mg/dL 10/17/24 Range/Units 16:16 WBC (3.8-10.6) k/uL Neutrophils # (1.3-7.7) k/uL Lymphocytes # (1.0-4.8) k/uL POC Glucose (mg/dL) 158 H (70-110) mg/dL Assessment and Plan Assessment: Acute hypoxemic respiratory failure secondary to COVID pneumonia, procalcitonin negative Coronavirus infection Leukocytosis secondary to above snf resident, poor historian Depression Hyperlipidemia Plan: The patient was seen and evaluated Labs and medications reviewed Titrate down the FiO2 as tolerated Procalcitonin negative Zosyn discontinued Continue Decadron Continue Lovenox We will continue to follow I have personally seen and examined the patient, performed the documentation and the assessment and plan as written. Number of minutes spent on the visit: 10 Dictation was produced using [employer] dictation software. Please excuse any grammatical, word or spelling errors.
[2024-10-17 20:13] LABS: Glucose,Whole Blood 152 mg/dL (70-110)
[2024-10-18 06:07] LABS: Glucose,Whole Blood 129 mg/dL (70-110)
--- NOTE | 2024-10-18 06:30 | P.PN ---
Subjective Progress Note Date: 10/17/24 Patient is 73-year-old female was transferred from [facility] because of severe hypoxemia patient does not use any oxygen there. Patient is found to have multifocal infiltrates along with air bronchograms and consolidative changes in the right lower lung almodovar on the CAT scan no pulmonary embolism was evident patient's BNP is not elevated patient does not have any history of congestive heart failure. Patient was evaluated by pulmonology. Patient does not have any fever. Patient was started on Decadron and Zosyn. Patient was on 100% nonrebreather presently on high flow oxygen. Patient is alert oriented times almost 3 and the patient does have history of dementia uses donepezil. Patient was apparently positive for COVID-19 not sure when this was obtained. We are obtaining COVID-19 test here 10/17/2024 Patient is seen in follow-up today continues on Airvo 50/54 FiO2 does not report any shortness of breath at this time. Patient being followed by pulmonary and continued on supportive care along with Decadron and will continue. Procalcitonin was low at 0.07 and will discontinue antibiotics. White count is trending down and hemoglobin remained stable. Plan is to return to [facility] on dis charge Review of systems: Constitutional: No reports of fatigue, fever, or chills Cardiovascular: No reports of chest pain or palpitations Respiratory: No reports of shortness of breath or cough GI: No reports of nausea, vomiting, or diarrhea : No reports of dysuria or retention Neurovascular: reports of weakness PHYSICAL EXAMINATION: GENERAL: The patient is alert and oriented x2, not in any acute distress. Well developed, elderly appearing, ill-appearing HEENT: Pupils are round and equally reacting to light. EOMI. No scleral icterus. No conjunctival pallor. Normocephalic, atraumatic. No pharyngeal erythema. No thyromegaly. CARDIOVASCULAR: S1 and S2 muffled PULMONARY: Diminished breath sounds bilaterally otherwise chest is clear to auscultation, no wheezing or crackles. ABDOMEN: Soft, nontender, nondistended, normoactive bowel sounds. No palpable organomegaly. MUSCULOSKELETAL: No joint swelling or deformity. EXTREMITIES: No cyanosis, clubbing, or pedal edema. NEUROLOGICAL: Gross neurological examination did not reveal any focal deficits. Diffusely weak SKIN: No rashes. Assessment and plan -Acute hypoxic respiratory failure: Secondary to COVID-19 infection. -Possible bacterial pneumonia, ruled out, procalcitonin is negative -Hyperlipidemia -Depression -Gastroesophageal reflux disease -Possible dementia GI prophylaxis Pepcid DVT prophylaxis: Lovenox Full code Plan: Patient is continued on Airvo currently at 50/54 FiO2 and weaning as tolerated. Pulmonary following and will continue with supportive care and patient is maintained on Decadron Encouraged increase activity as tolerated and oral intake Will follow-up with repeat labs and replace electrolytes per protocol Plan will be for patient to return to [facility] where she resides The impression and plan of care has been dictated by Clara Espinal, Nurse Practitioner as directed. Dr. Parminder MD I have performed a history and examination and MDM of this patient, discussed the same with the dictator, and agree with the dictator's assessment and plan as written ,documented as a scribe. Based on total visit time, I have performed more than 50% of the visit. Objective - Vital Signs Vital signs: Vital Signs Temp 98.3 F 10/17/24 08:00 Pulse 64 10/17/24 08:00 Resp 20 10/17/24 08:00 BP 124/64 10/17/24 08:00 Pulse Ox 98 10/17/24 08:00 FiO2 54 10/17/24 08:02 Intake & Output 10/16/24 10/17/24 10/17/24 18:59 06:59 18:59 Intake Total 120 Balance 120 Weight 67 kg Intake: Oral 120 Other: Voiding Method External Catheter # Voids 1 # Bowel Movements 1 - Labs CBC & Chem 7: 10/17/24 07:24 10/16/24 05:59 Labs: Abnormal Lab Results - Last 24 Hours (Table) 10/16/24 10/16/24 10/16/24 Range/Units 05:59 05:59 09:00 WBC 22.36 H (4.50-10.00) X 10*3/uL RBC 4.05 L (4.10-5.20) X 10*6/uL MCHC 31.9 L (32.0-37.0) g/dL Immature Gran # 0.17 H (0.00-0.04) X 10*3/uL Neutrophils # 20.83 H (1.80-7.70) X 10*3/uL Lymphocytes # (1.0-4.8) k/uL Eosinophils # 0 L (0.04-0.35) X 10*3/uL BUN/Creatinine Ratio 40.17 H (12.00-20.00) Ratio Glucose 145 H (70-110) mg/dL POC Glucose (mg/dL) (70-110) mg/dL Alkaline Phosphatase 132 H (41-126) U/L Total Protein 6.0 L (6.2-8.2) g/dL Albumin 3.6 L (3.8-4.9) g/dL Albumin/Globulin Ratio 1.50 L (1.60-3.17) Ratio SARS-CoV-2 (PCR) Detected A (Not Detectd) 10/17/24 10/17/24 Range/Units 06:18 07:24 WBC 10.9 H (4.50-10.00) X 10*3/uL RBC (4.10-5.20) X 10*6/uL MCHC (32.0-37.0) g/dL Immature Gran # (0.00-0.04) X 10*3/uL Neutrophils # 9.8 H (1.80-7.70) X 10*3/uL Lymphocytes # 0.8 L (1.0-4.8) k/uL Eosinophils # (0.04-0.35) X 10*3/uL BUN/Creatinine Ratio (12.00-20.00) Ratio Glucose (70-110) mg/dL POC Glucose (mg/dL) 143 H (70-110) mg/dL Alkaline Phosphatase (41-126) U/L Total Protein (6.2-8.2) g/dL Albumin (3.8-4.9) g/dL Albumin/Globulin Ratio (1.60-3.17) Ratio SARS-CoV-2 (PCR) (Not Detectd)
[2024-10-18 11:24] LABS: Glucose,Whole Blood 147 mg/dL (70-110)
--- NOTE | 2024-10-18 15:09 | P.PN ---
Subjective Progress Note Date: 10/18/24 Principal diagnosis: Coronavirus infection. This is a 73-year-old female patient who resides in a extended care facility and was brought into the emergency room yesterday after being found to be severely hypoxic and had recently been diagnosed with COVID infection. She has a history of hyperlipidemia, depression, osteoarthritis, non-smoker. She is seen in consultation in the emergency department. Poor historian. Difficult to get much information from the patient. She answers most questions with "I don't know". Chest x-ray reveals no acute pulmonary process. CT angiogram ruled out pulmonary embolism. There is patchy groundglass and consolidative opacities in the bilateral lungs with tree-in-bud nodularity suggestive of multifocal pneumonia. Fluid distention of the entire visualized esophagus suggestive of reflux. Moderate size hiatal hernia. White count 22.3. Hemoglobin 12.2. Platelets 283. Sodium 139. Potassium 4.3. Bicarb 24. BUN 24. Creatinine 0 .6. Glucose 145. Influenza screen negative. RSV screen negative. COVID-19 screen positive. She is requiring Airvo high flow oxygen at 50 L and 65% FiO2 to maintain O2 saturations in the low 90s. The patient is seen today October 17, 2024 in follow-up on the selective care unit. She is currently sitting up in bed. She remains on Airvo high flow oxygen at 50 L and 55%. White count 10.9. Hemoglobin 11.8. Platelets 255. Glucose 147. proBNP 2190. She remains on Decadron. Continued on Lovenox. Continued on bronchodilators. Currently on Zosyn. Procalcitonin negative at 0.07. Progress note dated October 18, 2024. 73-year-old female who was admitted with a diagnosis of coronavirus infection, and hypoxemic respiratory failure. The patient is seen today in room 373. The patient is currently getting saline at 75 cc an hour. The patient continues on Airvo, at 45 L/min with an FiO2 of 50%. Current labs include a glucose of 147. She appears in no acute distress. She is resting comfortably in bed. Objective - Vital Signs Vital signs: Vital Signs Temp 98.1 F 10/18/24 11:33 Pulse 49 L 10/18/24 11:33 Resp 16 10/18/24 11:33 BP 126/64 12/10/24 11:33 Pulse Ox 100 10/18/24 11:33 FiO2 50 10/18/24 11:19 Intake & Output 10/17/24 10/18/24 10/18/24 18:59 06:59 18:59 Intake Total 1520 480 Output Total 350 Balance 1520 -350 480 Intake: Intake, IV Titration 500 Amount Piperacillin-Tazobactam 3 200 .375 gm In Sodium Chloride 0.9% 100 ml @ 25 mls/hr IVPB Q8HR [facility] Rx# :[id number] Sodium Chloride 0.9% 1, 300 000 ml @ 75 mls/hr IV . [id number] [facility] Rx#:[id number] Oral 1020 480 Output: Urine 350 Other: Voiding Method Incontinent External Catheter External Catheter External Catheter # Voids 1 # Bowel Movements 0 - Exam No acute distress, oriented 3. Currently on Airvo. HEENT examination is grossly unremarkable. Mucous membranes are moist. No oral lesions. Neck supple. Full range of motion. No adenopathy thyromegaly or neck vein distention. Cardiovascular examination reveals regular rhythm rate. S1-S2 normal. No S3 or S4. No discernible murmur noted. Lungs reveal bilateral rhonchi. No wheezes. No crackles. Breath sounds equal bilaterally. Abdomen soft bowel sounds are heard. No masses or tenderness. Extremities are intact. No cyanosis clubbing or edema. Skin is without rash or lesion. Neurologic examination is brief but nonfocal. - Labs CBC & Chem 7: 10/17/24 07:24 10/16/24 05:59 Labs: Abnormal Lab Results - Last 24 Hours (Table) 10/17/24 10/17/24 10/18/24 Range/Units 16:16 20:11 06:06 POC Glucose (mg/dL) 158 H 152 H 129 H (70-110) mg/dL 10/18/24 Range/Units 11:22 POC Glucose (mg/dL) 147 H (70-110) mg/dL Assessment and Plan Assessment: Acute hypoxemic respiratory failure secondary to COVID pneumonia. Coronavirus infection. Leukocytosis secondary to above. long term resident, poor historian. Depression. Hyperlipidemia. Plan: Plan dated October 18, 2024. The patient is seen today in room 373. Labs, x-rays, medications are all reviewed. The patient continues on saline at 75 cc an hour. The patient is getting Airvo at 45 L/min with an FiO2 of 50%. She is in no distress. Labs, x- rays, and all medications are reviewed. The Zosyn was discontinued. She continues on Decadron and continues on Lovenox. We will continue to follow make recommendations along the way. Time with Patient: Less than 30
[2024-10-18 16:30] LABS: Glucose,Whole Blood 100 mg/dL (70-110)
[2024-10-18 20:23] LABS: Glucose,Whole Blood 115 mg/dL (70-110)
[2024-10-19 06:11] LABS: Glucose,Whole Blood 115 mg/dL (70-110)
--- NOTE | 2024-10-19 06:25 | P.PN ---
Subjective Progress Note Date: 10/18/24 Patient is 73-year-old female was transferred from [facility] because of severe hypoxemia patient does not use any oxygen there. Patient is found to have multifocal infiltrates along with air bronchograms and consolidative changes in the right lower lung almodovar on the CAT scan no pulmonary embolism was evident patient's BNP is not elevated patient does not have any history of congestive heart failure. Patient was evaluated by pulmonology. Patient does not have any fever. Patient was started on Decadron and Zosyn. Patient was on 100% nonrebreather presently on high flow oxygen. Patient is alert oriented times almost 3 and the patient does have history of dementia uses donepezil. Patient was apparently positive for COVID-19 not sure when this was obtained. We are obtaining COVID-19 test here 10/17/2024 Patient is seen in follow-up today continues on Airvo 50/54 FiO2 does not report any shortness of breath at this time. Patient being followed by pulmonary and continued on supportive care along with Decadron and will continue. Procalcitonin was low at 0.07 and will discontinue antibiotics. White count is trending down and hemoglobin remained stable. Plan is to return to [facility] on dis charge 10/18/2024 Patient is seen in follow-up today continues on Airvo although is weaning and currently 40/45 FiO2. Patient denies any worsening shortness of breath and reports is eating and tolerating diet. Patient with significant weakness mostly bedbound recommend PT/OT therapy evaluation and getting up into the chair more often. Patient is afebrile and maintained on steroids and will continue. Review of systems: Constitutional: No reports of fatigue, fever, or chills Cardiovascular: No reports of chest pain or palpitations Respiratory: No reports of shortness of breath or cough GI: No reports of nausea, vomiting, or diarrhea : No reports of dysuria or retention Neurovascular: reports of weakness PHYSICAL EXAMINATION: GENERAL: The patient is alert and oriented x2, not in any acute distress. Well developed, elderly appearing, ill-appearing HEENT: Pupils are round and equally reacting to light. EOMI. No scleral icterus. No conjunctival pallor. Normocephalic, atraumatic. No pharyngeal erythema. No thyromegaly. CARDIOVASCULAR: S1 and S2 muffled PULMONARY: Diminished breath sounds bilaterally otherwise chest is clear to auscultation, no wheezing or crackles. ABDOMEN: Soft, nontender, nondistended, normoactive bowel sounds. No palpable organomegaly. MUSCULOSKELETAL: No joint swelling or deformity. EXTREMITIES: No cyanosis, clubbing, or pedal edema. NEUROLOGICAL: Gross neurological examination did not reveal any focal deficits. Diffusely weak SKIN: No rashes. Assessment and plan -Acute hypoxic respiratory failure: Secondary to COVID-19 infection. -Possible bacterial pneumonia, ruled out, procalcitonin is negative -Hyperlipidemia -Depression -Gastroesophageal reflux disease -Possible dementia GI prophylaxis Pepcid DVT prophylaxis: Lovenox Full code Plan: Patient is continued on Airvo currently at 40/45 FiO2 and weaning as tolerated. Pulmonary following and will continue with supportive care and patient is maintained on Decadron Encouraged increase activity as tolerated and oral intake. Recommend aspiration precautions and supervision with meals Will follow-up with repeat labs and replace electrolytes per protocol Plan will be for patient to return to [facility] where she resides once medically stable The impression and plan of care has been dictated by Clara Espinal, Nurse Practitioner as directed. Dr. Parminder MD I have performed a history and examination and MDM of this patient, discussed the same with the dictator, and agree with the dictator's assessment and plan as written ,documented as a scribe. Based on total visit time, I have performed more than 50% of the visit. Objective - Vital Signs Vital signs: Vital Signs Temp 97.9 F 10/19/24 04:10 Pulse 49 L 10/19/24 04:10 Resp 16 10/19/24 04:10 BP 153/74 10/19/24 04:10 Pulse Ox 96 10/19/24 04:10 FiO2 40 10/19/24 04:22 Intake & Output 10/18/24 10/18/24 10/19/24 06:59 18:59 06:59 Intake Total 720 Output Total 350 1100 650 Balance -350 -380 -650 Weight 67.5 kg Intake: Oral 720 Output: Urine 350 1100 650 Other: Voiding Method External Catheter External Catheter External Catheter # Voids 1 # Bowel Movements 0 1 - Labs CBC & Chem 7: 10/17/24 07:24 10/16/24 05:59 Labs: Abnormal Lab Results - Last 24 Hours (Table) 10/18/24 10/18/24 10/19/24 Range/Units 11:22 20:21 06:09 POC Glucose (mg/dL) 147 H 115 H 115 H (70-110) mg/dL
[2024-10-19 07:55] LABS: Basophils % (A) 0 %; Eosinophils % (A) 0 %; HCT 37.6 % (34.0-46.0); HGB 12.2 gm/dL (11.4-16.0); Lymphocytes # (A) 0.8 k/uL (1.0-4.8); Lymphocytes % (A) 11 %; MCH 31.3 pg (25.0-35.0); MCHC 32.4 g/dL (31.0-37.0); MCV 96.7 fL (80.0-100.0); Monocytes # (A) 0.4 k/uL (0-1.0); Monocytes % (A) 5 %; Neutrophils % (A) 83 %; Platelet Count 274 k/uL (150-450); RBC 3.89 m/uL (3.80-5.40); RDW 13.7 % (11.5-15.5); WBC 7.2 k/uL (3.8-10.6)
[2024-10-19 08:18] LABS: African American GFR (CKD) >90 (>60 ml/min/1.73 sqM); Anion Gap 4 mmol/L; Blood Urea Nitrogen 20 mg/dL (7-17); Calcium 7.9 mg/dL (8.4-10.2); Carbon Dioxide 26 mmol/L (22-30); Chloride 109 mmol/L (98-107); Glucose 100 mg/dL (74-99); Magnesium 1.9 mg/dL (1.6-2.3); Non-African American GFR(CKD) >90 (>60 ml/min/1.73 sqM); Potassium 4.1 mmol/L (3.5-5.1); Sodium 139 mmol/L (137-145)
[2024-10-19 12:04] LABS: Glucose,Whole Blood 144 mg/dL (70-110)
--- NOTE | 2024-10-19 15:57 | P.PN ---
Subjective Progress Note Date: 10/19/24 Principal diagnosis: Coronavirus infection. This is a 73-year-old female patient who resides in a extended care facility and was brought into the emergency room yesterday after being found to be severely hypoxic and had recently been diagnosed with COVID infection. She has a history of hyperlipidemia, depression, osteoarthritis, non-smoker. She is seen in consultation in the emergency department. Poor historian. Difficult to get much information from the patient. She answers most questions with "I don't know". Chest x-ray reveals no acute pulmonary process. CT angiogram ruled out pulmonary embolism. There is patchy groundglass and consolidative opacities in the bilateral lungs with tree-in-bud nodularity suggestive of multifocal pneumonia. Fluid distention of the entire visualized esophagus suggestive of reflux. Moderate size hiatal hernia. White count 22.3. Hemoglobin 12.2. Platelets 283. Sodium 139. Potassium 4.3. Bicarb 24. BUN 24. Creatinine 0 .6. Glucose 145. Influenza screen negative. RSV screen negative. COVID-19 screen positive. She is requiring Airvo high flow oxygen at 50 L and 65% FiO2 to maintain O2 saturations in the low 90s. The patient is seen today October 17, 2024 in follow-up on the selective care unit. She is currently sitting up in bed. She remains on Airvo high flow oxygen at 50 L and 55%. White count 10.9. Hemoglobin 11.8. Platelets 255. Glucose 147. proBNP 2190. She remains on Decadron. Continued on Lovenox. Continued on bronchodilators. Currently on Zosyn. Procalcitonin negative at 0.07. Progress note dated October 18, 2024. 73-year-old female who was admitted with a diagnosis of coronavirus infection, and hypoxemic respiratory failure. The patient is seen today in room 373. The patient is currently getting saline at 75 cc an hour. The patient continues on Airvo, at 45 L/min with an FiO2 of 50%. Current labs include a glucose of 147. She appears in no acute distress. She is resting comfortably in bed. This note dated October 19, 2024. 73-year-old female seen today in room 373. The patient is stable. She is on 3 L of oxygen. She is getting saline at 75 cc an hour. She has no specific complaints today. The patient was diagnosed with coronavirus infection, and hypoxemic respiratory failure. She is resting comfortably in bed. She has no acute distress. Labs today include a white count 7 globin 12.2, hematocrit 37.6, and a platelet count is normal. Sodium 139, potassium 4.1, chlorides 109, CO2 26, BUN 20, creatinine 0.53. Glucose is 144. Calcium is 7.9. Objective - Vital Signs Vital signs: Vital Signs Temp 98.1 F 10/19/24 11:26 Pulse 58 L 10/19/24 11:26 Resp 14 10/19/24 11:26 BP 111/59 10/19/24 11:26 Pulse Ox 99 10/19/24 11: FiO2 40 10/19/24 08:10 Intake & Output 10/18/24 10/19/24 10/19/24 18:59 06:59 18:59 Intake Total 720 240 Output Total 1100 650 Balance -380 -650 240 Weight 67.5 kg Intake: Oral 720 240 Output: Urine 1100 650 Other: Voiding Method External Catheter External Catheter External Catheter # Voids 1 # Bowel Movements 0 1 - Exam No acute distress, oriented 3. The patient is currently on 3 L of oxygen. HEENT examination is grossly unremarkable. Mucous membranes are moist. No oral lesions. Neck supple. Full range of motion. No adenopathy thyromegaly or neck vein distention. Cardiovascular examination reveals regular rhythm rate. S1-S2 normal. No S3 or S4. No discernible murmur noted. Lungs reveal bilateral rhonchi. No wheezes. No crackles. Breath sounds equal bilaterally. Abdomen soft bowel sounds are heard. No masses or tenderness. Extremities are intact. No cyanosis clubbing or edema. Skin is without rash or lesion. Neurologic examination is brief but nonfocal. - Labs CBC & Chem 7: 10/19/24 07:05 10/19/24 07:05 Labs: Abnormal Lab Results - Last 24 Hours (Table) 10/18/24 10/19/24 10/19/24 Range/Units 20:21 06:09 07:05 Lymphocytes # 0.8 L (1.0-4.8) k/uL Chloride (98-107) mmol/L BUN (7-17) mg/dL Glucose (74-99) mg/dL POC Glucose (mg/dL) 115 H 115 H (70-110) mg/dL Calcium (8.4-10.2) mg/dL 10/19/24 10/19/24 Range/Units 07:05 12:03 Lymphocytes # (1.0-4.8) k/uL Chloride 109 H (98-107) mmol/L BUN 20 H (7-17) mg/dL Glucose 100 H (74-99) mg/dL POC Glucose (mg/dL) 144 H (70-110) mg/dL Calcium 7.9 L (8.4-10.2) mg/dL Assessment and Plan Assessment: Acute hypoxemic respiratory failure secondary to COVID pneumonia. Coronavirus infection. Leukocytosis secondary to above. [facility] resident, poor historian. Depression. Hyperlipidemia. Plan: Plan dated October 18, 2024. The patient is seen today in room 373. Labs, x-rays, medications are all reviewed. The patient continues on saline at 75 cc an hour. The patient is getting Airvo at 45 L/min with an FiO2 of 50%. She is in no distress. Labs, x- rays, and all medications are reviewed. The Zosyn was discontinued. She continues on Decadron and continues on Lovenox. We will continue to follow make recommendations along the way. Plan dated October 19, 2024. The patient is seen today in room 373. She appears to be much more stable. She is on 3 L of oxygen. Yesterday she was on Airvo. The patient was getting saline at 75 cc an hour. Labs, x-rays, medications are reviewed. We will continue to follow the patient, make recommendations along the way. Prognosis is guarded. No additional recommendations are made at this time. Time with Patient: Less than 30
[2024-10-20 01:27] VITALS: RESP 18
--- NOTE | 2024-10-20 05:28 | P.PN ---
Subjective Progress Note Date: 10/19/24 Patient is 73-year-old female was transferred from [facility] because of severe hypoxemia patient does not use any oxygen there. Patient is found to have multifocal infiltrates along with air bronchograms and consolidative changes in the right lower lung almodovar on the CAT scan no pulmonary embolism was evident patient's BNP is not elevated patient does not have any history of congestive heart failure. Patient was evaluated by pulmonology. Patient does not have any fever. Patient was started on Decadron and Zosyn. Patient was on 100% nonrebreather presently on high flow oxygen. Patient is alert oriented times almost 3 and the patient does have history of dementia uses donepezil. Patient was apparently positive for COVID-19 not sure when this was obtained. We are obtaining COVID-19 test here 10/17/2024 Patient is seen in follow-up today continues on Airvo 50/54 FiO2 does not report any shortness of breath at this time. Patient being followed by pulmonary and continued on supportive care along with Decadron and will continue. Procalcitonin was low at 0.07 and will discontinue antibiotics. White count is trending down and hemoglobin remained stable. Plan is to return to [facility] on dis charge 10/18/2024 Patient is seen in follow-up today continues on Airvo although is weaning and currently 40/45 FiO2. Patient denies any worsening shortness of breath and reports is eating and tolerating diet. Patient with significant weakness mostly bedbound recommend PT/OT therapy evaluation and getting up into the chair more often. Patient is afebrile and maintained on steroids and will continue. 10/19/2024 Patient is seen in follow-up this morning has been weaned and currently on 4 L via nasal cannula reporting no significant shortness of breath. Patient has been tolerating diet with no reported nausea and vomiting I recommend aspiration precautions with head of the bed elevated 30 to 45 degrees at all times. Patient is afebrile maintained on Decadron along with supportive care. Plan for patient to return to [facility] where she resides on discharge. Will follow-up with case management regarding discharge planning in the next 24 hours if respiratory status remains stable. Review of systems: Constitutional: No reports of fatigue, fever, or chills Cardiovascular: No reports of chest pain or palpitations Respiratory: No reports of worsening shortness of breath or cough GI: No reports of nausea, vomiting, or diarrhea : No reports of dysuria or retention Neurovascular: reports of weakness PHYSICAL EXAMINATION: GENERAL: The patient is alert and oriented x2, not in any acute distress. Well developed, elderly appearing, ill-appearing, currently on 4 L via nasal cannula HEENT: Pupils are round and equally reacting to light. EOMI. No scleral icterus. No conjunctival pallor. Normocephalic, atraumatic. No pharyngeal erythema. No thyromegaly. CARDIOVASCULAR: S1 and S2 muffled PULMONARY: Diminished breath sounds bilaterally otherwise chest is clear to auscultation, no wheezing or crackles. ABDOMEN: Soft, nontender, nondistended, normoactive bowel sounds. No palpable organomegaly. MUSCULOSKELETAL: No joint swelling or deformity. EXTREMITIES: No cyanosis, clubbing, or pedal edema. NEUROLOGICAL: Gross neurological examination did not reveal any focal deficits. Diffusely weak SKIN: No rashes. Assessment: -Acute hypoxic respiratory failure: Secondary to COVID-19 infection. -Possible bacterial pneumonia, ruled out, procalcitonin is negative -Hyperlipidemia -Depression -Gastroesophageal reflux disease -Probable dementia GI prophylaxis Pepcid DVT prophylaxis: Lovenox Full code Plan: Patient was continued on Airvo and most recently weaned and currently on 4 L via nasal cannula and tolerating well Pulmonary following and will continue with supportive care and patient is maintained on Decadron Encouraged increase activity as tolerated and oral intake. Recommend aspiration precautions and supervision with meals If respiratory status remains stable, plans for discharge in the next 24 hours Plan will be for patient to return to [facility] where she resides once medically stable The impression and plan of care has been dictated by Clara Espinal, Nurse Practitioner as directed. Dr. Parminder MD I have performed a history and examination and MDM of this patient, discussed the same with the dictator, and agree with the dictator's assessment and plan as written ,documented as a scribe. Based on total visit time, I have performed more than 50% of the visit. Objective - Vital Signs Vital signs: Vital Signs Temp 97.7 F 10/19/24 08:34 Pulse 49 L 10/19/24 04:10 Resp 14 10/19/24 08:34 BP 106/57 10/19/24 08:34 Pulse Ox 98 10/19/24 08:10 FiO2 40 12/11/24 08:10 Intake & Output 10/18/24 10/19/24 10/19/24 18:59 06:59 18:59 Intake Total 720 Output Total 1100 650 Balance -380 -650 Weight 67.5 kg Intake: Oral 720 Output: Urine 1100 650 Other: Voiding Method External Catheter External Catheter External Catheter # Voids 1 # Bowel Movements 0 1 - Labs CBC & Chem 7: 10/19/24 07:05 10/19/24 07:05 Labs: Abnormal Lab Results - Last 24 Hours (Table) 10/18/24 10/18/24 10/19/24 Range/Units 11:22 20:21 06:09 Lymphocytes # (1.0-4.8) k/uL Chloride (98-107) mmol/L BUN (7-17) mg/dL Glucose (74-99) mg/dL POC Glucose (mg/dL) 147 H 115 H 115 H (70-110) mg/dL Calcium (8.4-10.2) mg/dL 10/19/24 10/19/24 Range/Units 07:05 07:05 Lymphocytes # 0.8 L (1.0-4.8) k/uL Chloride 109 H (98-107) mmol/L BUN 20 H (7-17) mg/dL Glucose 100 H (74-99) mg/dL POC Glucose (mg/dL) (70-110) mg/dL Calcium 7.9 L (8.4-10.2) mg/dL
--- NOTE | 2024-10-20 11:49 | P.DS ---
Providers Date of admission: 10/15/24 18:49 Expected date of discharge: 10/20/24 Attending physician: Geovani Linton Consults: 10/15/24 18:48 Consult Physician Routine Consulting Provider: Dana Ken Reason/Comments: hypoxia Do you want consulting provider notified?: Yes Primary care physician: [facility] Course: Final diagnosis -Acute hypoxic respiratory failure: Secondary to COVID-19 infection. -Possible bacterial pneumonia, ruled out, procalcitonin is negative -Hyperlipidemia -Depression -Gastroesophageal reflux disease -Probable dementia GI prophylaxis Pepcid DVT prophylaxis: Lovenox Full code Discharge disposition Patient is being discharged in a stable condition with guarded prognosis to [facility]. Patient will follow-up with Dr. Montes in the outpatient setting upon discharge. Patient is to continue with Decadron taper and 4 L of oxygen via nasal cannula. Patient to follow-up with pulmonary outpatient as scheduled. Total time taken is greater than 35 minutes. Hospital course This is a 73 year-old female who was recently admitted with acute hypoxic respiratory failure secondary to acute COVID 19 infection. Patient initially requiring Airvo and has weaned as tolerated and currently on 4 L via nasal cannula. Patient is on a steroid taper and will continue Decadron as prescribed below. Patient was evaluated by speech as patient was having difficulty with swallowing and is high risk for aspiration recommend dysphagia 2 ground diet with aspiration precautions and head of the bed elevated 30 to 45 degrees at all times along with supervision with meals. Patient will be returning to [facility] on discharge. Patient has been cleared by consultation. Please refer to consultation notes for further HPI. Currently no reports of chest pain, shortness of breath, or palpitations. Patient is afebrile. No reports of nausea or vomiting and patient is tolerating diet. Patient will be going to [facility] today. Guarded prognosis and high risk for readmissions given significant comorbidities. Physical exam: Gen: This is a 73-year-old female who is awake, alert and oriented x 2, baseline, well-developed, elderly appearing, ill-appearing HEENT: Head is atraumatic, normocephalic. Pupils equal, round. Sclerae is anicteric. NECK: Supple. No JVD. No lymphadenopathy. No thyromegaly. LUNGS: Diminished breath sounds bilaterally otherwise clear to auscultation. No wheezes or rhonchi. No intercostal retractions. HEART: S1, S2 are muffled ABDOMEN: Soft. Bowel sounds are present. No masses. No tenderness. EXTREMITIES: No pedal edema. No calf tenderness. NEUROLOGICAL: Patient is awake, alert and oriented x 2. Cranial nerves 2 through 12 are grossly intact. Diffusely weak Please refer to medication reconciliation sheet for a list of medications. The impression and plan of care has been dictated by Clara Espinal, Nurse Practitioner as directed. Dr. Parminder MD I have performed a history and examination and MDM of this patient, discussed the same with the dictator, and agree with the dictator's assessment and plan as written ,documented as a scribe. Based on total visit time, I have performed more than 50% of the visit. Patient Condition at Discharge: Fair Plan - Discharge Summary Discharge Rx Participant: No New Discharge Prescriptions: New Albuterol Inhaler [Ventolin Hfa Inhaler] 2 puff INHALATION RT-QID each dexAMETHasone [Decadron] 4 mg PO TID #24 tablet Enoxaparin [Lovenox] 40 mg SQ DAILY each Famotidine [Pepcid] 20 mg PO BID tab Continue PARoxetine HCL [Paxil] 30 mg PO HS Aspirin 81 mg PO BID #60 tab Ferrous Sulfate [Iron (65 MG Elemental)] 325 mg PO DAILY traMADol HCl [Ultram] 50 mg PO Q6H PRN #6 tab PRN Reason: Pain Acetaminophen Tab [Tylenol] 650 mg PO Q6HR PRN tab PRN Reason: Mild Pain Or Fever > 100.5 Cyanocobalamin [Vitamin B-12] 500 mcg PO DAILY Lactose-Reduced Food [Ensure Plus] 1 can PO DAILY Atorvastatin [Lipitor] 10 mg PO HS Calcium Carbonate/Vitamin D3 [Calcium 600Mg-D3 400 Unit Sfgl] 1 cap PO BID Changed clonazePAM [KlonoPIN] 0.5 mg PO TID@0900,1300,2100 PRN #6 tab PRN Reason: Anxiety Discontinued Furosemide [Lasix] 30 mg PO DAILY Discharge Medication List PARoxetine HCL [Paxil] 30 mg PO HS 11/15/23 [History] Aspirin 81 mg PO BID #60 tab 08/28/24 [Rx] Acetaminophen Tab [Tylenol] 650 mg PO Q6HR PRN tab 08/29/24 [Rx] Atorvastatin [Lipitor] 10 mg PO HS 10/15/24 [History] Calcium Carbonate/Vitamin D3 [Calcium 600Mg-D3 400 Unit Sfgl] 1 cap PO BID 10/15/24 [History] Cyanocobalamin [Vitamin B-12] 500 mcg PO DAILY 10/15/24 [History] Ferrous Sulfate [Iron (65 MG Elemental)] 325 mg PO DAILY 10/15/24 [History] Lactose-Reduced Food [Ensure Plus] 1 can PO DAILY 10/15/24 [History] Albuterol Inhaler [Ventolin Hfa Inhaler] 2 puff INHALATION RT-QID each 10/20/24 [Rx] Enoxaparin [Lovenox] 40 mg SQ DAILY each 10/20/24 [Rx] Famotidine [Pepcid] 20 mg PO BID tab 10/20/24 [Rx] clonazePAM [KlonoPIN] 0.5 mg PO TID@0900,1300,2100 PRN #6 tab 10/20/24 [Rx] dexAMETHasone [Decadron] 4 mg PO TID #24 tablet 10/20/24 [Rx] traMADol HCl [Ultram] 50 mg PO Q6H PRN #6 tab 10/20/24 [Rx] Follow up Appointment(s)/Referral(s): Keri Montes MD [STAFF PHYSICIAN] - 1-2 days Cristobal Ortega DO [Doctor of Osteopathic Medicine] - 1 Week Activity/Diet/Wound Care/Special Instructions: [facility] Continue with Decadron taper Continue with 4 L of oxygen and wean as tolerated Continue aspiration precautions with head of the bed elevated 30 to 45 degrees and supervision with meals Continue dysphagia 2 ground diet
--- NOTE | 2024-10-20 13:36 | P.PN ---
Subjective Progress Note Date: 10/20/24 This is a 73-year-old female patient who resides in a extended care facility and was brought into the emergency room yesterday after being found to be severely hypoxic and had recently been diagnosed with COVID infection. She has a history of hyperlipidemia, depression, osteoarthritis, non-smoker. She is seen in consultation in the emergency department. Poor historian. Difficult to get much information from the patient. She answers most questions with "I don't know". Chest x-ray reveals no acute pulmonary process. CT angiogram ruled out pulmonary embolism. There is patchy groundglass and consolidative opacities in the bilateral lungs with tree-in-bud nodularity suggestive of multifocal pne umonia. Fluid distention of the entire visualized esophagus suggestive of reflux. Moderate size hiatal hernia. White count 22.3. Hemoglobin 12.2. Platelets 283. Sodium 139. Potassium 4.3. Bicarb 24. BUN 24. Creatinine 0.6. Glucose 145. Influenza screen negative. RSV screen negative. COVID-19 screen positive. She is requiring Airvo high flow oxygen at 50 L and 65% FiO2 to maintain O2 saturations in the low 90s. The patient is seen today October 17, 2024 in follow-up on the selective care unit. She is currently sitting up in bed. She remains on Airvo high flow oxygen at 50 L and 55%. White count 10.9. Hemoglobin 11.8. Platelets 255. Glucose 147. proBNP 2190. She remains on Decadron. Continued on Lovenox. Continued on bronchodilators. Currently on Zosyn. Procalcitonin negative at 0.07. The patient is seen today October 20, 2024 in follow-up on the regular medical floor. She is awake and alert in no acute distress. She is maintaining O2 saturations in the 90s on 2 L/min per nasal cannula. She has been afebrile. Hemodynamically stable. She has normal saline running at 75 mL/h. She is continued on Decadron and bronchodilators. Lovenox for DVT prophylaxis. No new labs today. Objective - Vital Signs Vital signs: Vital Signs Temp 97.7 F 10/20/24 07:08 Pulse 52 L 10/20/24 07:08 Resp 18 10/20/24 11:32 BP 146/70 10/20/24 07:08 Pulse Ox 96 10/20/24 07:08 FiO2 40 10/19/24 08:10 Intake & Output 10/19/24 10/20/24 10/20/24 18:59 06:59 18:59 Intake Total 240 240 240 Output Total 600 300 Balance 240 -360 -60 Weight 66 kg Intake: Oral 240 240 240 Output: Urine 600 300 Other: Voiding Method External Catheter External Catheter External Catheter # Bowel Movements 3 - Exam GENERAL EXAM: Alert, 73-year-old female, on 2 L/min per nasal cannula, comfortable in no apparent distress. HEAD: Normocephalic. EYES: Normal reaction of pupils, equal size. NOSE: Clear with pink turbinates. THROAT: No erythema or exudates. NECK: No masses, no JVD. CHEST: No chest wall deformity. LUNGS: Equal air entry with few scattered rhonchi. CVS: S1 and S2 normal with no audible murmur, regular rhythm. ABDOMEN: No hepatosplenomegaly, normal bowel sounds, no guarding or rigidity. SPINE: No scoliosis or deformity SKIN: No rashes CENTRAL NERVOUS SYSTEM: No focal deficits, tone is normal in all 4 extremities. EXTREMITIES: There is no peripheral edema. No clubbing, no cyanosis. Peripheral pulses are intact. - Labs CBC & Chem 7: 10/19/24 07:05 10/19/24 07:05 Assessment and Plan Assessment: Acute hypoxemic respiratory failure secondary to COVID pneumonia, procalcitonin negative Coronavirus infection Leukocytosis secondary to above [facility] resident, poor historian Depression Hyperlipidemia Plan: The patient was seen and evaluated Medications reviewed Stable on 2 L nasal cannula Plan is to return to [facility] today I have personally seen and examined the patient, performed the documentation and the assessment and plan as written. Number of minutes spent on the visit: 10 Dictation was produced using [employer] software. Please excuse any grammatical, word or spelling errors.
[2024-10-20 13:56] VITALS: BMI 27.5
[2024-10-20 14:12] VITALS: BP 150/77; PULSE 62; TEMP 97.9
== END 2024-10-20 15:44 | DRG 177 ==
LOC: EC 16:52 → 4SSUR 18:49 → 3SCARD 10-16 05:57 → 4SSUR 10-19 15:41
PROVIDERS: ADMIT Hospitalist; ATTEND Hospitalist
DX: U07.1 COVID-19 (principal); J96.01 Acute respiratory failure with hypoxia; F03.93 Unspecified dementia, unspecified severity, with mood disturbance; F32.A Depression, unspecified; E78.5 Hyperlipidemia, unspecified; K21.9 Gastro-esophageal reflux disease without esophagitis; K44.9 Diaphragmatic hernia without obstruction or gangrene; Z96.653 Presence of artificial knee joint, bilateral; Z79.82 Long term (current) use of aspirin; Z79.899 Other long term (current) drug therapy
CPT/HCPCS: 36415; 71045; 71275; 80048; 80053; 83605; 83735; 83880; 84100; 84145; 84484; 85025; 85379; 85610; 85730; 87636; 93005; 94640; 94760; 96361; 96365; 96366; 96375; 96376; 99291

== ENCOUNTER → 2024-11-30 | Outpatient (CLI) | payer MEDICARE ==
--- NOTE | 2024-12-01 07:58 | NM ---
EXAMINATION TYPE: NM DatScan Brain SPECT DATE OF EXAM: 11/30/2024 COMPARISON: NONE CLINICAL INDICATION: Female, 73 years old with history of G20.A2 Parkinson's; TECHNIQUE: 10 drops of Lugol's solution was administered 1 hour prior to injection as a thyroid bloc ze agent. After the administration of 4.3 mCi I-123 Ioflupane DaTscan. Images obtained [address] injection. SPECT images of the brain were acquired with axial and coronal reconstructions. FINDINGS: There is symmetrical striatal activity noted. Activity maintains the typical comma-shaped appearance. Background activity is minimally increased but calculations fall within normal ranges. IMPRESSION: While background activity is minimally increased, calculations fall within normal ranges and the bila teral striatum maintains a normal appearance. Scintigraphic findings do not clearly suggest Parkinson 's disease or a Parkinsonian syndrome at this time. Follow-up can be considered if concern for early Parkinson's disease. [facility], , 12/01/2024 7:56 AM
== END | disposition home or self-care (01) ==
LOC: RADNMMAIN 10:41
PROVIDERS: ATTEND Psychiatry & Neurology Neurology
DX: G20.A2 Parkinson's disease without dyskinesia, with fluctuations (principal)
CPT/HCPCS: 78803; A9584

== ENCOUNTER → 2024-12-07 | Outpatient (CLI) | payer MEDICARE ==
--- NOTE | 2024-12-07 12:14 | FL ---
Exam Date: 12/07/2024 9:25 AM. Modified barium swallow for dysphagia. Consistencies administered: Various consistency of barium. Fluoro time: 44 ec No images were sent to PACS. Please see speech pathology report. DAP: Not reported mGym2 Gycm2 [facility], , 12/07/2024 12:12 PM
== END | disposition home or self-care (01) ==
LOC: RADFLMAIN 08:39
PROVIDERS: ATTEND Psychiatry & Neurology Neurology
DX: G20.A2 Parkinson's disease without dyskinesia, with fluctuations (principal); R13.19 Other dysphagia
CPT/HCPCS: 74230

== ENCOUNTER → 2025-02-16 | Outpatient (CLI) | payer MEDICARE ==
--- NOTE | 2025-02-16 09:20 | MR ---
EXAMINATION TYPE: MR brain wo con DATE OF EXAM: 02/16/2025 COMPARISON: Prior MRI brain November 2023. CT brain August 24, 2024 HISTORY: Dementia TECHNIQUE: Multiplanar, multisequence imaging of the brain and brainstem is performed without IV cont rast. FINDINGS: Diffusion weighted images demonstrate no evidence of a recent infarct or other diffusion abnormality. The ventricular system and cisternal spaces are normal in size and appearance. The brain volume is a ge appropriate. There are several scattered foci of T2 hyperintensity seen throughout the white matte r bilaterally. Approximately 15 scattered lesions are seen. Lesions are nonspecific in appearance and distribution. Midline structures redemonstrate persistent prominence of the pituitary gland and the sella turcica n ot significantly changed from most recent exams. The craniocervical junction appears within normal l imits. Normal vascular flow voids are present. The visualized sinuses are clear and the globes are in tact. IMPRESSION: Mild nonspecific white matter changes most likely on basis of product of chronic small ve ssel ischemic change in patient this age. Continued nonspecific fullness of the pituitary gland for p atient's age. No significant change from most recent prior MRI. [facility], , 02/16/2025 9:17 AM
== END | disposition home or self-care (01) ==
LOC: RADMRIMAIN 08:20
PROVIDERS: ATTEND Psychiatry & Neurology Neurology
DX: G30.1 Alzheimer's disease with late onset (principal); G25.2 Other specified forms of tremor; G20.A2 Parkinson's disease without dyskinesia, with fluctuations; R90.82 White matter disease, unspecified
CPT/HCPCS: 70551

== ENCOUNTER → 2025-03-20 | Outpatient (CLI) | payer MEDICARE ==
--- NOTE | 2025-03-20 14:33 | MR ---
EXAMINATION TYPE: MR angio head wo con DATE OF EXAM: 03/20/2025 COMPARISON: MRA brain 2010. MRI brain February 16, 2025 HISTORY: Abnormal MRI. TECHNIQUE: Time of flight images focusing on the [place] were performed without contrast.. 2-D and 3-D postprocessing imaging is performed on independent workstation. FINDINGS: Vertebral arteries are redemonstrated patent to the basilar junction. Right vertebral arter y is redemonstrated dominant. Persistent patent right posterior communicating artery. The left newspaper columnist ior communicating artery is smaller caliber and less well-visualized on current study. No large vesse l occlusion or aneurysm is seen. Patent anterior communicating artery is redemonstrated. Tortuous course of the distal internal caroti d arteries bilaterally is redemonstrated. No aneurysm is seen. No large vessel occlusion noted. IMPRESSION: No large vessel occlusion or aneurysm at the level of [place]. [facility], , 03/20/2025 2:31 PM
== END | disposition home or self-care (01) ==
LOC: RADMRIMAIN 13:44
PROVIDERS: ATTEND Psychiatry & Neurology Neurology
DX: G30.1 Alzheimer's disease with late onset (principal); G25.2 Other specified forms of tremor; R93.0 Abnormal findings on diagnostic imaging of skull and head, not elsewhere classified; R41.3 Other amnesia
CPT/HCPCS: 70544